=== PATIENT | male | born 1980 | race Two or more races ===

== ENCOUNTER 2024-03-20 08:13 | Emergency (ER) | payer MEDICAID, OTHER ==
[~2024-03-20] VITALS: Ht 180.3 cm; Wt 144.7 kg
--- NOTE | 2024-03-20 08:46 | DVH ---
CHEST RADIOGRAPH Indication: cough Technique: Single frontal view of the chest was obtained Comparison: None FINDINGS: Lines and Tubes: None Lungs: No focal consolidation. Pleura: No effusion. No pneumothorax. Cardiomediastinal contours: Unremarkable Bones: No acute osseous abnormality. IMPRESSION: No acute cardiopulmonary disease.
--- NOTE | 2024-03-20 08:58 | ED.PDOC ---
SOB-HPI HPI Comments 43 year old male presents to the ED with chief complaint of SOB. Patient reports that he has been experiencing SOB with associated wheezing, cough, fever, chills, and sore throat intermittently for the past few weeks. Patient relays that he has needed to wake up multiple times last night gasping for air. Patient states he does not currently have a PCP as he just got insurance. Patient admits to smoking cigarettes. Patient denies any chest pain, dizziness, headache, N/V, or hemoptysis. Chief Complaint: Shortness of Breath Time Seen by MD: 08:54 Reviewed notes: Nurses Notes, Medications, Allergies Information Source: Patient Mode of Arrival: Ambulatory Severity: Moderate Timing: Weeks Duration: Since onset Context: At Rest PE Risk Factors: None History of: None Prehospital treatment: None Modifying Factors: Nothing Associated Signs and Symptoms: Fever, Wheeze, Cough, Sore Throat If cough with SOB: Productive, Yellow Past Medical History PAST MEDICAL HISTORY: Denies Surgical History: Denies all surgeries Family History Family History: Reviewed,noncontributory to illness Social History Smoker: Cigarettes Alcohol: Denies ETOH Use Drugs: Marijuana Lives In: Home Constitutional: reports: chills, fever; denies: diaphoresis, fatigue, malaise, sweats, weakness, others EENTM: reports: throat pain; denies: blurred vision, double vision, ear bleeding, ear discharge, ear drainage, ear pain, ear ringing, eye pain, eye redness, hearing loss, mouth pain, mouth swelling, nasal discharge, nose bleeding, nose congestion, nose pain, photophobia, tearing, throat swelling, voice changes, others Respiratory: reports: cough, shortness of breath, wheezing; denies: hemoptysis, orthopnea, SOB at rest, SOB with excertion, stridor, others Cardiovascular: denies: chest pain, dizzy spells, diaphoresis, Dyspnea on exertion, edema, irregular heart beat, left arm pain, lightheadedness, palpitations, PND, syncope, others Gastrointestinal: denies: abdomen distended, abdominal pain, blood streaked bowels, constipated, diarrhea, dysphagia, difficulty swallowing, hematemesis, melena, nausea, poor appetite, poor fluid intake, rectal bleeding, rectal pain, vomiting, others Genitourinary: denies: burning, dysuria, flank pain, frequency, hematuria, incontinence, penile discharge, penile sore, pain, testicle pain, testicle swelling, urgency, others Neurological: denies: dizziness, fainting, headache, left sided numbness, left sided weakness, numbness, paresthesia, pre-existing deficit, right sided numbness, right sided weakness, seizure, speech problems, tingling, tremors, weakness, others Musculoskeletal: denies: back pain, gout, joint pain, joint swelling, muscle pain, muscle stiffness, neck pain, others Integumetry: denies: bruises, change in color, change in hair/nails, dryness, laceration, lesions, lumps, rash, wounds, others Allergic/Immunocompromised: denies: Difficulty Healing, Frequent Infections, Hives, Itching, others Hematologic/Lymphatic: denies: anemia, blood clots, easy bleeding, easy bruising, swollen glands, others Endocrine: denies: excessive hunger, excessive sweating, excessive thirst, excessive urination, flushing, intolerance to cold, intolerance to heat, unexplained weight gain, unexplained weight loss, others Psychiatric: denies: anxiety, bipolar disorder, depression, hopeless, panic disorder, schizophrenia, sleepless, suicidal, others All Other Systems: Reviewed and Negative Physical Exam General Appearance: No Apparent Distress, Normal HEENT: Normal ENT Inspection, PERRL/EOMI, Pharyngeal Erythema, Other (Bilateral tonsilar edema and pharyngeal erythema, no exudates.) Neck: Full Range of Motion, Non-Tender, Normal, Normal Inspection Respiratory: Chest Non-Tender, Lungs Clear, No Accessory Muscle Use, No Respiratory Distress, Wheezing (Mild expiratory wheezing) Cardiovascular: No Edema, No JVD, No Murmur, No Gallop, Normal Peripheral Pulses, Tachycardia Breast Exam: Deferred Gastrointestinal: No Organomegaly, Non Tender, No Pulsatile Mass, Normal Bowel Sounds, Soft Genitalia: Deferred Pelvic: Deferred Rectal: Deferred Extremities: No calf tenderness, Normal capillary refill, Normal inspection, Normal range of motion, Non-tender, No pedal edema Musculoskeletal : Apperance: Normal 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 Was a procedure done?: No Differential Dx Differential Diagnosis: Asthma, Pneumonia, Respiratory Distress, Pharyngitis, URI X-Ray, Labs, Meds, VS Vital Signs Date Time Temp Pulse Resp B/P (MAP) Pulse Ox O2 Delivery O2 Flow Rate FiO2 03/20/24 10:04 Room Air* 0 21 03/20/24 10:03 100 18 100 Room Air* 0 21 03/20/24 10:02 98.0 100 18 186/121 (142) 97 98.0 03/20/24 08:35 98.1 105 20 172/111 (131) 99 Lab Test 03/20/24 08:49 03/20/24 08:32 Range/Units White Blood Count 9.9 4.4-10.8 10^3/uL Red Blood Count 5.33 4.5-5.90 10^6/uL Hemoglobin 14.3 13.5-17.5 g/dL Hematocrit 44.0 41.0-53.0 % Mean Corpuscular Volume 82.6 80.0-100.0 fL Mean Corpuscular Hemoglobin 26.8 L 28.0-32.0 pg Mean Corpuscular Hemoglobin Concent 32.5 32.0-36.0 g/dL Red Cell Distribution Width 17.0 H 11.8-14.3 % Platelet Count 356 140-450 10^3/uL Mean Platelet Volume 7.7 6.9-10.8 fL Neutrophils (%) (Auto) 67.7 37.0-80.0 % Lymphocytes (%) (Auto) 22.0 10.0-50.0 % Monocytes (%) (Auto) 6.5 0.0-12.0 % Eosinophils (%) (Auto) 1.9 0.0-7.0 % Basophils (%) (Auto) 1.9 0.0-2.0 % Neutrophils # (Auto) 6.7 1.6-8.6 10 ^3/uL Lymphocytes # (Auto) 2.2 0.4-5.4 10 ^3/uL Monocytes # (Auto) 0.6 0-1.3 10 ^3/uL Eosinophils # (Auto) 0.2 0-0.8 10 ^3/uL Basophils # (Auto) 0.2 0-0.2 10 ^3/uL Nucleated Red Blood Cells 0.1 % D-Dimer, Quantitative 1.45 H 0.0-0.49 mg/L FEU Sodium Level 136 136-145 mmol/L Potassium Level 3.9 3.5-5.1 mmol/L Chloride Level 105 98-107 mmol/L Carbon Dioxide Level 27 20-31 mmol/L Anion Gap 4 L 5-15 Blood Urea Nitrogen 16 9-23 mg/dL Creatinine 1.13 0.700-1.30 mg/dL Glomerular Filtration Rate Calc 82 >90 mL/min BUN/Creatinine Ratio 14.2 10.0-20.0 Serum Glucose 151 H 74-106 mg/dL Calcium Level 9.6 8.7-10.4 mg/dL Magnesium Level 2.2 1.6-2.6 mg/dL Total Bilirubin 0.7 0.2-1.0 mg/dL Aspartate Amino Transferase (AST) 36 13-40 U/L Alanine Aminotransferase (ALT) 27 7-40 U/L Alkaline Phosphatase 171 H 46-116 U/L Total Protein 8.1 5.7-8.2 g/dL Albumin 4.3 3.2-4.8 g/dL Influenza Type A Antigen Negative Negative Influenza Type B Antigen Negative Negative SARS-CoV-2 Antigen (Rapid) Negative NEGATIVE Group A Streptococcus Rapid Positive Current Medications Medications (Trade) Dose Ordered Sig/Ahsan Route Start Time Stop Time Status Last Admin Albuterol (Ventolin Medneb) 2.5 mg ONCE ONCE NEB 03/20/24 09:45 03/20/24 09:48 DC 03/20/24 10:04 Methylprednisolone Sodium Succinate (Solu Medrol) 40 mg ONCE ONCE IM 03/20/24 09:45 03/20/24 09:48 DC 03/20/24 10:01 Chest XR: FINDINGS: Lines and Tubes: None Lungs: No focal consolidation. Pleura: No effusion. No pneumothorax. Cardiomediastinal contours: Unremarkable Bones: No acute osseous abnormality. IMPRESSION: No acute cardiopulmonary disease. Time of 1ST Reevaluation: 09:54 Reevaluation 1ST: Improved Patient Education/Counseling: Diagnosis, Treatment Family Education/Counseling: No Family Present Additional Information I reviewed the following notes from patient's past medical encounters: None The following tests were ordered, and results were reviewed by me: Chest XR, COVID swab, Magnesium, Strep swab, Influenza swab, CBC, CMP, D-Dimer, UA Additional Information was gathered from interviewing the following independent historians: None I reviewed and agreed with the following test results read by other providers: Chest XR I discussed treatment and results with medical personnel. Departure 1 Departure Time of Disposition: 11:02 Impression: Primary Impression: COPD exacerbation Additional Impressions: Strep throat Viral URI with cough Disposition: HOME / SELF CARE / HOMELESS Condition: Stable Additional Instructions: Thank you for visiting our Emergency Room. I wish you full and complete recovery. Please follow the following instructions: 1. Take your medication bottles with you to EVERY DOCTOR'S VISIT (including your primary doctor). 2. Please follow up with your primary doctor in 2-3 days or sooner if symptoms do not improve. 3. Please read all the papers given to you at the time of the discharge so that you understand your condition better. 4. Please note that the emergency room visits are focused and not necessarily comprehensive. Therefore, it is possible that some occult medical conditions may go undiagnosed in the ER. 5. The emergency room visits are not and should not be thought of as replacement for regular visits with your primary doctor. 6. Therefore, it is absolutely critical that you follows up with your primary doctor on regular basis to make sure you receives a complete and comprehensive care. 7. I recommended the you take the hospital discharge papers to your primary care physician and other doctors' offices with you. 8. Go to your nearest emergency room if you think your condition gets worse or you think your condition is an emergency. e-Prescriptions Dextromethorphan Polistirex (Robitussin 12 Hour Cough) 30 Mg/5 Ml Kristal 30 MG PO Q6HPRN PRN for 7 Days, #100 ML Prov: JOHN HORNE MD 03/20/24 Penicillin V Potassium (Veetids) 500 Mg Tab 1 TAB PO BID, #20 TAB Prov: JOHN HORNE MD 03/20/24 Prednisone (Prednisone) 10 Mg Mtat 20 MG PO DAILY for 5 Days, #10 PACK Prov: JOHN HORNE MD 03/20/24 Albuterol Sulfate (VENTOLIN MDI) 90 Mcg Ih 90 MCG IN Q4HPRN PRN for 10 Days, #1 INH Prov: JOHN HORNE MD 03/20/24 Discharged With: Self Critical Care Note Critical Care Time?: No Stability Stability form required: No Heart Score Heart Score: Heart Score Response (Comments) Value History N/A 0 EKG N/A 0 Age N/A 0 Risk Factors N/A 0 Troponin N/A 0 Total 0 I personally scribed for JOHN HORNE MD ([email or web address]) on 03/20/24 at 08:58. Electronically submitted by Alcon Pantoja ([email or web address]). I personally scribed for JOHN HORNE MD ([email or web address]) on 03/20/24 at 09:29. Electronically submitted by Alcon Pantoja ([email or web address]). JOHN HORNE MD Mar 20, 2024 08:58
[2024-03-20 09:09] LABS: Basophils # (auto) 0.2 10 ^3/uL (0-0.2); Basophils % (auto) 1.9 % (0.0-2.0); Eosinophils # (auto) 0.2 10 ^3/uL (0-0.8); Eosinophils % (auto) 1.9 % (0.0-7.0); Hemoglobin 14.3 g/dL (13.5-17.5); Lymphocytes # (auto) 2.2 10 ^3/uL (0.4-5.4); Mean Corpuscular Hemoglobin 26.8 pg (28.0-32.0); Mean Corpuscular Hgb Conc. 32.5 g/dL (32.0-36.0); Mean Corpuscular Volume 82.6 fL (80.0-100.0); Monocytes # (auto) 0.6 10 ^3/uL (0-1.3); Monocytes % (auto) 6.5 % (0.0-12.0); Neutrophils # (auto) 6.7 10 ^3/uL (1.6-8.6); Neutrophils % (auto) 67.7 % (37.0-80.0); Nucleated Red Blood Cells % 0.1 %; Platelet Count (auto) 356 10^3/uL (140-450); Red Blood Cells 5.33 10^6/uL (4.5-5.90); White Blood Cell 9.9 10^3/uL (4.4-10.8)
[2024-03-20 09:17] LABS: Alanine Aminotransferase 27 U/L (7-40); Albumin 4.3 g/dL (3.2-4.8); Anion Gap 4 (5-15); Aspartate Aminotransferase 36 U/L (13-40); BUN/Creatinine Ratio 14.2 (10.0-20.0); Blood Urea Nitrogen 16 mg/dL (9-23); Calcium 9.6 mg/dL (8.7-10.4); Carbon Dioxide 27 mmol/L (20-31); Chloride 105 mmol/L (98-107); Magnesium 2.2 mg/dL (1.6-2.6); Potassium 3.9 mmol/L (3.5-5.1); Sodium 136 mmol/L (136-145)
[2024-03-20 09:18] LABS: Bilirubin, Total 0.7 mg/dL (0.2-1.0); Total Protein 8.1 g/dL (5.7-8.2)
[2024-03-20 09:19] LABS: Alkaline Phosphatase 171 U/L (46-116); Glucose 151 mg/dL (74-106)
[2024-03-20 09:26] LABS: COVID19 ANTIGEN SOFIA FIA NEGATIVE (NEGATIVE); Rapid Influenza A Negative (Negative); Rapid Influenza B Negative (Negative); Rapid Strep A Screen-Throat Positive
[2024-03-20] MEDS: methylPREDNISolone SOD SUCC 40 MG/ML VL IM ONE (10:01)
[2024-03-20 10:02] VITALS: BP 186/121; TEMP 98
[2024-03-20 10:03] VITALS: PULSE 100; RESP 18; O2SAT 100
[2024-03-20] MEDS: ALBUTEROL SULF 2.5 MG/0.5ML(0.5%) NEB SOLN NEB ONE (10:04)
[2024-03-20] MEDS: IOHEXOL 350 MG/ML 100ML IJ ONE (10:30)
--- NOTE | 2024-03-20 11:06 | DVH ---
CTA Chest with intravenous contrast INDICATION: SOB, elevated ddimer COMPARISON: None TECHNIQUE: Multidetector spiral CTA of the chest was performed of the chest with intravenous contrast . PULMONARY ANGIOGRAPHY PROTOCOL was utilized using a bolus-tracking technique centered on the main p ulmonary artery. Axial, coronal and sagittal multiplanar and MIP reformats were performed. CONTRAST: Type of contrast: Omni 350 Contrast injected: 100 ml Radiation dose : Chest: CTDI volume is 55 mGy. Dose-length product is 1003.74 mGy*cm The dose indicators for CT are the volume computed Tomography (CT) dose Index (CTDIvol) and the dose Length product (DLP), and are measured in units of mGy and mGy-cm, respectively. These indicators are not patient dose, but values generated from the CT scanner acquisition factors. The report includes radiation exposure data for exposures received during this examination. Findings: Pulmonary artery: No pulmonary embolism Lower neck: Normal thyroid. Lungs: Mild patchy ground-glass opacities in both lungs. Heart/Vascular Structures: [id number] cardiomegaly. Small pericardial effusion. Lymph Nodes: Prominent mediastinal lymph nodes measuring up to 12 mm in short axis. Pleura: No pleural effusion or significant pneumothorax. Musculoskeletal: No acute osseous abnormality. Soft tissues: Normal. Upper abdomen: Limited portions of the upper abdomen are unremarkable. IMPRESSION: 1. No pulmonary embolism. 2. Kumz-ta-[id number] cardiomegaly. Small pericardial effusion. Mediastinal lymphadenopathy. Patchy g round-glass opacities in both lungs are nonspecific. Consider congestive failure. Consider infectiou s/ inflammatory process. Clinical correlation and continued follow-up is recommended. HS:Y
[2024-03-20 11:08] LABS: Urine Bacteria None Seen /hpf (None Seen)
[2024-03-20] MEDS ORDERED: DEXT1SUS PO (11:09)
[2024-03-20] MEDS ORDERED: PRED1PAK9 PO (11:09)
[2024-03-20] MEDS ORDERED: ALBUAER3 IN (11:09)
[2024-03-20] MEDS ORDERED: PENI500T2 PO (11:09)
[2024-03-20 11:27] LABS: Urine Blood Negative /uL (Negative); Urine Clarity Clear (Clear); Urine Color Yellow (Yellow); Urine Protein, UAD Negative (Negative); Urine Squamous Epithelial Cell FEW /hpf (<5); Urine Urobilinogen 2 mg/dL (Negative); Urine WBC 1 /hpf (0 - 3); Urine pH 6.5 (5.0-9.0)
== END 2024-03-20 11:20 | disposition home or self-care (01) ==
LOC: ER 08:13
DX: J44.1 Chronic obstructive pulmonary disease with (acute) exacerbation (principal); J02.0 Streptococcal pharyngitis; F17.210 Nicotine dependence, cigarettes, uncomplicated; Z20.822 Contact with and (suspected) exposure to COVID-19
CPT/HCPCS: 36415; 71045; 71275; 80053; 81001; 83735; 85025; 85379; 87426; 87804; 87880; 94640; 96372; 99285; J2919; Q9967

== ENCOUNTER 2024-03-31 19:10 | Emergency (ER) | payer MEDICAID ==
[~2024-03-31] VITALS: Ht 180.3 cm; Wt 140.9 kg
[~2024-03-31 19:10] MED LIST: ALBUAER3 IN; DEXT1SUS PO; PENI500T2 PO; PRED1PAK9 PO
[2024-03-31 19:13] VITALS: BP 182/119; RESP 20; O2SAT 95
[2024-03-31 19:19] VITALS: PULSE 88
[2024-03-31] MEDS ORDERED: ASPirin 325 MG TAB PO ONE (19:30)
[2024-03-31] MEDS ORDERED: NITROGLYCERIN 0.4 MG SL TAB SL ONE (19:30)
[2024-03-31 19:44] LABS: Basophils # (auto) 0.1 10 ^3/uL (0-0.2); Basophils % (auto) 0.8 % (0.0-2.0); Eosinophils # (auto) 0.2 10 ^3/uL (0-0.8); Eosinophils % (auto) 1.9 % (0.0-7.0); Hemoglobin 13.9 g/dL (13.5-17.5); Lymphocytes # (auto) 1.9 10 ^3/uL (0.4-5.4); Lymphocytes % (auto) 21.2 % (10.0-50.0); Mean Corpuscular Hemoglobin 27.2 pg (28.0-32.0); Mean Corpuscular Hgb Conc. 33.1 g/dL (32.0-36.0); Mean Corpuscular Volume 82.1 fL (80.0-100.0); Monocytes # (auto) 0.9 10 ^3/uL (0-1.3); Monocytes % (auto) 10.3 % (0.0-12.0); Neutrophils % (auto) 65.8 % (37.0-80.0); Nucleated Red Blood Cells % 0.2 %; Platelet Count (auto) 339 10^3/uL (140-450); Red Blood Cells 5.11 10^6/uL (4.5-5.90); Red Cell Distribution Width 17.4 % (11.8-14.3); White Blood Cell 9.1 10^3/uL (4.4-10.8)
--- NOTE | 2024-03-31 19:50 | ED.PDOC ---
HPI Comments HPI: Poor Historian. 43-year-old male presents to emergency department for three day history of midsternal chest pain right-sided 20 minutes prior to arrival. Pain is crushing in nature. Patient has some mild associated nausea and vomiting. Patient states he was admitted in the hospital here a week ago for the same thing. Patient was hypertensive in triage 197/117. The other extremities 182/119. Past Medcial History: COPD, hypertension, obesity Past Surgical History: Denies any Patient denies taking any medications. Has no PCP. REVIEW OF SYSTEMS: CONSTITUTIONAL: Denies acute: fever, diaphoresis, chills, generalized weakness. HEAD: Denies acute: headache, photophobia Eyes: Denies acute: Double vision, vision loss, eye pain, eye discharge. EARS: Denies acute: tinnitus, hearing loss, ear discharge, ear pain, THROAT: Denies acute: sore throat, swelling, difficulty swallowing , pain with swallowing, change in voice. NECK: Denies acute: neck pain, neck swelling, stiff neck. HEART: Denies acute : , palpitations, LUNGS: Denies acute: SOB, wheezing, cough, hemoptysis ABDOMEN: Denies acute: abdominal pain, diarrhea, melena , hematemesis, hematochezia SKIN: Denies acute: rash, redness, lesions, itchiness. EXTREMITIES: Denies acute: calf pain, numbness, tingling, weakness, denies pain in extremity. Denies acute: Low back pain. Neuro: Denies acute: focal neurological deficit, motor or sensory focal neurological deficit, tremors, seizure like activity, confusion, dizziness, change in mental status, loss of bowel or bladder function, cauda equina like symptoms. : Denies acute: dysuria, hematuria, flank pain, increase in urinary frequency. PSYCH: Denies acute: hallucination, suicidal ideation, homicidal ideation. PHYSICAL EXAM: General: mild acute distress, awake and alert. Head: normocephalic, atraumatic. Neck: supple, trachea is midline, no swelling. Throat: Normal phonation. Eyes:, no erythema, no purulent discharge, no proptosis, no icterus. Heart: regular rate, regular rhythm, no significant murmur appreciated. Lungs: no apparent respiratory distress, Able to speak in full sentences. No wheezing, no rhonchi, no crackles. No stridors Clear to auscultation bilaterally. Abdomen: non tender to palpation, non distended, soft, no guarding, no rebound, + bowel sounds. Obese Neuro: Awake, Alert, oriented to name, self, situation, follows commands GCS=15. Speech is normal. Skin: no petechia, no purpura, no cyanosis, non-pale, not jaundice. Lower extremities: --trace bilateral - Pitting edema no deformity, no focal swelling, no calf TTP. Makes eye contact. moves all four extremities. Face: no apparent facial droop. Ambulating in the ED independently. Chief Complaint: Chest Pain Time Seen by MD: 19:11 Reviewed Notes: Nurses Notes, Allergies Allergies: Coded Allergies: Cephalexin (Verified Allergy, Unknown, 03/31/24) Home Meds Active Scripts Dextromethorphan Polistirex (Robitussin 12 Hour Cough) 30 Mg/5 Ml Kristal, 30 MG PO Q6HPRN PRN for 7 Days, #100 ML Prov:JOHN HORNE MD 03/20/24 Penicillin V Potassium (Veetids) 500 Mg Tab, 1 TAB PO BID, #20 TAB Prov:JOHN HORNE MD 03/20/24 Prednisone (Prednisone) 10 Mg Matt, 20 MG PO DAILY for 5 Days, #10 PACK Prov:JOHN HORNE MD 03/20/24 Albuterol Sulfate (VENTOLIN MDI) 90 Mcg Ih, 90 MCG IN Q4HPRN PRN for 10 Days, #1 INH Prov:JOHN HORNE MD 03/20/24 Information Source: Patient Mode of Arrival: Ambulatory Past Medical History PAST MEDICAL HISTORY: Denies Surgical History: Denies all surgeries Family History Family History: Reviewed,noncontributory to illness Social History Smoker: Cigarettes Alcohol: Denies ETOH Use Drugs: Marijuana Lives In: Home X-Ray, Labs, Meds, VS Vital Signs Date Time Temp Pulse Resp B/P (MAP) Pulse Ox O2 Delivery O2 Flow Rate FiO2 03/31/24 19:19 88 03/31/24 19:13 98.7 88 20 182/119 (140) 95 Lab Test 03/31/24 20:03 03/31/24 19:15 Range/Units Troponin I High Sensitivity 41 40 </=54 ng/L White Blood Count 9.1 4.4-10.8 10^3/uL Red Blood Count 5.11 4.5-5.90 10^6/uL Hemoglobin 13.9 13.5-17.5 g/dL Hematocrit 42.0 41.0-53.0 % Mean Corpuscular Volume 82.1 80.0-100.0 fL Mean Corpuscular Hemoglobin 27.2 L 28.0-32.0 pg Mean Corpuscular Hemoglobin Concent 33.1 32.0-36.0 g/dL Red Cell Distribution Width 17.4 H 11.8-14.3 % Platelet Count 339 140-450 10^3/uL Mean Platelet Volume 7.5 6.9-10.8 fL Neutrophils (%) (Auto) 65.8 37.0-80.0 % Lymphocytes (%) (Auto) 21.2 10.0-50.0 % Monocytes (%) (Auto) 10.3 0.0-12.0 % Eosinophils (%) (Auto) 1.9 0.0-7.0 % Basophils (%) (Auto) 0.8 0.0-2.0 % Neutrophils # (Auto) 6.0 1.6-8.6 10 ^3/uL Lymphocytes # (Auto) 1.9 0.4-5.4 10 ^3/uL Monocytes # (Auto) 0.9 0-1.3 10 ^3/uL Eosinophils # (Auto) 0.2 0-0.8 10 ^3/uL Basophils # (Auto) 0.1 0-0.2 10 ^3/uL Nucleated Red Blood Cells 0.2 % D-Dimer, Quantitative 1.22 H 0.0-0.49 mg/L FEU Sodium Level 138 136-145 mmol/L Potassium Level 4.5 3.5-5.1 mmol/L Chloride Level 106 98-107 mmol/L Carbon Dioxide Level 23 20-31 mmol/L Anion Gap 9 5-15 Blood Urea Nitrogen 19 9-23 mg/dL Creatinine 1.07 0.700-1.30 mg/dL Glomerular Filtration Rate Calc 88 >90 mL/min BUN/Creatinine Ratio 17.8 10.0-20.0 Serum Glucose 176 H 74-106 mg/dL Lactic Acid Level 1.8 0.4-2.0 mmol/L Calcium Level 9.7 8.7-10.4 mg/dL Magnesium Level 2.0 1.6-2.6 mg/dL Total Bilirubin 0.6 0.2-1.0 mg/dL Aspartate Amino Transferase (AST) 33 13-40 U/L Alanine Aminotransferase (ALT) 28 7-40 U/L Alkaline Phosphatase 177 H 46-116 U/L B-Type Natriuretic Peptide 422.86 0-100 pg/mL Total Protein 7.0 5.7-8.2 g/dL Albumin 4.2 3.2-4.8 g/dL Departure 1 Departure Time of Disposition: 21:14 Impression: Primary Impression: Chest pain Additional Impressions: Hypertension Eloped from emergency department Disposition: 07 LEFT AWOL/ELOPED Condition: Other JULIANNA DUFF DO Mar 31, 2024 19:50
--- NOTE | 2024-03-31 19:51 | DVH ---
CHEST RADIOGRAPH Indication: cp/sob Technique: Single frontal view of the chest was obtained COMPARISON: XY CHEST PORTABLE on DOS: 03/20/24 FINDINGS: Lines and Tubes: None Lungs: Congestion Pleura: No effusion. No pneumothorax. Cardiomediastinal contours: Cardiomegaly Bones: Unremarkable IMPRESSION: Congestion
[2024-03-31 20:04] LABS: Alanine Aminotransferase 28 U/L (7-40); Albumin 4.2 g/dL (3.2-4.8); Anion Gap 9 (5-15); Aspartate Aminotransferase 33 U/L (13-40); BUN/Creatinine Ratio 17.8 (10.0-20.0); Blood Urea Nitrogen 19 mg/dL (9-23)
[2024-03-31 20:05] LABS: Bilirubin, Total 0.6 mg/dL (0.2-1.0)
[2024-03-31 20:06] LABS: Alkaline Phosphatase 177 U/L (46-116); Calcium 9.7 mg/dL (8.7-10.4); Carbon Dioxide 23 mmol/L (20-31); Chloride 106 mmol/L (98-107); Glucose 176 mg/dL (74-106); Potassium 4.5 mmol/L (3.5-5.1); Sodium 138 mmol/L (136-145)
[2024-03-31] MEDS ORDERED: FUROSEMIDE 20 MG/2 ML VIAL IV ONE (20:45)
--- NOTE | 2024-03-31 20:46 | ECG ---
[facility] Test Date: 2024-03-31 Test Time: 19:19:09 Pat Name: RYAN HERNANDEZ Department: ER Room: Gender: M Safety Tech: DESI : 1980 Requested By: JULIANNA DUFF Order Number: [id number] Reading MD: Christo Moura Measurements Intervals [place] Rate: 88 P: 57 [place]: 190 QRS: 82 QRSD: 119 T: 49 QT: 387 QTc: 469 Interpretive Statements Sinus arrhythmia Probable left atrial enlargement Nonspecific intraventricular conduction delay Electronically Signed On 04-02-2024 16:41:04 PST by Christo Moura Please click the below link to view image of tracing.
== END 2024-03-31 21:07 | disposition left against medical advice (07) ==
LOC: EDBD → ER 19:10
DX: R07.89 Other chest pain (principal); I10 Essential (primary) hypertension; F17.210 Nicotine dependence, cigarettes, uncomplicated; J44.9 Chronic obstructive pulmonary disease, unspecified; E66.9 Obesity, unspecified; Z79.52 Long term (current) use of systemic steroids; Z88.1 Allergy status to other antibiotic agents; Z79.899 Other long term (current) drug therapy
CPT/HCPCS: 36415; 71045; 80053; 80307; 81001; 83605; 83735; 83880; 84484; 85025; 85379; 93005

== ENCOUNTER 2024-04-02 07:06 | Inpatient (IN) | payer MEDICAID ==
[~2024-04-02] VITALS: Ht 177.8 cm; Wt 140.0 kg
--- NOTE | 2024-04-02 07:22 | ED.PDOC ---
SOB-HPI HPI Comments 43 year old male presents to the ED with chief complaint of SOB. Patient reports that he has been experiencing SOB with associated coughing and chest discomfort for the past week, however, he has also had hemoptysis and leg swelling since yesterday. Patient notes he has history of COPD and CHF, however, patient denies taking a water pill. Patient's BP noted to be 182/108 in triage. Patient denies any N/V/D, fever, chills, sore throat, numbness, or weakness. Chief Complaint: Shortness of Breath Time Seen by MD: 07:19 Reviewed notes: Nurses Notes, Medications, Allergies Information Source: Patient Mode of Arrival: Ambulatory Severity: Moderate Timing: Days Duration: Since onset Context: At Rest PE Risk Factors: None History of: COPD, CHF Prehospital treatment: None Modifying Factors: Nothing Associated Signs and Symptoms: Cough, Hemoptysis, Chest Pain, Leg Swelling Quality: Pressure Radiation: No Radiation Location: Substernal If cough with SOB: Productive, Brown, Bloody Past Medical History PAST MEDICAL HISTORY: Denies Surgical History: Denies all surgeries Family History Family History: Reviewed,noncontributory to illness Social History Smoker: Cigarettes Alcohol: Denies ETOH Use Drugs: Marijuana Lives In: Home Constitutional: denies: chills, diaphoresis, fatigue, fever, malaise, sweats, weakness, others EENTM: denies: blurred vision, double vision, ear bleeding, ear discharge, ear drainage, ear pain, ear ringing, eye pain, eye redness, hearing loss, mouth pain, mouth swelling, nasal discharge, nose bleeding, nose congestion, nose pain, photophobia, tearing, throat pain, throat swelling, voice changes, others Respiratory: reports: cough, hemoptysis, shortness of breath; denies: orthopnea, SOB at rest, SOB with excertion, stridor, wheezing, others Cardiovascular: reports: chest pain, edema; denies: dizzy spells, diaphoresis, Dyspnea on exertion, irregular heart beat, left arm pain, lightheadedness, palpitations, PND, syncope, others Gastrointestinal: denies: abdomen distended, abdominal pain, blood streaked bowels, constipated, diarrhea, dysphagia, difficulty swallowing, hematemesis, melena, nausea, poor appetite, poor fluid intake, rectal bleeding, rectal pain, vomiting, others Genitourinary: denies: burning, dysuria, flank pain, frequency, hematuria, incontinence, penile discharge, penile sore, pain, testicle pain, testicle swelling, urgency, others Neurological: denies: dizziness, fainting, headache, left sided numbness, left sided weakness, numbness, paresthesia, pre-existing deficit, right sided numbness, right sided weakness, seizure, speech problems, tingling, tremors, weakness, others Musculoskeletal: denies: back pain, gout, joint pain, joint swelling, muscle pain, muscle stiffness, neck pain, others Integumetry: denies: bruises, change in color, change in hair/nails, dryness, laceration, lesions, lumps, rash, wounds, others Allergic/Immunocompromised: denies: Difficulty Healing, Frequent Infections, Hives, Itching, others Hematologic/Lymphatic: denies: anemia, blood clots, easy bleeding, easy bruising, swollen glands, others Endocrine: denies: excessive hunger, excessive sweating, excessive thirst, excessive urination, flushing, intolerance to cold, intolerance to heat, unexplained weight gain, unexplained weight loss, others Psychiatric: denies: anxiety, bipolar disorder, depression, hopeless, panic disorder, schizophrenia, sleepless, suicidal, others All Other Systems: Reviewed and Negative Physical Exam General Appearance: Moderate Distress, Other (Increased BMI) HEENT: Normal ENT Inspection, PERRL/EOMI Neck: Full Range of Motion, Non-Tender, Normal, Normal Inspection Respiratory: Chest Non-Tender, Lungs Clear, No Accessory Muscle Use, No Respiratory Distress, Normal Breath Sounds Cardiovascular: No Edema, No JVD, No Murmur, No Gallop, Normal Peripheral Pulses, Regular Rate/Rhythm Breast Exam: Deferred Gastrointestinal: No Organomegaly, Non Tender, No Pulsatile Mass, Normal Bowel Sounds, Soft Genitalia: Deferred Pelvic: Deferred Rectal: Deferred Extremities: No calf tenderness, Normal capillary refill, Normal range of motion, Non-tender, Pedal edema Musculoskeletal : Apperance: Normal Neurologic: Alert, business practices supervisor II-XII nml as Tested, No Motor Deficits, Normal Affect, Normal Mood, No Sensory Deficits Cerebellar Function: NOT DONE Reflexes: NOT DONE Skin: Dry, Normal Color, Warm Peripheral Pulses: 3+ Radial (R), 3+ Radial (L) Lymphatic: No Adenopathy Was a procedure done? Was a procedure done?: No Differential Dx Differential Diagnosis: Anxiety, Asthma, Bronchitis, CHF, COPD X-Ray, Labs, Meds, VS Vital Signs Date Time Temp Pulse Resp B/P (MAP) Pulse Ox O2 Delivery O2 Flow Rate FiO2 04/02/24 07:07 98 04/02/24 07:06 98.5 115 24 182/108 (132) 97 Patient alert. Came in because of shortness a breath. Vitals stable Answering questions Placed on oxygen. Blood pressure elevated. Bilateral lower extremity swelling pain Tachycardia. Rule out PE. Rule out CHF. Possibly uses drugs. Counseled patient on effects of smoking cigarettes for 15 minutes. Explained to the patient. EKG reviewed does show chronic changes. Continue cardiac monitoring. Time of 1ST Reevaluation: 08:19 Reevaluation 1ST: Unchanged Patient Education/Counseling: Diagnosis, Treatment Family Education/Counseling: No Family Present Departure 1 Departure Time of Disposition: 07:27 Impression: Primary Impression: Acute respiratory failure Qualified Codes: J96.01 - Acute respiratory failure with hypoxia Additional Impressions: COPD exacerbation CHF (congestive heart failure) Qualified Codes: I50.43 - Acute on chronic combined systolic (congestive) and diastolic (congestive) heart failure Disposition: ADMITTED INPATIENT Admit to: Med Surg Condition: Guarded Critical Care Note Critical Care Time?: Yes (90 min-critical care time only) Critical care comment: Placed on oxygen Stability Stability form required: No Heart Score Heart Score: Heart Score Response (Comments) Value History Highly Suspicious 2 EKG Normal 0 Age <45 0 Risk Factors 1 or 2 risk factors 1 Troponin Normal limit 0 Total 3 I personally scribed for HERRERA SANTOS MD ([email or web address]) on 04/02/24 at 07:22. Electronically submitted by Alcon Pantoja ([email or web address]). HERRERA SANTOS MD Apr 02, 2024 07:22
[2024-04-02 07:47] LABS: Basophils # (auto) 0.1 10 ^3/uL (0-0.2); Eosinophils # (auto) 0.2 10 ^3/uL (0-0.8); Lymphocytes # (auto) 1.8 10 ^3/uL (0.4-5.4)
--- NOTE | 2024-04-02 07:47 | DVH ---
Procedure: XY CHEST PORTABLE 04/02/2024 07:28 AM Indication: SOB Comparison: XY CHEST PORTABLE on DOS: 03/31/24, XY CHEST PORTABLE on DOS: 03/20/24 TECHNIQUE: XY CHEST PORTABLE FINDINGS: Medical devices: None. Cardiomediastinal: The heart is moderately enlarged. Pulmonary vasculature is prominent. Lungs: Reticular opacities noted bilaterally. No lobar pulmonary opacity is seen. The costophrenic a ngles are clear. No pneumothorax. Bones/soft tissues: No acute abnormality is noted. IMPRESSION: 1. Moderate cardiomegaly and pulmonary venous congestion with suggestion of interstitial edema.
[2024-04-02 07:49] LABS: Basophils % (auto) 0.6 % (0.0-2.0); Eosinophils % (auto) 1.5 % (0.0-7.0); Hematocrit 39.9 % (41.0-53.0); Hemoglobin 13.3 g/dL (13.5-17.5); Lymphocytes % (auto) 16.8 % (10.0-50.0); Mean Corpuscular Hemoglobin 27.4 pg (28.0-32.0); Mean Corpuscular Hgb Conc. 33.3 g/dL (32.0-36.0); Mean Corpuscular Volume 82.2 fL (80.0-100.0); Monocytes % (auto) 9.2 % (0.0-12.0); Neutrophils # (auto) 7.8 10 ^3/uL (1.6-8.6); Neutrophils % (auto) 71.9 % (37.0-80.0); Platelet Count (auto) 314 10^3/uL (140-450); Red Blood Cells 4.85 10^6/uL (4.5-5.90); Red Cell Distribution Width 17.6 % (11.8-14.3); White Blood Cell 10.8 10^3/uL (4.4-10.8)
[2024-04-02 07:54] LABS: Chloride 107 mmol/L (98-107); Sodium 138 mmol/L (136-145)
[2024-04-02 07:55] LABS: Anion Gap 8 (5-15); Calcium 8.9 mg/dL (8.7-10.4); Carbon Dioxide 23 mmol/L (20-31)
[2024-04-02 08:00] LABS: BUN/Creatinine Ratio 18.1 (10.0-20.0); Blood Urea Nitrogen 17 mg/dL (9-23)
[2024-04-02 08:04] LABS: Glucose 132 mg/dL (74-106)
[2024-04-02] MEDS ORDERED: NITROGLYCERIN 0.4 MG SL TAB SL PRN (09:15)
--- NOTE | 2024-04-02 09:24 | DVHHP2 ---
History of Present Illness Reason for Visit: Shortness of the breath and cough History of Present Illness 43-year-old male past medical history COPD CHF PE hypertension MRSA cellulitis surgical history right foot surgery chief complaint patient states he is currently living in his car and he states that he has been having some shortness of the breath and leg swelling has been going on for one week. Patient states he has not been able to get around due to limited in the car. He states he was taking his meds prescribed he saw his primary medical doctor last March 20, 2024. He did state he was just finished his medications yesterday. He has some steroids and inhalers. Patient does state he has a more swelling to his lower extremities. He does state he had COPD and CHF. When evaluating patient's labs and imaging CBC was unremarkable troponin was positive x3 BNP was elevated greater than 300 glucose was 132 chest x-ray shows cardiomegaly and pulmonary vascular congestion was consistent with CHF. With these findings we will admit and ask for Cardiology evaluation also we will consult social and political studies professor for discharge planning since patient is in his car living Past Medical History See HPI above Past Surgical History Right foot surgery Family History Reviewed, non-contributory to the management of this case. Past Social History Patient does smoke by history denies drug or alcohol use Review of Systems Constitutional: No: Fever, Chills, Sweats, Weakness, Malaise, Other Eyes: No: Pain, Vision change, Conjunctivae inflammation, Eyelid inflammation, Other, Redness ENT: No: Ear pain, Ear discharge, Nose pain, Nose discharge, Nose congestion, Mouth pain, Mouth swelling, Throat pain, Throat swelling, Other Respiratory: Shortness of breath, SOB with excertion; No: Cough, Dry, Wheezing, Hemoptysis, Pleuritic Pain, Sputum, Wheezing, Other Cardiovascular: No: Chest Pain, Palpitations, Orthopnea, Paroxysmal Noc. Dyspnea, Edema, Lt Headedness, Other Gastrointestinal: No: Nausea, Vomiting, Abdominal Pain, Diarrhea, Constipation, Melena, Hematochezia, Other Genitourinary: No Dysuria, No Frequency, No Incontinence, No Hematuria, No Retention, No Other Musculoskeletal: No: other, neck pain, shoulder pain, arm pain, back pain, hand pain, leg pain, foot pain Skin: No: Rash, Lesions, Jaundice, Bruising, Other Neurological: No: Weakness, Numbness, Incoordination, Change in speech, Confusion, Seizures, Other Allergies: Coded Allergies: Cephalexin (Verified Allergy, Unknown, 03/31/24) Exam Vital Signs Vital Signs Date Time Temp Pulse Resp B/P (MAP) Pulse Ox O2 Delivery O2 Flow Rate FiO2 04/02/24 07:07 98 04/02/24 07:06 98.5 24 182/108 (132) 97 General Appearance: Alert, Oriented X3, Cooperative, mild distress HEENT: Atraumatic, PERRLA, EOMI, Mucous membr. moist/pink Respiratory: Other (Diminished lung sounds throughout) Cardiovascular: Regular rate, Normal S1, Normal S2, No murmurs Abdominal: Normal bowel sounds, Soft, No tenderness, No hepatospenomegaly, No masses Extremities: No clubbing, No cyanosis, Normal pulses, No tenderness/swelling, Other (Bilateral lower extremity edema) Skin: No rashes, No breakdown, No significant lesion Neuro: Normal gait, Normal speech, Strength at 5/5 X4 ext, Normal tone, Sensation intact, Cranial nerves 3-12 NL Psych/Mental Status: Mental status NL, Mood NL Labs/Xrays Chest x-ray shows cardiomegaly pulmonary vascular congestion I reviewed labs, imaging CT scan abdomen pelvis, EKG and all diagnostic studies on this patient from ED records and the medical chart Labs Test 04/02/24 08:34 04/02/24 07:26 Range/Units Troponin I High Sensitivity 85 *H </=54 ng/L White Blood Count 10.8 4.4-10.8 10^3/uL Red Blood Count 4.85 4.5-5.90 10^6/uL Hemoglobin 13.3 L 13.5-17.5 g/dL Hematocrit 39.9 L 41.0-53.0 % Mean Corpuscular Volume 82.2 80.0-100.0 fL Mean Corpuscular Hemoglobin 27.4 L 28.0-32.0 pg Mean Corpuscular Hemoglobin Concent 33.3 32.0-36.0 g/dL Red Cell Distribution Width 17.6 H 11.8-14.3 % Platelet Count 314 140-450 10^3/uL Mean Platelet Volume 7.5 6.9-10.8 fL Neutrophils (%) (Auto) 71.9 37.0-80.0 % Lymphocytes (%) (Auto) 16.8 10.0-50.0 % Monocytes (%) (Auto) 9.2 0.0-12.0 % Eosinophils (%) (Auto) 1.5 0.0-7.0 % Basophils (%) (Auto) 0.6 0.0-2.0 % Neutrophils # (Auto) 7.8 1.6-8.6 10 ^3/uL Lymphocytes # (Auto) 1.8 0.4-5.4 10 ^3/uL Monocytes # (Auto) 1.0 0-1.3 10 ^3/uL Eosinophils # (Auto) 0.2 0-0.8 10 ^3/uL Basophils # (Auto) 0.1 0-0.2 10 ^3/uL Nucleated Red Blood Cells 0.0 % Sodium Level 138 136-145 mmol/L Potassium Level 4.0 3.5-5.1 mmol/L Chloride Level 107 98-107 mmol/L Carbon Dioxide Level 23 20-31 mmol/L Anion Gap 8 5-15 Blood Urea Nitrogen 17 9-23 mg/dL Creatinine 0.94 0.700-1.30 mg/dL Glomerular Filtration Rate Calc 103 >90 mL/min BUN/Creatinine Ratio 18.1 10.0-20.0 Serum Glucose 132 H 74-106 mg/dL Calcium Level 8.9 8.7-10.4 mg/dL B-Type Natriuretic Peptide 330.10 0-100 pg/mL Assessment/Plan Assessment/Plan Acute on chronic diastolic systolic heart failure NYHA class III cxr shows pulmonary edema bnp elevated ordered echo fu results ordered Lasix, metoprolol, asa. atorvastatin Plavix Jardiance Entresto strict i/o's bnp >300 consider bipap if worsening resp distress ordered cards consult fu recs restrict sodium daily wt Acute elevation in troponin likely NSTEMI type 2 due to heart failure ekg no stemi, trop x3 ordered Cards consult pending eval and recs ordered asa atorvastatin ordered echo fu results ordered morphine as needed for pain, ordered nitro prn Acute Hypertension emergency ordered labetolol x1 Order Entresto metoprolol Chronic problems COPD ordered albuterol and atrovent prn sob Hypertension cont home medication chf PE mrsa cellulitis Tobacco dependence I counseled the patient for 6 min about smoking suggestions did offer nicotine patch but patient declined patch and tobacco education smoking code [id number] Homelessness sleeping in car Can consult social and political studies professor for resources fen/ppx diet hl no gi ppx since no hx of gerds or gi bleed lovenox no scd until dvt ruled out plan admit to tele for diuresis Acute congestive systolic or diastolic heart failure/Acute on chronic hfpef or hfref Patient had echo performed January 30, 2022 EF 25 to 30% Lasix, Coreg, asa. atorvastatin enalapril strict i/o's bnp 1200 consider bipap if worsening resp distress consider card request restrict sodium daily wt acute copd Plan discussed with: Patient My Orders Orders - SAMMY DAVIS DNP Procedure Category Date Status Time Admit ADMIT 04/02/24 Verified 09:15 Advance Directive HERBERTH 04/02/24 Verified 09:15 Vital Signs HERBERTH 04/02/24 Verified 09:15 Maintain Fluid HERBERTH 04/02/24 Verified Restrictions 09:15 Obtain Daily Weight HERBERTH 04/02/24 Verified 09:15 Atorvastatin (Lipitor) PHA 04/02/24 Verified 22:00 Metoprolol Tartrate PHA 04/02/24 Verified Tablet (Lopressor Ta 10:00 Date of Service: Apr 02, 2024 Billing Provider: SAMMY DAVIS DNP Common Visit Codes: [id number] INP/OBS CARE (HIGH) SAMMY DAVIS DNP Apr 02, 2024 09:24
--- NOTE | 2024-04-02 10:00 | DVH ---
BILATERAL LOWER EXTREMITY VENOUS DOPPLER CLINICAL HISTORY: EVAL FOR DVT Technique: Duplex Doppler evaluation of the deep venous systems of both lower extremities from the co mmon femoral veins to the popliteal veins including color Doppler and spectral/pulsed waveform analys is was performed. COMPARISON: None FINDINGS: The right and left common femoral, superficial femoral, popliteal, posterior tibial and peroneal vei ns appear patent with normal augmentation, phasicity, compressibility and color-flow. IMPRESSION: 1. There is no sonographic evidence for DVT in the lower extremities. HS:Y
[2024-04-02] MEDS: SACUBITRIL-VALSARTAN 24mg/26mg TAB PO SCH (10:19)
[2024-04-02] MEDS: SPIRONOLACTONE 25 MG TAB PO SCH (10:19)
[2024-04-02] MEDS: METOPROLOL TARTRATE 25 MG TAB PO SCH (10:27)
[2024-04-02] MEDS: EMPAGLIFLOZIN 10 MG TAB PO SCH (10:27)
[2024-04-02] MEDS: ENOXAPARIN SOD 100 MG/1 ML SYRINGE SC SCH (10:29)
[2024-04-02 10:54] LABS: INR 1.06 (0.9-1.15); Prothrombin Time 11.2 sec (9.3-11.8)
--- NOTE | 2024-04-02 11:00 | DVHINCON2 ---
Date Seen: Apr 02, 2024 Referring Physician ELMER Garcia Reason for Consultation Evaluation for acute CHF History of Present Illness This is a 43-year-old male patient who presents to the emergency room for chief complaint of shortness of breath for one week. Patient reports dyspnea on exer tion as well as orthopnea. He comes to the emergency room for further evaluation. Upon emergency room arrival, the patient's blood pressure was noted to reach as high as 182/108. Cardiology has now been consulted for acute CHF exacerbation. Initial twelve lead electrocardiogram reveals normal sinus rhythm and prolonged QTc interval. Initial troponin level of 85ng/L with flat trend thereafter. Initial BNP level of 330.10pg/mL. Significant past medical history includes congestive heart failure, hypertension, previous DVT to lower extremity (patient unsure which leg), COPD, Conway's palsy, methamphetamine abuse, tobacco use, and morbid obesity. 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 He also denies taking any prescription medications. He admits to recent methamphetamine use within the last few days. Past Medical History Past medical history reviewed. No other significant than mentioned above. Past Surgical History Denies Family History Family history reviewed. Social History Patient has a 13 pack-year history, quit smoking approximately one week ago Patient reports recent methamphetamine use within the last few days Patient denies any alcohol use Allergies: Coded Allergies: Cephalexin (Verified Allergy, Unknown, 03/31/24) Home Meds Active Scripts Dextromethorphan Polistirex (Robitussin 12 Hour Cough) 30 Mg/5 Ml Kristal, 30 MG PO Q6HPRN PRN for 7 Days, #100 ML Prov:JOHN HORNE MD 03/20/24 Penicillin V Potassium (Veetids) 500 Mg Tab, 1 TAB PO BID, #20 TAB Prov:OJHN HORNE MD 03/20/24 Prednisone (Prednisone) 10 Mg Matt, 20 MG PO DAILY for 5 Days, #10 PACK Prov:JOHN HORNE MD 03/20/24 Albuterol Sulfate (VENTOLIN MDI) 90 Mcg Ih, 90 MCG IN Q4HPRN PRN for 10 Days, #1 INH Prov:JOHN HORNE MD 03/20/24 Home Meds Patient denies taking any prescribed medications Current Medications Current Medications Medications (Trade) Dose Ordered Sig/Ahsan Route PRN Reason Start Time Stop Time Status Last Admin Atorvastatin Calcium (Lipitor) 40 mg HS PO 04/02/24 22:00 Metoprolol Tartrate (Lopressor Tablet) 25 mg BID PO 04/02/24 10:00 04/02/24 10:27 Sacubitril/ Valsartan (Entresto 24-26 Mg tab) 1 tab BID PO 04/02/24 10:00 04/02/24 10:19 Empaglifozin (Jardiance) 10 mg DAILY PO 04/02/24 10:00 04/02/24 10:27 Furosemide (Lasix Injection) 60 mg BID IV 04/02/24 10:00 Spironolactone (Aldactone) 25 mg DAILY PO 04/02/24 10:00 04/02/24 10:19 Nitroglycerin (Ntrostat Sublingual) 0.4 mg Q5MINP PRN SL FOR CHEST PAIN 04/02/24 09:15 Enoxaparin Sodium (Lovenox) 140 mg Q12HR SC 04/02/24 10:00 04/02/24 10:29 Review of Systems Constitutional: No symptom reported Ears, Nose, & Throat: No symptom reported Eyes: No symptom reported Neurological: No symptoms reported Pulmonary/Respiratory: Shortness of breath Cardiovascular: No symptom reported Gastrointestinal: No symptom reported Genitourinary: No symptom reported Musculoskeletal: No symptom reported Skin: No symptom reported Psychiatric: No symptom reported Endocrine: No symptom reported Hematologic/Lymphatic: No symptom reported Vital Signs Vital Signs Date Time Temp Pulse Resp B/P (MAP) Pulse Ox O2 Delivery O2 Flow Rate FiO2 04/02/24 10:27 96 176/126 04/02/24 07:06 98.5 24 97 Physical Exam General Appearance: Cooperative. Morbidly obese Pulmonary/Respiratory: Coarse bilateral upper lobes. Diminished bilateral lower lobes Cardiovascular/Chest: Regular rate and rhythm. Peripheral Pulses: 2+ Radial (R). 2+ Radial (L). Abdominal Exam: Normal bowel sounds. Ankle Exam: 3+ pitting edema Lower extremities: 3+ pitting edema Neuro/Mental Status: A/OX4, coherent. Thoughts/Psych: Normal thought pattern. Appropriate mood and affect. Good judgment and insight. Appearance: No acute distress. Skin Exam: Left lower extremity blisters. Skin warm and dry Labs/Diagnostic Data Labs Test 04/02/24 10:24 04/02/24 09:57 04/02/24 07:26 Range/Units White Blood Count 10.8 4.4-10.8 10^3/uL Red Blood Count 4.85 4.5-5.90 10^6/uL Hemoglobin 13.3 L 13.5-17.5 g/dL Hematocrit 39.9 L 41.0-53.0 % Mean Corpuscular Volume 82.2 80.0-100.0 fL Mean Corpuscular Hemoglobin 27.4 L 28.0-32.0 pg Mean Corpuscular Hemoglobin Concent 33.3 32.0-36.0 g/dL Red Cell Distribution Width 17.6 H 11.8-14.3 % Platelet Count 314 140-450 10^3/uL Mean Platelet Volume 7.5 6.9-10.8 fL Neutrophils (%) (Auto) 71.9 37.0-80.0 % Lymphocytes (%) (Auto) 16.8 10.0-50.0 % Monocytes (%) (Auto) 9.2 0.0-12.0 % Eosinophils (%) (Auto) 1.5 0.0-7.0 % Basophils (%) (Auto) 0.6 0.0-2.0 % Neutrophils # (Auto) 7.8 1.6-8.6 10 ^3/uL Lymphocytes # (Auto) 1.8 0.4-5.4 10 ^3/uL Monocytes # (Auto) 1.0 0-1.3 10 ^3/uL Eosinophils # (Auto) 0.2 0-0.8 10 ^3/uL Basophils # (Auto) 0.1 0-0.2 10 ^3/uL Nucleated Red Blood Cells 0.0 % Prothrombin Time 11.2 9.3-11.8 sec Prothrombin Time INR 1.06 0.9-1.15 D-Dimer, Quantitative 0.88 H 0.0-0.49 mg/L FEU Sodium Level 138 136-145 mmol/L Potassium Level 4.0 3.5-5.1 mmol/L Chloride Level 107 98-107 mmol/L Carbon Dioxide Level 23 20-31 mmol/L Anion Gap 8 5-15 Blood Urea Nitrogen 17 9-23 mg/dL Creatinine 0.94 0.700-1.30 mg/dL Glomerular Filtration Rate Calc 103 >90 mL/min BUN/Creatinine Ratio 18.1 10.0-20.0 Serum Glucose 132 H 74-106 mg/dL Calcium Level 8.9 8.7-10.4 mg/dL Magnesium Level 2.0 1.6-2.6 mg/dL B-Type Natriuretic Peptide 330.10 0-100 pg/mL Thyroid Stimulating Hormone (TSH) 3.46 0.55-4.78 uIU/mL Assessment Acute on chronic decompensated HFrEF, NYHA class IV Hypertensive urgency NSTEMI, likely type II secondary to above COPD History of DVT Amphetamine abuse Tobacco use Medical noncompliance Morbid obesity Plan/Recommendation We will continue with the following plan/recommendations (Dr. 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 We will continue with conservative medical management. We will initiate the patient on guideline directed medical therapy for CHF and initiate aggressive diuresis as tolerated. The patient may qualify for future ICD placement if no improvement in EF within 3-6 months on GDMT. Patient was also counseled on importance of medication adherence and cessation of substance abuse. Thank you for allowing us to care for this patient. Please call with any questions or concerns. Critical care time spent: 42 minutes This medical document was created using an electronic medical record system with voice recognition software and computerized dictation system. Although this document has been carefully reviewed, there might still be some phonetic and typographical errors. Occasional wrong-word or ``sound-alike substitutions may have occurred due to the inherent limitations of voice recognition software. These areas are purely typographical due to imperfections of the software programs and do not reflect any compromise in the patient's medical care. Please read the chart carefully and recognize, using context, where these substitutions have occurred. Plan discussed with: Patient NYHA Physical activity limitations: Class4(Severe)discomfort (w any activit,symptoms at rest) Date of Service: Apr 02, 2024 Billing Provider: LEON NELSON MD Cardiology Common Codes: 12236-LWUBZCD INP/OBS CARE (High) Cardiology Consultation Codes: [id number] CONSULT <45MIN VIOLETTA DAVILA Apr 02, 2024 11:00
[2024-04-02 11:02] LABS: Rapid Influenza A Negative (Negative); Rapid Influenza B Negative (Negative)
[2024-04-02 11:03] LABS: COVID19 ANTIGEN SOFIA FIA NEGATIVE (NEGATIVE)
[2024-04-02] MEDS: FUROSEMIDE 100 MG/10ML VIAL IV SCH (11:08)
[2024-04-02 12:16] LABS: Urine Bacteria None Seen /hpf (None Seen)
[2024-04-02] MEDS: LABETALOL HCL 20 MG/4 ML VL IV ONE (12:21)
[2024-04-02 12:22] LABS: Urine Blood Negative /uL (Negative); Urine Clarity Clear (Clear); Urine Protein, UAD Negative (Negative); Urine Specific Gravity 1.005 (1.001-1.035); Urine Squamous Epithelial Cell FEW /hpf (<5); Urine Urobilinogen Normal (Negative); Urine WBC < 1 /HPF (0-3)
[2024-04-02 12:26] LABS: Urine Color Light-Yellow (Yellow)
[2024-04-02] MEDS ORDERED: ONDANSETRON HCL 4 MG/2 ML VIAL IV PRN (12:30)
[2024-04-02] MEDS ORDERED: HYDROcodone-ACET 5/325MG TAB PO PRN (12:30)
[2024-04-02] MEDS ORDERED: MORPHINE SULFATE INJ 2 MG/ml SYRG IV PRN (12:30)
[2024-04-02 12:49] LABS: Amphetamine Screen, Urine Pos (NEGATIVE); Barbiturate Scree,Urine Neg (NEGATIVE); Benzodiazephine Screen, Urine Neg (NEGATIVE); Cannabinoid Screen, Urine Neg (NEGATIVE); Cocaine Screen, Urine Neg (NEGATIVE); Opiate Scree,Urine Neg (NEGATIVE); Phencyclidine Screen, Urine Neg (NEGATIVE)
[2024-04-02 13:00] VITALS: PULSE 85; RESP 95; O2SAT 95
--- NOTE | 2024-04-02 15:17 | DVHSR ---
APPROVED REPORT EXAM: Two-dimensional and M-mode echocardiogram with Doppler, color Doppler and Bubble Study. Blood Pressure: 180/108 mmHg INDICATION Eval for Cardiac Function and EF RISK FACTORS Obesity: Height: 5' 10", Weight: 308 DIMENSIONS LVDd6.7 (3.8-5.7cm)LA (2D)5.7 (1.9-4.0cm)Aortic Root3.9 (2.0-3.7cm) LVDs5.9 (2.5-4.0cm)LA (MM) (1.9-4.0cm)Aortic Cusp Exc2.2 (1.5-2.0cm) EF (%) 25.0 (55-70%)Rt. Atrium6.3 (1.9-4.0cm)Asc. Aorta cm IVSd1.6 (0.7-1.1cm)RV (D) (1.8-2.4cm) PWd1.6 (0.7-1.1cm) Mitral Valve MitralMitral Stenosis E wave1.00m/sMV Mean GR.mmHg A wave0.50m/sMV Peak GR.mmHg E/A ratio2.02D MVAcm2 Aortic Valve Aortic ValveAortic Stenosis V10.50m/Peggy Mean GR.2mmHg V21.00m/Peggy Peak GR.4mmHg LVOT Diameter2.6 (1.8-2.4cm)Doppler AVA2.65cm2 Pulmonic Valve V20.70m/s Tricuspid Valve TR Velocity2.00m/s LEFT VENTRICLE The left ventricle is severely dilated in size. Left ventricular wall thickness is moderately to sev erely increased. Ejection fraction is severely decreased and is estimated at 20%. There is severe g lobal hypokinesis. There is restrictive filling pattern of the left ventricle. E to E prime ratio i s elevated suggestive of high left-sided filling pressure. RIGHT VENTRICLE The right ventricle is severely dilated in size. Right ventricular systolic function is severely dec reased. ATRIA The left atrium is moderately dilated in size. Right atrium is mildly dilated in size. There is no evidence of intra-atrial shunting as confirmed with bubble study. MITRAL VALVE Normal structure and function. There is mild mitral regurgitation. PULMONIC VALVE Likely normal. TRICUSPID VALVE Normal structure and function. There is mild tricuspid regurgitation. PA systolic pressure is not a dequately estimated. AORTIC VALVE Normal structure and function. GREAT VESSELS Aortic root measures 3.9 cm at the sinuses of Valsalva. Proximal ascending aorta isn't visualized. PERICARDIAL EFFUSION There is small circumferential pericardial effusion. IVC is dilated in size and does not collapse no rmally with inspiration. Conclusion Severely dilated left ventricle with severely decreased systolic function. Ejection fraction is estimated at 20% with severe global hypokinesis. Restrictive filling pattern of the left ventricle with evidence of elevated left-sided filling pressu re. Severely dilated right ventricle with severely decreased systolic function. No hemodynamically significant valvular disease. PA systolic pressure is not adequately estimated. Small circumferential pericardial effusion.
--- NOTE | 2024-04-02 17:53 | DVH ---
CTA CHEST INDICATION: eval for pe elevated ddimer TECHNIQUE: Multidetector CTA of the chest was performed of the chest with 100 cc of intravenous contr ast. PULMONARY ANGIOGRAPHY PROTOCOL was utilized using a bolus-tracking technique centered on the darcy n pulmonary artery. Axial, coronal and sagittal multiplanar and MIP reformats were performed. Radiation Dose Information: CT Dose: CTDI volume is 28 mGy. Dose-length product is 10 50 mGy*cm The dose indicators for CT are the volume Computed Tomography (CT) Dose Index (CTDIvol) and the Dose Length Product (DLP), and are measured in units of mGy and mGy-cm, respectively. These indicators are not patient dose, but values generated from the CT scanner acquisition factors. The report includes radiation exposure data for exposures received during this examination. Comparison: CT CT ANGIO CHEST CONTRAST on DOS: 03/20/24 Findings: Pulmonary artery: There is no evidence of a pulmonary arterial filling defect to suggest pulmonary e mbolism. The main pulmonary artery demonstrates normal caliber. Lungs/Pleura: Evaluation of the lungs is limited secondary to respiratory motion. There is small rig ht sided pleural effusion with likely fluid tracking into the right major fissure. There is mild atel ectasis in the posterior right lower lobe. There are again patchy ground-glass opacities in the lungs bilaterally. Heart/Vascular Structures: There is stable moderate cardiomegaly and small pericardial effusion. The thoracic aorta demonstrates normal caliber. Lymph Nodes: There are stable prominent mediastinal lymph nodes, the largest in the AP window measur ing 12 mm in short axis. Musculoskeletal: No acute osseous abnormality. Upper abdomen: Visualized upper abdominal structures appear within normal limits. IMPRESSION: 1. There is no evidence of a pulmonary arterial filling defect to suggest pulmonary embolism. 2. There is small right pleural effusion which likely tracks into the right major fissure. This is n ew from the prior study. There is mild atelectasis in the posterior right lower lobe. Again seen are bilateral patchy ground-glass opacities. 3. Stable moderate cardiomegaly and small pericardial effusion. 4. Stable prominent mediastinal lymph nodes. HS:Y
[2024-04-02 21:34] VITALS: BP 155/97; PULSE 91; RESP 16; TEMP 97.8; O2SAT 98
[2024-04-02] MEDS ORDERED: ATORVASTATIN 20 MG TAB PO SCH (22:00)
--- NOTE | 2024-04-03 12:47 | ECG ---
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
== END 2024-04-02 22:05 | disposition left against medical advice (07) | DRG 133 ==
LOC: ER 07:06 → EDBD 07:06 → TELE 09:15
PROVIDERS: ADMIT Nurse Practitioner Family; ATTEND Nurse Practitioner Family
DX: J96.01 Acute respiratory failure with hypoxia (principal); I50.43 Acute on chronic combined systolic (congestive) and diastolic (congestive) heart failure; I21.A1 Myocardial infarction type 2; J44.1 Chronic obstructive pulmonary disease with (acute) exacerbation; F17.210 Nicotine dependence, cigarettes, uncomplicated; I11.0 Hypertensive heart disease with heart failure; I16.1 Hypertensive emergency; Z20.822 Contact with and (suspected) exposure to COVID-19; F15.10 Other stimulant abuse, uncomplicated; E66.01 Morbid (severe) obesity due to excess calories; Z68.41 Body mass index [BMI] 40.0-44.9, adult; Z86.718 Personal history of other venous thrombosis and embolism; Z88.1 Allergy status to other antibiotic agents; Z91.199 Patient's noncompliance with other medical treatment and regimen due to unspecified reason; Z59.00 Homelessness unspecified
CPT/HCPCS: 36415; 71045; 71275; 80048; 80307; 81001; 83735; 83880; 84443; 84484; 85025; 85379; 85610; 87426; 87804; 93005; 93306; 93970; 99291; 99292; G0378

== ENCOUNTER 2024-04-16 22:32 | Emergency (ER) | payer MEDICAID ==
[~2024-04-16] VITALS: Ht 177.8 cm; Wt 153.3 kg
--- NOTE | 2024-04-16 22:50 | ED.PDOC ---
History of Present Illness HPI Comments 43 year old male presents with chest pain and shortness of breath ongoing intermittently for the past 2 weeks. Patient was seen here April 02 and was supposed to be admitted for 1. Acute on chronic decompensated HFrEF, NYHA class IV, 2. Hypertensive urgency, 3. NSTEMI, likely type II secondary to above, 4. COPD, 5. History of DVT, 6. Amphetamine abuse, 7. Tobacco use, 8. Medical noncompliance, 9. Morbid obesity, however he left against medical advice. He is not taking any medications at home at this time. He has a history of pulmonary embolism. Chief Complaint: Chest Pain Time Seen by MD: 22:42 Allergies: Coded Allergies: Cephalexin (Verified Allergy, Unknown, 03/31/24) Home Meds Active Scripts Dextromethorphan Polistirex (Robitussin 12 Hour Cough) 30 Mg/5 Ml Kristal, 30 MG PO Q6HPRN PRN for 7 Days, #100 ML Prov:JOHN HORNE MD 03/20/24 Penicillin V Potassium (Veetids) 500 Mg Tab, 1 TAB PO BID, #20 TAB Prov:JOHN HORNE MD 03/20/24 Prednisone (Prednisone) 10 Mg Matt, 20 MG PO DAILY for 5 Days, #10 PACK Prov:JOHN HORNE MD 03/20/24 Albuterol Sulfate (VENTOLIN MDI) 90 Mcg Ih, 90 MCG IN Q4HPRN PRN for 10 Days, #1 INH Prov:JOHN HORNE MD 03/20/24 Vital Signs Vital Signs Date Time Temp Pulse Resp B/P (MAP) Pulse Ox O2 Delivery O2 Flow Rate FiO2 04/16/24 23:50 114 04/16/24 23:20 98.4 26 160/113 (129) 93 Physical Exam General: Awake, alert , appears anxious with rapid breathing Skin: Skin in warm, dry and intact. Appropriate color for ethnicity. HEENT: The head is normocephalic and atraumatic. Conjunctivae are clear without exudates or hemorrhage. Sclera is non-icteric. EOM are intact. No signs of nystagmus. Eyelids are normal in appearance without swelling or lesions. Oral mucosa is pink and moist Neck: The neck is supple with normal range of motion. No JVD. Cardiac: Heart rate and rhythm are normal. No murmurs, gallops, or rubs are auscultated. Radial pulses equal Respiratory: Patient is breathing rapidly, Lung sounds are clear in all lobes bilaterally without rales, ronchi, or wheezes. Abdominal: Abdomen is soft, non-tender without distention. Bowel sounds are present and normoactive in all four quadrants. Extremities: Upper and lower extremities are atraumatic in appearance without deformity, bilateral lower extremity edema Neurological: The patient is awake, alert and oriented to person, place, and time with normal speech. Speech is clear. There is no facial asymmetry. Psychiatric: Appears anxious Review of Systems: As stated in HPI Past Medical History PAST MEDICAL HISTORY: CHF, COPD, HTN, IA, PE Past Medical History (Other): DVT, Surgical History: Denies all surgeries Family History Family History: Reviewed,noncontributory to illness Social History Smoker: Cigarettes Alcohol: Denies ETOH Use Drugs: Marijuana, Methamphetamine Lives In: Home Was a procedure done? Was a procedure done?: No EKG EKG : Pulse Rate (adult): 114 Cardiac Rhythm: ST Hypertrophy: LAE Differential Dx Considerations may include: Anemia, electrolyte imbalance, IA, CHF, COPD, amphetamine abuse X-Ray, Labs, Meds, VS Vital Signs Date Time Temp Pulse Resp B/P (MAP) Pulse Ox O2 Delivery O2 Flow Rate FiO2 04/16/24 23:50 114 04/16/24 23:20 98.4 121 26 160/113 (129) 93 04/16/24 23:06 114 04/16/24 22:41 114 Lab Test 04/17/24 00:20 04/16/24 23:05 Range/Units Troponin I High Sensitivity 34 37 </=54 ng/L White Blood Count 10.0 4.4-10.8 10^3/uL Red Blood Count 5.06 4.5-5.90 10^6/uL Hemoglobin 13.5 13.5-17.5 g/dL Hematocrit 41.4 41.0-53.0 % Mean Corpuscular Volume 81.7 80.0-100.0 fL Mean Corpuscular Hemoglobin 26.6 L 28.0-32.0 pg Mean Corpuscular Hemoglobin Concent 32.6 32.0-36.0 g/dL Red Cell Distribution Width 17.5 H 11.8-14.3 % Platelet Count 430 140-450 10^3/uL Mean Platelet Volume 7.3 6.9-10.8 fL Neutrophils (%) (Auto) 66.0 37.0-80.0 % Lymphocytes (%) (Auto) 21.3 10.0-50.0 % Monocytes (%) (Auto) 8.9 0.0-12.0 % Eosinophils (%) (Auto) 3.1 0.0-7.0 % Basophils (%) (Auto) 0.7 0.0-2.0 % Neutrophils # (Auto) 6.6 1.6-8.6 10 ^3/uL Lymphocytes # (Auto) 2.1 0.4-5.4 10 ^3/uL Monocytes # (Auto) 0.9 0-1.3 10 ^3/uL Eosinophils # (Auto) 0.3 0-0.8 10 ^3/uL Basophils # (Auto) 0.1 0-0.2 10 ^3/uL Nucleated Red Blood Cells 0.1 % Sodium Level 139 136-145 mmol/L Potassium Level 4.0 3.5-5.1 mmol/L Chloride Level 107 98-107 mmol/L Carbon Dioxide Level 24 20-31 mmol/L Anion Gap 8 5-15 Blood Urea Nitrogen 20 9-23 mg/dL Creatinine 1.38 H 0.700-1.30 mg/dL Glomerular Filtration Rate Calc 65 >90 mL/min BUN/Creatinine Ratio 14.5 10.0-20.0 Serum Glucose 145 H 74-106 mg/dL Calcium Level 9.6 8.7-10.4 mg/dL Total Bilirubin 0.6 0.2-1.0 mg/dL Aspartate Amino Transferase (AST) 28 13-40 U/L Alanine Aminotransferase (ALT) 22 7-40 U/L Alkaline Phosphatase 196 H 46-116 U/L B-Type Natriuretic Peptide 421.39 0-100 pg/mL Total Protein 7.6 5.7-8.2 g/dL Albumin 4.2 3.2-4.8 g/dL CHEST RADIOGRAPH Indication: cp Technique: Single frontal view of the chest was obtained Comparison: XY CHEST PORTABLE on DOS: 04/02/24, XY CHEST PORTABLE on DOS: 03/31/24, XY CHEST PORTABLE on DOS: 03/20/24. CT of the chest of March 2024 FINDINGS: Patient has cardiomegaly but also apparently has a pericardial effusion according to the CT examination of April 02, 2024 there is mild interstitial p rominence in the study I do not see definite effusions but I suspect is an effusion in the right lung base the right costophrenic angle is blunted. IMPRESSION: 1. Cardiomegaly according to prior CT examination there was a pericardial effusion the patient May benefit from a cardiac echo. 2. There is probable right pleural effusion this study Time of 1ST Reevaluation: 23:04 Reevaluation 1ST: Unchanged Patient Education/Counseling: Diagnosis, Treatment Family Education/Counseling: No Family Present Departure 1 Departure Time of Disposition: 01:13 Impression: Primary Impression: Chest pain Additional Impression: Shortness of breath Disposition: ADMITTED INPATIENT Condition: Stable Comments Patient admitted for further treatment, evaluation and monitoring. Critical Care Note Critical Care Time?: Yes (35 min-critical care time only) Critical care comment: Acute chest pains Stability Stability form required: No Heart Score Heart Score: Heart Score Response (Comments) Value History Moderate Suspicious 1 EKG Repolarization Disturb 1 Age <45 0 Risk Factors >3 or Hx ASHD 2 Troponin Normal limit 0 Total 4 I personally scribed for DEBRA BRICENO MD ([email or web address]) on 04/16/24 at 23:06. Electronically submitted by Kael Carrion ([place]). I personally scribed for DEBRA BRICENO MD ([email or web address]) on 04/16/24 at 23:06. Electronically submitted by Kael Carrion ([place]). I personally scribed for DEBRA BRICENO MD ([email or web address]) on 04/16/24 at 23:43. Electronically submitted by Kael Carrion ([place]). DEBRA BRICENO MD Apr 16, 2024 22:50
[2024-04-16] MEDS: LABETALOL HCL 20 MG/4 ML VL IV ONE (23:00)
--- NOTE | 2024-04-16 23:21 | DVH ---
CHEST RADIOGRAPH Indication: cp Technique: Single frontal view of the chest was obtained Comparison: XY CHEST PORTABLE on DOS: 04/02/24, XY CHEST PORTABLE on DOS: 03/31/24, XY CHEST PORTABLE o n DOS: 03/20/24. CT of the chest of March 2024 FINDINGS: Patient has cardiomegaly but also apparently has a pericardial effusion according to the CT examinati on of April 02, 2024 there is mild interstitial prominence in the study I do not see definite effus ions but I suspect is an effusion in the right lung base the right costophrenic angle is blunted. IMPRESSION: 1. Cardiomegaly according to prior CT examination there was a pericardial effusion the patient May be nefit from a cardiac echo. 2. There is probable right pleural effusion this study
[2024-04-16 23:30] LABS: Basophils # (auto) 0.1 10 ^3/uL (0-0.2); Eosinophils # (auto) 0.3 10 ^3/uL (0-0.8); Monocytes # (auto) 0.9 10 ^3/uL (0-1.3); Nucleated Red Blood Cells % 0.1 %
[2024-04-16 23:32] LABS: Basophils % (auto) 0.7 % (0.0-2.0); Eosinophils % (auto) 3.1 % (0.0-7.0); Hematocrit 41.4 % (41.0-53.0); Hemoglobin 13.5 g/dL (13.5-17.5); Lymphocytes # (auto) 2.1 10 ^3/uL (0.4-5.4); Lymphocytes % (auto) 21.3 % (10.0-50.0); Mean Corpuscular Hemoglobin 26.6 pg (28.0-32.0); Mean Corpuscular Hgb Conc. 32.6 g/dL (32.0-36.0); Mean Corpuscular Volume 81.7 fL (80.0-100.0); Monocytes % (auto) 8.9 % (0.0-12.0); Neutrophils # (auto) 6.6 10 ^3/uL (1.6-8.6); Platelet Count (auto) 430 10^3/uL (140-450); Red Blood Cells 5.06 10^6/uL (4.5-5.90); Red Cell Distribution Width 17.5 % (11.8-14.3)
[2024-04-16 23:45] LABS: Alanine Aminotransferase 22 U/L (7-40); Albumin 4.2 g/dL (3.2-4.8); Anion Gap 8 (5-15); Aspartate Aminotransferase 28 U/L (13-40); BUN/Creatinine Ratio 14.5 (10.0-20.0); Bilirubin, Total 0.6 mg/dL (0.2-1.0); Blood Urea Nitrogen 20 mg/dL (9-23); Calcium 9.6 mg/dL (8.7-10.4); Carbon Dioxide 24 mmol/L (20-31); Chloride 107 mmol/L (98-107); Sodium 139 mmol/L (136-145); Total Protein 7.6 g/dL (5.7-8.2)
[2024-04-16 23:47] LABS: Alkaline Phosphatase 196 U/L (46-116); Glucose 145 mg/dL (74-106)
[2024-04-17] MEDS: NITROGLYCERIN 2% OINT 1GM PKG TD ONE (01:55)
[2024-04-17] MEDS: ALBUTEROL SULF 2.5 MG/0.5ML(0.5%) NEB SOLN NEB ONE (02:09)
[2024-04-17] MEDS: ASPirin 81 mg TAB PO ONE (03:09)
[2024-04-17] MEDS: FUROSEMIDE 40 MG/4 ML VIAL IV ONE (03:14)
[2024-04-17] MEDS: MORPHINE SULFATE INJ 2 MG/ml SYRG IV ONE (03:14)
--- NOTE | 2024-04-17 06:08 | ECG ---
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
[2024-04-17 07:30] VITALS: BP 168/106; PULSE 102; RESP 24; TEMP 98.1; O2SAT 98
--- NOTE | 2024-04-17 08:24 | ECG ---
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
== END 2024-04-17 09:46 | disposition left against medical advice (07) ==
LOC: ER 22:32
DX: R07.89 Other chest pain (principal); R06.02 Shortness of breath; I11.0 Hypertensive heart disease with heart failure; I50.9 Heart failure, unspecified; J44.9 Chronic obstructive pulmonary disease, unspecified; I25.2 Old myocardial infarction; F17.210 Nicotine dependence, cigarettes, uncomplicated; Z86.718 Personal history of other venous thrombosis and embolism; Z86.711 Personal history of pulmonary embolism; Z88.1 Allergy status to other antibiotic agents
CPT/HCPCS: 36415; 71045; 80053; 83880; 84484; 85025; 93005; 94640; 96374; 96375; 99285; J1940; J2270; 99291

== ENCOUNTER 2024-05-14 23:40 | Inpatient (IN) | payer MEDICAID ==
[~2024-05-14] VITALS: Ht 177.8 cm; Wt 137.3 kg
[~2024-05-14 23:40] MED LIST changes: +ALBU108A5 IN; +APIX5TAB4 PO
[2024-05-15] VITALS (10 sets, daily range): BP systolic 131–174; BP diastolic 78–120; PULSE 92–117; RESP 19–32; TEMP 97.7–98.3; O2SAT 91–100
[2024-05-15 00:10] LABS: Base Excess -0.5 mmol/L (-2.0-3.0)
[2024-05-15 00:17] LABS: Basophils # (auto) 0.1 10 ^3/uL (0-0.2); Eosinophils # (auto) 0.1 10 ^3/uL (0-0.8); Monocytes # (auto) 1.8 10 ^3/uL (0-1.3); Nucleated Red Blood Cells % 0.1 %; Platelet Count (auto) 434 10^3/uL (140-450)
[2024-05-15 00:19] LABS: Basophils % (auto) 0.3 % (0.0-2.0); Eosinophils % (auto) 0.7 % (0.0-7.0); Hemoglobin 13.2 g/dL (13.5-17.5); Lymphocytes # (auto) 1.8 10 ^3/uL (0.4-5.4); Lymphocytes % (auto) 11.7 % (10.0-50.0); Mean Corpuscular Hemoglobin 26.2 pg (28.0-32.0); Mean Corpuscular Hgb Conc. 33.1 g/dL (32.0-36.0); Mean Corpuscular Volume 79.3 fL (80.0-100.0); Monocytes % (auto) 11.5 % (0.0-12.0); Neutrophils # (auto) 11.9 10 ^3/uL (1.6-8.6); Neutrophils % (auto) 75.8 % (37.0-80.0); Red Blood Cells 5.05 10^6/uL (4.5-5.90); Red Cell Distribution Width 16.9 % (11.8-14.3); White Blood Cell 15.7 10^3/uL (4.4-10.8)
[2024-05-15 00:21] LABS: INR 1.06 (0.9-1.15); Prothrombin Time 11.2 sec (9.3-11.8)
[2024-05-15 00:22] LABS: Albumin 3.8 g/dL (3.2-4.8); Anion Gap 4 (5-15); BUN/Creatinine Ratio 15.1 (10.0-20.0); Blood Alcohol 3.9 mg/dL (<10); Blood Urea Nitrogen 14 mg/dL (9-23); Calcium 9.1 mg/dL (8.7-10.4); Carbon Dioxide 25 mmol/L (20-31); Chloride 107 mmol/L (98-107); Potassium 4.6 mmol/L (3.5-5.1); Total Protein 7.6 g/dL (5.7-8.2)
[2024-05-15 00:23] LABS: Bilirubin, Total 0.8 mg/dL (0.2-1.0)
[2024-05-15 00:27] LABS: Alanine Aminotransferase 48 U/L (7-40); Alkaline Phosphatase 216 U/L (46-116); Aspartate Aminotransferase 42 U/L (13-40); Glucose 152 mg/dL (74-106); Sodium 136 mmol/L (136-145)
--- NOTE | 2024-05-15 00:30 | ED.PDOC ---
History of Present Illness HPI Comments 43-year-old male came to emergency room by EMS for chest pains. Patient has history of hypertension, CHF, COPD, anxiety, and methamphetamine abuse. Was just discharged with [facility] 2 days go and was diagnosed with pulmonary emboli. Per EMS, patient was found inside his car by [facility] counselor office, initially altered and confused, then stating he has chest pains. Patient has no recollection of how he got inside his car. He claims he could not remember recent events. Denies any recent drug use. Patient also states that he has been coughing up blood recently, dark brown, red that started around noon. Patient is a very poor informant. Blood pressure on scene was 171/101 mmHg with a blood sugar of 156. 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 Allergies: Coded Allergies: Cephalexin (Verified Allergy, Unknown, 03/31/24) Home Meds Active Scripts Dextromethorphan Polistirex (Robitussin 12 Hour Cough) 30 Mg/5 Ml Kristal, 30 MG PO Q6HPRN PRN for 7 Days, #100 ML Prov:JOHN HORNE MD 03/20/24 Penicillin V Potassium (Veetids) 500 Mg Tab, 1 TAB PO BID, #20 TAB Prov:JOHN HORNE MD 03/20/24 Prednisone (Prednisone) 10 Mg Matt, 20 MG PO DAILY for 5 Days, #10 PACK Prov:JOHN HORNE MD 03/20/24 Albuterol Sulfate (VENTOLIN MDI) 90 Mcg Ih, 90 MCG IN Q4HPRN PRN for 10 Days, #1 INH Prov:JOHN HORNE MD 03/20/24 Information Source: Patient, Emergency Med Personnel Mode of Arrival: EMS Severity: Moderate Timing: Hours Review of Systems REVIEW OF SYSTEMS: No fever, no chills, or fatigue HEENT: No sore throat, no earache, no congestion, no neck pain. Cardiac: (+) chest pain. No palpitations. Lungs: No shortness of breath, no cough (+) hemoptysis GI: No nausea, no vomiting, no diarrhea, no constipation, no abdominal pain : No dysuria, frequency, or urgency. No hematuria. Musculoskeletal: No joint pain , no joint swelling, no extremity edema. Skin: No rash, no itching. Neuro: No headache, no dizziness, no weakness Vital Signs Vital Signs Date Time Temp Pulse Resp B/P (MAP) Pulse Ox O2 Delivery O2 Flow Rate FiO2 05/15/24 01:00 97.7 110 22 147/87 (107) 92 97.7 05/15/24 00:15 Room Air* 0 21 Physical Exam General: Awake, alert and oriented. No acute distress. Skin: Skin in warm, dry and intact. Appropriate color for ethnicity. Nailbeds pink with no cyanosis. HEENT: The head is normocephalic and atraumatic. Conjunctivae are clear without exudates or hemorrhage. Sclera is non-icteric. EOM are intact. No signs of nystagmus. Eyelids are normal in appearance without swelling or lesions. Oral mucosa is pink and moist Neck: The neck is supple with normal range of motion. No JVD. Cardiac: Heart rate and rhythm are normal. No murmurs, gallops, or rubs are auscultated. Respiratory: No signs of respiratory distress. Lung sounds are clear in all lobes bilaterally without rales, ronchi, or wheezes. Abdominal: Abdomen is soft, non-tender without distention. Bowel sounds are present and normoactive in all four quadrants. Extremities: Upper and lower extremities are atraumatic in appearance without deformity or edema. Neurological: The patient is awake, alert and oriented to person, place, and time with normal speech. Speech is clear. There is no facial asymmetry. Psychiatric: Appropriate mood and affect. Good judgement and insight. No visual or auditory hallucinations. Past Medical History PAST MEDICAL HISTORY: AFIB, CHF, COPD, HTN, CT, PE Surgical History: Denies all surgeries Family History Family History: Reviewed,noncontributory to illness Social History Smoker: Cigarettes Alcohol: Denies ETOH Use Drugs: Marijuana, Methamphetamine Lives In: Home Was a procedure done? Was a procedure done?: No Differential Dx Considerations may include: Anemia, electrolyte imbalance, CHF, COPD, pneumonia, sepsis, substance abuse X-Ray, Labs, Meds, VS Vital Signs Date Time Temp Pulse Resp B/P (MAP) Pulse Ox O2 Delivery O2 Flow Rate FiO2 05/15/24 01:00 97.7 110 22 147/87 (107) 92 97.7 05/15/24 00:43 113 05/15/24 00:15 Room Air* 0 21 05/14/24 23:49 97.8 120 20 171/101 (124) 96 05/14/24 23:42 116 Lab Test 05/15/24 00:56 05/15/24 00:04 05/14/24 23:55 05/14/24 23:51 Range/Units Troponin I High Sensitivity 27 26 </=54 ng/L Blood Gas Specimen Type Arterial Blood Gas Sample Site Right radial Blood Gas Patient Temperature 37.0 Arterial Blood Date Drawn [id number] Arterial Blood pH 7.495 H 7.350-7.450 Arterial Blood Partial Pressure CO2 28.7 L 35.0-48.0 mmHg Arterial Blood Partial Pressure O2 64.4 L 83.0-108.0 mmHg Arterial Blood HCO3 21.6 21.0-28.0 mmol/L Arterial Blood Oxygen Saturation 94.1 94.0-98.0 % Arterial Blood Base Excess -0.5 -2.0-3.0 mmol/L Arterial Blood Oxyhemoglobin 91.8 L 94.0-98.0 % Arterial Blood Carboxyhemoglobin 1.9 H 0.5-1.5 % Arterial Blood Methemoglobin 0.5 0.0-1.5 % Aurelio Test Modified Blood Gas Total Hemoglobin 13.80 13.5-17.5 g/dL Blood Gas Modality Room air FiO2 % 21.0 Lactic Acid Level 0.9 0.4-2.0 mmol/L White Blood Count 15.7 H 4.4-10.8 10^3/uL Red Blood Count 5.05 4.5-5.90 10^6/uL Hemoglobin 13.2 L 13.5-17.5 g/dL Hematocrit 40.0 L 41.0-53.0 % Mean Corpuscular Volume 79.3 L 80.0-100.0 fL Mean Corpuscular Hemoglobin 26.2 L 28.0-32.0 pg Mean Corpuscular Hemoglobin Concent 33.1 32.0-36.0 g/dL Red Cell Distribution Width 16.9 H 11.8-14.3 % Platelet Count 434 140-450 10^3/uL Mean Platelet Volume 7.1 6.9-10.8 fL Neutrophils (%) (Auto) 75.8 37.0-80.0 % Lymphocytes (%) (Auto) 11.7 10.0-50.0 % Monocytes (%) (Auto) 11.5 0.0-12.0 % Eosinophils (%) (Auto) 0.7 0.0-7.0 % Basophils (%) (Auto) 0.3 0.0-2.0 % Neutrophils # (Auto) 11.9 H 1.6-8.6 10 ^3/uL Lymphocytes # (Auto) 1.8 0.4-5.4 10 ^3/uL Monocytes # (Auto) 1.8 H 0-1.3 10 ^3/uL Eosinophils # (Auto) 0.1 0-0.8 10 ^3/uL Basophils # (Auto) 0.1 0-0.2 10 ^3/uL Nucleated Red Blood Cells 0.1 % Prothrombin Time 11.2 9.3-11.8 sec Prothrombin Time INR 1.06 0.9-1.15 Sodium Level 136 136-145 mmol/L Potassium Level 4.6 3.5-5.1 mmol/L Chloride Level 107 98-107 mmol/L Carbon Dioxide Level 25 20-31 mmol/L Anion Gap 4 L 5-15 Blood Urea Nitrogen 14 9-23 mg/dL Creatinine 0.93 0.700-1.30 mg/dL Glomerular Filtration Rate Calc 104 >90 mL/min BUN/Creatinine Ratio 15.1 10.0-20.0 Serum Glucose 152 H 74-106 mg/dL Calcium Level 9.1 8.7-10.4 mg/dL Magnesium Level 2.0 1.6-2.6 mg/dL Total Bilirubin 0.8 0.2-1.0 mg/dL Aspartate Amino Transferase (AST) 42 H 13-40 U/L Alanine Aminotransferase (ALT) 48 H 7-40 U/L Alkaline Phosphatase 216 H 46-116 U/L B-Type Natriuretic Peptide 276.64 0-100 pg/mL Total Protein 7.6 5.7-8.2 g/dL Albumin 3.8 3.2-4.8 g/dL Plasma/Serum Blood Alcohol 3.9 <10 mg/dL Current Medications Medications (Trade) Dose Ordered Sig/Ahsan Route Start Time Stop Time Status Last Admin Sodium Chloride 1,000 ml @ 1,000 mls/hr Q1H ONCE IV 05/15/24 00:45 05/15/24 01:44 DC 05/15/24 00:57 Time of 1ST Reevaluation: 00:18 Reevaluation 1ST: Unchanged Patient Education/Counseling: Diagnosis, Treatment Family Education/Counseling: No Family Present Departure 1 Departure Time of Disposition: 02:06 Impression: Primary Impression: Chest pain Additional Impressions: Hemoptysis Pneumonia involving right lung Loculated pleural effusion Disposition: ADMITTED INPATIENT Condition: Serious Comments 43-year-old male with extensive past medical history presents to the emergency department with confusion and hemoptysis. Found to have right-sided multifocal pneumonia along with a loculated pleural effusion. Patient is stable, saturating well on room air. Antibiotics initiated in the emergency department. Patient admitted for further treatment, evaluation and monitoring. Extensive evaluation was performed in attempt to identify or rule out: (See differential diagnosis section) The following tests were ordered, and results were reviewed by me: (See diagno stic results section) The following test were independently interpreted by me: EKG I reviewed and agreed with the following test results read by other providers: N/A I reviewed the following notes from the pt's past medical encounters: Encounter April 2024 for dyspnea at this facility. At that time patient presented to the emergency department with dyspnea after presentation in the previous month for similar symptoms. Patient left against medical advice in March 2024, patient also eloped in April of 2024. PMH includes 1. Acute on chronic decompensated HFrEF, NYHA class IV, 2. Hypertensive urgency, 3. NSTEMI, likely type II secondary to above, 4. COPD, 5. History of DVT, 6. Amphetamine abuse, 7. Tobacco use, 8. Medical noncompliance, 9. Morbid obesity Additional information was gathered from interviewing the following independent historians: EMS personnel Discussion of management or test interpretation with external physician/other qualified health health and social care teacher: N/A Addressed an acute or chronic illness that poses a threat to life or bodily function: Pneumonia, dyspnea, pleural effusion Decision regarding hospitalization or escalation of hospital level of care: Risk and benefits of admission for further treatment of patient's condition was considered. Due to patient's current clinical condition, high risk of decline and poor outcome if discharged and need for further inpatient management and monitoring, patient will be admitted to the hospital. Discussed this with the patient who agrees. Critical Care Note Critical Care Time?: No Stability Stability form required: No Heart Score Heart Score: Heart Score Response (Comments) Value History Moderate Suspicious 1 EKG Repolarization Disturb 1 Age <45 0 Risk Factors >3 or Hx ASHD 2 Troponin Normal limit 0 Total 4 I personally scribed for DEBRA BRICENO MD ([email or web address]) on 05/15/24 at 00:30. Electronically submitted by Kael Carrion ([employer]). I personally scribed for DEBRA BRICENO MD ([email or web address]) on 05/15/24 at 00:32. Electronically submitted by Kael Carrion ([employer]). DEBRA BRICENO MD May 15, 2024 00:30
[2024-05-15] MEDS: SODIUM CHLORIDE 0.9% 1,000 ML IV ONE ×2 (00:57→02:18)
[2024-05-15] MEDS: IOHEXOL 350 MG/ML 100ML IJ ONE (01:17)
--- NOTE | 2024-05-15 01:32 | DVH ---
CT HEAD WITHOUT CONTRAST INDICATION: Altered mental status, on anticoagulation COMPARISON: None TECHNIQUE: CT of the head without intravenous contrast. RADIATION DOSE: CTDIvol: mGy, DLP: mGy*cm FINDINGS: There is no evidence of intracranial hemorrhage, infarct, extra-axial collection, mass effect, midli ne shift, herniation or hydrocephalus. The ventricles, sulci and cisterns are normal. The lainez-whit e differentiation is normal. Visualized paranasal sinuses and mastoid air cells are clear. Soft tis sues and osseous structures are unremarkable. IMPRESSION: No intracranial abnormality identified.
--- NOTE | 2024-05-15 01:41 | DVH ---
CTA Chest with intravenous contrast INDICATION: Chest pain, cough, hemoptysis, PE COMPARISON: CT CT ANGIO CHEST CONTRAST on DOS: 04/02/24, CT CT ANGIO CHEST CONTRAST on DOS: 03/20/24 TECHNIQUE: Multidetector spiral CTA of the chest was performed of the chest with intravenous contrast . PULMONARY ANGIOGRAPHY PROTOCOL was utilized using a bolus-tracking technique centered on the main p ulmonary artery. Axial, coronal and sagittal multiplanar and MIP reformats were performed. Radiation Dose : 1. Chest: CTDI volume is 26 mGy. Dose-length product is 2240 mGy*cm The dose indicators for CT are the volume Computed Tomography (CT) Dose Index (CTDIvol) and the Dose Length Product (DLP), and are measured in units of mGy and mGy-cm, respectively. These indicators are not patient dose, but values generated from the CT scanner acquisition factors. The report includes radiation exposure data for exposures received during this examination. Findings: Pulmonary artery: No large central or large segmental pulmonary embolism. Lower neck: Normal thyroid. Lungs: Multifocal right-sided consolidations may reflect pneumonia or aspiration Heart/Vascular Structures: Cardiomegaly with trace pericardial fluid Lymph Nodes: Mediastinal lymphadenopathy, likely reactive. Pleura: Large right pleural effusion which is loculated superiorly and laterally Musculoskeletal: No acute osseous abnormality. Soft tissues: Normal. Upper abdomen: Limited portions of the upper abdomen are unremarkable. IMPRESSION: 1. No pulmonary embolism. 2. Multifocal pneumonia throughout the right lung. 3. Large right pleural effusion which is loculated superiorly and laterally 4. Cardiomegaly with trace pericardial fluid
[2024-05-15] MEDS: PIPERACILLIN-TAZOB 3.375GM 100 ML IV ONE (02:18)
[2024-05-15] MEDS ORDERED: VANCOMYCIN PER PHARMACY 0 MG IV SCH (03:00)
[2024-05-15] MEDS ORDERED: DOCUSATE SOD 100 MG CAP PO PRN (03:00)
[2024-05-15] MEDS ORDERED: ACETAMINOPHEN 325 MG TAB PO PRN (03:00)
[2024-05-15] MEDS: VANCOMYCIN 1GM/250ML KIT 250 ML IV ONE (03:23)
[2024-05-15] MEDS: IPRATROPIUM BROM 0.5 MG/2.5ML INH SOL NEB PRN (03:33)
[2024-05-15] MEDS: ALBUTEROL SULF 2.5 MG/0.5ML(0.5%) NEB SOLN NEB PRN (03:33)
[2024-05-15] MEDS: hydrALAZINE HCL 20 MG/ML VL IV PRN (03:39)
[2024-05-15] MEDS: FUROSEMIDE 20 MG/2 ML VIAL IV ONE (03:40)
[2024-05-15] MEDS: ALBUTEROL SULF 2.5 MG/0.5ML(0.5%) NEB SOLN ONE (03:40)
[2024-05-15] MEDS: IPRATROPIUM BROM 0.5 MG/2.5ML INH SOL ONE (03:40)
[2024-05-15 04:00] LABS: Urine Bacteria None Seen /hpf (None Seen)
[2024-05-15 04:08] LABS: Urine Blood Negative /uL (Negative); Urine Clarity Clear (Clear); Urine Color Yellow (Yellow); Urine Protein, UAD TRACE (Negative); Urine Squamous Epithelial Cell None Seen /hpf (<5); Urine Urobilinogen Normal (Negative)
[2024-05-15 04:21] LABS: Cannabinoid Screen, Urine Neg (NEGATIVE)
[2024-05-15 04:57] LABS: Amphetamine Screen, Urine Pos (NEGATIVE); Barbiturate Scree,Urine Neg (NEGATIVE); Benzodiazephine Screen, Urine Neg (NEGATIVE); Cocaine Screen, Urine Neg (NEGATIVE); Opiate Scree,Urine Neg (NEGATIVE); Phencyclidine Screen, Urine Neg (NEGATIVE)
[2024-05-15] MEDS ORDERED: NITROGLYCERIN 0.4 MG SL TAB SL PRN (05:15)
--- NOTE | 2024-05-15 05:31 | DVHHP2 ---
History of Present Illness Reason for Visit: Chest pain History of Present Illness The patient is a 43-year-old male with past medical history of AFib, anxiety, CHF, COPD, hypertension, WI, and PE who presented to [facility] ED with complaint of chest pain. Patient reports symptoms progressively get worse with shortness of breaths, altered, confusion state, getting worse that prompted this visit. Patient was seen and evaluated in the ED, laboratory data shows WBC 15.7, platelets 434, sodium 136, potassium 4.6, BUN 14, creatinine 0.93, glucose 152, AST 42, ALT 48, troponin 27, BNP 276.64, blood pressure 171/101 trending down to 147/87, heart rate 1 one 0, temperature 97.7 F, O2 saturation 92% on oxygen. CT Angiography revealing multifocal pneumonia throughout the right lung, large right pleural effusion which is loculated superiorly and laterally, cardiomegaly with trace pericardial fluid, no pulmonary embolism. Patient was given breathing treatment, started on IV antibiotic regimen vancomycin, please see medication orders section in the computer. On my assessment, patient denied chest pain, no headache, no dizziness, no diaphoresis, currently on oxygen, no nausea, no vomiting, no fever, no chills. Patient was admitted for further evaluation and medical management. Past Medical History Anxiety, AFIB, CHF, COPD, HTN, WI, PE Past Surgical History Denies all surgeries Family History Reviewed, noncontributory to the management of this case. Past Social History Patient lives at home, smokes cigarettes, denies alcohol use, uses marijuana and methamphetamine. Review of Systems Constitutional: Yes: Weakness; No: Fever, Chills, Sweats, Malaise, Other Eyes: No: Pain, Vision change, Conjunctivae inflammation, Eyelid inflammation, Other, Redness ENT: No: Ear pain, Ear discharge, Nose pain, Nose discharge, Nose congestion, Mouth pain, Mouth swelling, Throat pain, Throat swelling, Other Respiratory: Shortness of breath, SOB with excertion, Other (SOB at rest); No: Cough, Dry, Wheezing, Hemoptysis, Pleuritic Pain, Sputum, Wheezing Cardiovascular: Chest Pain; No: Palpitations, Orthopnea, Paroxysmal Noc. Dyspnea, Edema, Lt Headedness, Other Gastrointestinal: No: Nausea, Vomiting, Abdominal Pain, Diarrhea, Constipation, Melena, Hematochezia, Other Genitourinary: No Dysuria, No Frequency, No Incontinence, No Hematuria, No Retention, No Other Musculoskeletal: No: other, neck pain, shoulder pain, arm pain, back pain, hand pain, leg pain, foot pain Skin: No: Rash, Lesions, Jaundice, Bruising, Other Neurological: No: Weakness, Numbness, Incoordination, Change in speech, Confusion, Seizures, Other Allergies: Coded Allergies: Cephalexin (Verified Allergy, Unknown, 03/31/24) Medications Current Medications Medications Dose Ordered Sig/Ahsan Route Start Time Stop Time Status Last Admin Dose Admin Vancomycin HCl 0 ml @ 0 mls/hr UD IV 05/15/24 03:00 UNV Azithromycin 250 ml @ 125 mls/hr DAILY IV 05/15/24 10:00 Aspirin 81 mg DAILY PO 05/15/24 10:00 Albuterol 2.5 mg Q4HPRN PRN NEB 05/15/24 03:00 05/15/24 03:33 2.5 MG Ipratropium [place] 0.5 mg Q4HPRN PRN NEB 05/15/24 03:00 05/15/24 03:33 0.5 MG Furosemide 20 mg DAILY IV 05/15/24 10:00 Sodium Chloride 10 ml Q8HR IV 05/15/24 06:00 Acetaminophen/ Hydrocodone Bitart 1 tab Q4HP PRN PO 05/15/24 03:00 Ondansetron HCl 4 mg Q4HP PRN IV 05/15/24 03:00 Docusate Sodium 100 mg BIDPRN PRN PO 05/15/24 03:00 Acetaminophen 650 mg Q6HP PRN PO 05/15/24 03:00 Morphine Sulfate 2 mg Q4HPRN PRN IV 05/15/24 03:00 Hydralazine HCl 10 mg Q6HP PRN IV 05/15/24 03:30 05/15/24 03:39 10 MG Carvedilol 3.125 mg Q12HR PO 05/15/24 10:00 Exam Vital Signs Vital Signs Date Time Temp Pulse Resp B/P (MAP) Pulse Ox O2 Delivery O2 Flow Rate FiO2 05/15/24 03:45 97.7 117 22 174/120 91 21 97.7 05/15/24 03:33 Room Air* 0 General Appearance: Alert, Oriented X3, Cooperative, No acute distress HEENT: Atraumatic, PERRLA, EOMI, Mucous membr. moist/pink Respiratory: Normal air movement, Other (Diminished breath sounds) Cardiovascular: Regular rate, Normal S1, Normal S2, No murmurs Abdominal: Normal bowel sounds, Soft, No tenderness, No hepatospenomegaly, No masses Extremities: No clubbing, No cyanosis, No edema, Normal pulses, No tenderness/swelling Skin: No rashes, No breakdown, No significant lesion Neuro: Normal speech, Normal tone, Sensation intact, Cranial nerves 3-12 NL, Reflexes 2+, Other (Generalized weakness) Psych/Mental Status: Mental status NL, Mood NL Labs/Xrays Labs Test 05/15/24 03:30 05/15/24 02:47 05/15/24 00:04 05/14/24 23:55 Range/Units Urine Color Yellow Yellow Urine Clarity Clear Clear Urine pH 6.0 5.0-9.0 Urine Specific [place] 1.030 1.001-1.035 Urine Protein Trace H Negative Urine Ketones Negative Negative Urine Blood Negative Negative /uL Urine Nitrite Negative Negative Urine Bilirubin Negative Negative Urine Urobilinogen Normal Negative mg/dL Urine Leukocyte Esterase Negative Negative /uL Urine RBC 1 0 - 3 /hpf Urine Microscopic WBC 0-3 /HPF Urine Squamous Epithelial Cells None seen <5 /hpf Urine Bacteria None seen None Seen /hpf Urine Glucose Normal Normal mg/dL Urine Opiates Screen Neg NEGATIVE Urine Fentanyl Screen Neg NEGATIVE Urine Barbiturates Screen Neg NEGATIVE Urine Phencyclidine Screen Neg NEGATIVE Urine Amphetamines Screen Pos NEGATIVE Urine Benzodiazepines Screen Neg NEGATIVE Urine Cocaine Screen Neg NEGATIVE Urine Cannabinoids Screen Neg NEGATIVE Troponin I High Sensitivity 24 </=54 ng/L Blood Gas Specimen Type Arterial Blood Gas Sample Site Right radial Blood Gas Patient Temperature 37.0 Arterial Blood Date Drawn [id number] Arterial Blood pH 7.495 H 7.350-7.450 Arterial Blood Partial Pressure CO2 28.7 L 35.0-48.0 mmHg Arterial Blood Partial Pressure O2 64.4 L 83.0-108.0 mmHg Arterial Blood HCO3 21.6 21.0-28.0 mmol/L Arterial Blood Oxygen Saturation 94.1 94.0-98.0 % Arterial Blood Base Excess -0.5 -2.0-3.0 mmol/L Arterial Blood Oxyhemoglobin 91.8 L 94.0-98.0 % Arterial Blood Carboxyhemoglobin 1.9 H 0.5-1.5 % Arterial Blood Methemoglobin 0.5 0.0-1.5 % Aurelio Test Modified Blood Gas Total Hemoglobin 13.80 13.5-17.5 g/dL Blood Gas Modality Room air FiO2 % 21.0 Lactic Acid Level 0.9 0.4-2.0 mmol/L Test 05/14/24 23:51 Range/Units White Blood Count 15.7 H 4.4-10.8 10^3/uL Red Blood Count 5.05 4.5-5.90 10^6/uL Hemoglobin 13.2 L 13.5-17.5 g/dL Hematocrit 40.0 L 41.0-53.0 % Mean Corpuscular Volume 79.3 L 80.0-100.0 fL Mean Corpuscular Hemoglobin 26.2 L 28.0-32.0 pg Mean Corpuscular Hemoglobin Concent 33.1 32.0-36.0 g/dL Red Cell Distribution Width 16.9 H 11.8-14.3 % Platelet Count 434 140-450 10^3/uL Mean Platelet Volume 7.1 6.9-10.8 fL Neutrophils (%) (Auto) 75.8 37.0-80.0 % Lymphocytes (%) (Auto) 11.7 10.0-50.0 % Monocytes (%) (Auto) 11.5 0.0-12.0 % Eosinophils (%) (Auto) 0.7 0.0-7.0 % Basophils (%) (Auto) 0.3 0.0-2.0 % Neutrophils # (Auto) 11.9 H 1.6-8.6 10 ^3/uL Lymphocytes # (Auto) 1.8 0.4-5.4 10 ^3/uL Monocytes # (Auto) 1.8 H 0-1.3 10 ^3/uL Eosinophils # (Auto) 0.1 0-0.8 10 ^3/uL Basophils # (Auto) 0.1 0-0.2 10 ^3/uL Nucleated Red Blood Cells 0.1 % Prothrombin Time 11.2 9.3-11.8 sec Prothrombin Time INR 1.06 0.9-1.15 Sodium Level 136 136-145 mmol/L Potassium Level 4.6 3.5-5.1 mmol/L Chloride Level 107 98-107 mmol/L Carbon Dioxide Level 25 20-31 mmol/L Anion Gap 4 L 5-15 Blood Urea Nitrogen 14 9-23 mg/dL Creatinine 0.93 0.700-1.30 mg/dL Glomerular Filtration Rate Calc 104 >90 mL/min BUN/Creatinine Ratio 15.1 10.0-20.0 Serum Glucose 152 H 74-106 mg/dL Calcium Level 9.1 8.7-10.4 mg/dL Magnesium Level 2.0 1.6-2.6 mg/dL Total Bilirubin 0.8 0.2-1.0 mg/dL Aspartate Amino Transferase (AST) 42 H 13-40 U/L Alanine Aminotransferase (ALT) 48 H 7-40 U/L Alkaline Phosphatase 216 H 46-116 U/L B-Type Natriuretic Peptide 276.64 0-100 pg/mL Total Protein 7.6 5.7-8.2 g/dL Albumin 3.8 3.2-4.8 g/dL Plasma/Serum Blood Alcohol 3.9 <10 mg/dL PATIENT: ANA HERNANDEZT: [id number] UNIT: [id number] : 1980 LOC: ER ROOM / BED: / AGE / SEX: 43 / M ADM STATUS: REG ER SERVICE 1840 ORDERING PHYSICIAN: DEBRA BRICENO MD PROCEDURE(s): CTACH - CT ANGIO CHEST CONTRAST REASON: Chest pain, cough, hemoptysis, PE ORDER NUMBER(s): [id number], ACCESSION NUMBER(s): [id number] CTA Chest with intravenous contrast INDICATION: Chest pain, cough, hemoptysis, PE COMPARISON: CT CT ANGIO CHEST CONTRAST on DOS: 04/02/24, CT CT ANGIO CHEST CONTRAST on DOS: 03/20/24 TECHNIQUE: Multidetector spiral CTA of the chest was performed of the chest with intravenous contrast. PULMONARY ANGIOGRAPHY PROTOCOL was utilized using a bolus- tracking technique centered on the main pulmonary artery. Axial, coronal and sagittal multiplanar and MIP reformats were performed. Radiation Dose: 1. Chest: CTDI volume is 26 mGy. Dose-length product is 2240 mGy*cm The dose indicators for CT are the volume Computed Tomography (CT) Dose Index (CTDIvol) and the Dose Length Product (DLP), and are measured in units of mGy and mGy-cm, respectively. These indicators are not patient dose, but values generated from the CT scanner acquisition factors. The report includes radiation exposure data for exposures received during this examination. Findings: Pulmonary artery: No large central or large segmental pulmonary embolism. Lower neck: Normal thyroid. Lungs: Multifocal right-sided consolidations may reflect pneumonia or aspiration Heart/Vascular Structures: Cardiomegaly with trace pericardial fluid Lymph Nodes: Mediastinal lymphadenopathy, likely reactive. Pleura: Large right pleural effusion which is loculated superiorly and laterally Musculoskeletal: No acute osseous abnormality. Soft tissues: Normal. Upper abdomen: Limited portions of the upper abdomen are unremarkable. IMPRESSION: 1. No pulmonary embolism. 2. Multifocal pneumonia throughout the right lung. 3. Large right pleural effusion which is loculated superiorly and laterally 4. Cardiomegaly with trace pericardial fluid ORDERING PHYSICIAN: DEBRA BRICENO MD PROCEDURE(s): HWOCT - HEAD WITHOUT CONTRAST REASON: Altered mental status, on anticoagulation ORDER NUMBER(s): [id number], ACCESSION NUMBER(s): [id number] CT HEAD WITHOUT CONTRAST INDICATION: Altered mental status, on anticoagulation COMPARISON: None TECHNIQUE: CT of the head without intravenous contrast. RADIATION DOSE: CTDIvol: mGy, DLP: mGy*cm FINDINGS: There is no evidence of intracranial hemorrhage, infarct, extra-axial collection, mass effect, midline shift, herniation or hydrocephalus. The ventricles, sulci and cisterns are normal. The lainez-white differentiation is normal. Visualized paranasal sinuses and mastoid air cells are clear. Soft tissues and osseous structures are unremarkable. IMPRESSION: No intracranial abnormality identified. Assessment/Plan Assessment/Plan Chest pain Hemoptysis Generalized weakness Pneumonia involving right lung Loculated pleural effusion Acute on chronic CHF exacerbation Plan 1. Admit to telemetry unit 2. Breathing treatment 3. Pain control management 4. IV antibiotic management 5. Management of fluids and electrolytes 6. Consultation for cardiology/pulmonology 7. Diagnostic test CT Angiography 8. DVT prophylaxis-on aspirin 9. Repeat labs CBC, CMP in a.m. 10. Home medication reviewed and reconciled 11. Continue with current medical management 12. Treatment plan discussed with patient and RN. Patient verbalized understanding. Plan discussed with: Patient, Other (RN) My Orders Orders - KORY VARGHESE DNP Procedure Category Date Status Time Blood Culture GARRETT 05/15/24 Logged 02:57 Complete Blood Count LAB 05/15/24 Logged 04:00 Comprehensive LAB 05/15/24 Logged Metabolic Panel 04:00 Vancomycin Per PHA 05/15/24 Pending Pharmacy 03:00 Azithromycin 500mg/ PHA 05/15/24 In Process 250ml (Zithromax 50 10:00 Aspirin Tablet PHA 05/15/24 In Process 10:00 Albuterol Medneb PHA 05/15/24 In Process (Ventolin Medneb) 03:00 Ipratropium Medneb PHA 05/15/24 In Process (Atrovent Medneb) 03:00 Furosemide Injection PHA 05/15/24 In Process (Lasix Injection) 10:00 Hemoglobin A1c LAB 05/15/24 Logged 02:57 Allergies HERBERTH 05/15/24 In Process 02:57 Code Status CODE 05/15/24 Transmitted 02:57 Sodium Chloride Lock PHA 05/15/24 In Process (Saline Lock Ns) 06:00 Oxygen Per Hour RT 05/15/24 Transmitted 02:57 Hydrocodone-Acet PHA 05/15/24 In Process 5/325mg Tab ([place] 03:00 Ondansetron Hcl PHA 05/15/24 In Process (Zofran) 03:00 Docusate Sodium PHA 05/15/24 In Process Capsule (Colace 03:00 Complete Blood Count LAB 05/16/24 Verified 04:00 Comprehensive LAB 05/16/24 Verified Metabolic Panel 04:00 Cardiac DIET 05/15/24 Transmitted Diet-2gna,Lofat,Lochol Breakfast Echo 2d Mode Cardiac US 05/15/24 Logged DOP 02:57 Condition: Serious HERBERTH 05/15/24 In Process 02:57 Acetaminophen Tablet PHA 05/15/24 In Process (Tylenol Tablet) 03:00 Bedrest With Bathroom HERBERTH 05/15/24 In Process Privileg 02:57 Morphine Sulfate PHA 05/15/24 In Process Injection 03:00 Sequential HERBERTH 05/15/24 In Process Compression Device Hydralazine Injection PHA 05/15/24 In Process (Apresoline Inject 03:30 Carvedilol Tablet PHA 05/15/24 In Process (Coreg Tablet) 10:00 Admit ADMIT 05/15/24 Verified 05:05 Nitroglycerin PHA 05/15/24 Verified Sublingual (Ntrostat 05:15 Morphine Sulfate PHA 05/15/24 Verified Injection 05:15 Notify Of Changes BANNER 05/15/24 Verified From Base 05:05 Security Systems Installer For BANNER 05/15/24 Verified 24 Hours 05:05 Emergency Dysrhythmia BANNER 05/15/24 Verified Protocol 05:05 Rhythm Strips Once BANNER 05/15/24 Verified Every Shift 05:05 Oxygen By Nasal RT 05/15/24 Verified Cannula 05:05 Problem List: (1) Chest pain (2) Pneumonia involving right lung (3) Loculated pleural effusion (4) COPD with acute exacerbation (5) Hemoptysis (6) Acute exacerbation of chronic heart failure Date of Service: May 15, 2024 Billing Provider: KORY VARGHESE DNP Common Visit Codes: 74242-APPLZER INP/OBS CARE (HIGH) KORY VARGHESE DNP May 15, 2024 05:31
[2024-05-15] MEDS: methylPREDNISolone SOD SUCC 125 MG/2 ML VL IV ONE (05:37)
[2024-05-15] MEDS: SODIUM CHLOR 0.9% PF (SALINE LOCK) 10ML VIAL/SYR IV SCH (05:38)
[2024-05-15 05:40] LABS: Basophils # (auto) 0.1 10 ^3/uL (0-0.2); Eosinophils # (auto) 0.1 10 ^3/uL (0-0.8); Eosinophils % (auto) 0.9 % (0.0-7.0); Hemoglobin 13.3 g/dL (13.5-17.5); Monocytes # (auto) 1.8 10 ^3/uL (0-1.3)
[2024-05-15 05:42] LABS: Basophils % (auto) 0.9 % (0.0-2.0); Hematocrit 39.7 % (41.0-53.0); Lymphocytes # (auto) 1.8 10 ^3/uL (0.4-5.4); Lymphocytes % (auto) 12.8 % (10.0-50.0); Mean Corpuscular Hemoglobin 26.5 pg (28.0-32.0); Mean Corpuscular Hgb Conc. 33.7 g/dL (32.0-36.0); Mean Corpuscular Volume 78.9 fL (80.0-100.0); Monocytes % (auto) 12.5 % (0.0-12.0); Neutrophils # (auto) 10.4 10 ^3/uL (1.6-8.6); Neutrophils % (auto) 72.9 % (37.0-80.0); Platelet Count (auto) 416 10^3/uL (140-450); Red Blood Cells 5.03 10^6/uL (4.5-5.90); Red Cell Distribution Width 17.4 % (11.8-14.3); White Blood Cell 14.3 10^3/uL (4.4-10.8)
[2024-05-15 05:56] LABS: Albumin 3.8 g/dL (3.2-4.8); Anion Gap 7 (5-15); Aspartate Aminotransferase 37 U/L (13-40); Blood Urea Nitrogen 12 mg/dL (9-23); Carbon Dioxide 22 mmol/L (20-31); Chloride 105 mmol/L (98-107); Potassium 3.8 mmol/L (3.5-5.1); Total Protein 7.6 g/dL (5.7-8.2)
[2024-05-15 05:57] LABS: Bilirubin, Total 1.2 mg/dL (0.2-1.0)
[2024-05-15 06:20] LABS: Alanine Aminotransferase 46 U/L (7-40); Alkaline Phosphatase 206 U/L (46-116); Glucose 158 mg/dL (74-106); Sodium 134 mmol/L (136-145)
[2024-05-15] MEDS: HYDROcodone-ACET 5/325MG TAB PO PRN (06:29)
--- NOTE | 2024-05-15 07:03 | ECG ---
[facility] Test Date: 2024-05-15 Test Time: 00:43:13 Pat Name: RYAN HERNANDEZ Department: er Room: 0222T Gender: M Chha: : 1980 Requested By: DEBRA BRICENO Order Number: [id number] Reading MD: Christo Moura Measurements Intervals [place] Rate: 113 P: 54 CA: 162 QRS: 123 QRSD: 120 T: 18 QT: 346 QTc: 475 Interpretive Statements Sinus tachycardia IVCD, consider atypical RBBB ST elev, probable normal early repol pattern Electronically Signed On 05-16-2024 18:03:33 PST by Christo Moura Please click the below link to view image of tracing.
--- NOTE | 2024-05-15 07:11 | ECG ---
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
[2024-05-15] MEDS: VANCOMYCIN 1.25GM/250ML 250 ML IV ONE (11:16)
[2024-05-15] MEDS: AZITHROMYCIN 500MG/ 250ML 250 ML IV SCH (11:18)
[2024-05-15] MEDS: ASPirin 81 mg TAB PO SCH (11:19)
[2024-05-15] MEDS: FUROSEMIDE 20 MG/2 ML VIAL IV SCH ×2 (11:25→18:52)
[2024-05-15] MEDS: FAMOTIDINE (10MG/ML) 2ML VL IV SCH (11:25)
[2024-05-15] MEDS: CARVEDILOL 3.125 MG TAB PO SCH (11:26)
--- NOTE | 2024-05-15 14:20 | DVHINCON2 ---
Date Seen: May 15, 2024 Referring Physician MICHELLE Spence Reason for Consultation Chest pain History of Present Illness This is a 43-year-old male patient who presents to the emergency room with chief complaint of chest pain, cough, and hemoptysis. The patient reports the chest pain began three days ago. He describes the pain as provoked by coughing, intermittent, sharp in nature, right-sided and nonradiating. Patient denies any associated symptoms. Pain is reproducible upon palpation. Initial twelve lead electrocardiogram reveals sinus tachycardia without any significant ST segment changes. Initial troponin level of 26ng/L with flat trend thereafter. Initial BNP level of 276.64pg/mL. Significant past medical history includes congestive heart failure, hypertension, previous DVT to lower extremity (patient unsure which leg), COPD, Conway's palsy, methamphetamine abuse, tobacco use, and morbid obesity. The patient reports he was recently discharged from [facility] and diagnosed with a pulmonary embolism for which he is on Eliquis now. He does not follow up with a social work program coordinator in the outpatient setting. Past Medical History Past medical history reviewed. No other significant than mentioned above. Past Surgical History Denies all previous surgeries Family History Family history reviewed. Social History Patient has a 13 pack-year history, reports recently quitting tobacco approximately week ago Patient denies any drug use, toxicology report positive for amphetamines Denies any alcohol use Allergies: Coded Allergies: Cephalexin (Verified Allergy, Unknown, 03/31/24) Home Meds Active Scripts Dextromethorphan Polistirex (Robitussin 12 Hour Cough) 30 Mg/5 Ml Kristal, 30 MG PO Q6HPRN PRN for 7 Days, #100 ML Prov:JOHN HORNE MD 03/20/24 Penicillin V Potassium (Veetids) 500 Mg Tab, 1 TAB PO BID, #20 TAB Prov:JOHN HORNE MD 03/20/24 Prednisone (Prednisone) 10 Mg Matt, 20 MG PO DAILY for 5 Days, #10 PACK Prov:JOHN HORNE MD 03/20/24 Albuterol Sulfate (VENTOLIN MDI) 90 Mcg Ih, 90 MCG IN Q4HPRN PRN for 10 Days, #1 INH Prov:JOHN HORNE MD 03/20/24 Reported Medications Metoprolol Succinate (Metoprolol Succinate Er) 25 Mg Tab, 1 TAB PO DAILY, #30 TAB 5 Refills 05/15/24 Furosemide (Furosemide) 40 Mg Tab, 40 MG PO DAILY for 30 Days 05/15/24 Losartan Potassium (Losartan Potassium) 100 Mg Tab, 100 MG PO DAILY for 30 Days, MG 05/15/24 Pantoprazole Sodium (PANTOPRAZOLE SODIUM) 40 Mg Inj, 40 MG PO DAILY, INJ 05/15/24 Apixaban Base (ELIQUIS) 5 Mg Tab, 5 MG PO BID, TAB 05/15/24 Home Meds Home medications reviewed. Current Medications Current Medications Medications (Trade) Dose Ordered Sig/Ahsan Route PRN Reason Start Time Stop Time Status Last Admin Vancomycin HCl 0 ml @ 0 mls/hr UD IV 05/15/24 03:00 Azithromycin 250 ml @ 125 mls/hr DAILY IV 05/15/24 10:00 05/15/24 11:18 Aspirin 81 mg DAILY PO 05/15/24 10:00 05/15/24 11:19 Albuterol (Ventolin Medneb) 2.5 mg Q4HPRN PRN NEB SHORTNESS OF BREATH 05/15/24 03:00 05/15/24 03:33 Ipratropium [place] (Atrovent Medneb) 0.5 mg Q4HPRN PRN NEB SHORTNESS OF BREATH 05/15/24 03:00 05/15/24 03:33 Furosemide (Lasix Injection) 20 mg DAILY IV 05/15/24 10:00 05/15/24 11:25 Sodium Chloride (Saline Lock Ns) 10 ml Q8HR IV 05/15/24 06:00 05/15/24 05:38 Acetaminophen/ Hydrocodone Bitart ([place] 5/325MG Tab) 1 tab Q4HP PRN PO MODERATE PAIN (4-6 PAIN SCALE) 05/15/24 03:00 05/15/24 06:29 Ondansetron HCl (Zofran) 4 mg Q4HP PRN IV NAUSEA / VOMITING 05/15/24 03:00 Docusate Sodium (Colace Capsule) 100 mg BIDPRN PRN PO FOR CONSTIPATION 05/15/24 03:00 Acetaminophen (Tylenol Tablet) 650 mg Q6HP PRN PO PAIN SCALE 1-3 OR TEMP>100.4 05/15/24 03:00 Morphine Sulfate 2 mg Q4HPRN PRN IV SEVERE PAIN (7-10 PAIN SCALE) 05/15/24 03:00 Hydralazine HCl (Apresoline Injection) 10 mg Q6HP PRN IV SBP>150 05/15/24 03:30 05/15/24 03:39 Carvedilol (Coreg Tablet) 3.125 mg Q12HR PO 05/15/24 10:00 05/15/24 11:26 Nitroglycerin (Ntrostat Sublingual) 0.4 mg Q5MINP PRN SL FOR CHEST PAIN 05/15/24 05:15 Morphine Sulfate 2 mg Q30M PRN IV FOR CHEST PAIN 05/15/24 05:15 Methylprednisolone Sodium Succinate (Solu Medrol) 40 mg Q8HR IV 05/15/24 14:00 Famotidine (Pepcid Injection) 20 mg Q12HR IV 05/15/24 10:00 05/15/24 11:25 Vancomycin HCl 250 ml @ 200 mls/hr Q8H IV 05/15/24 18:00 Review of Systems Constitutional: No symptom reported Ears, Nose, & Throat: No symptom reported Eyes: No symptom reported Neurological: No symptoms reported Pulmonary/Respiratory: No symptoms reported Cardiovascular: Chest pain Gastrointestinal: No symptom reported Genitourinary: No symptom reported Musculoskeletal: No symptom reported Skin: No symptom reported Psychiatric: No symptom reported Endocrine: No symptom reported Hematologic/Lymphatic: No symptom reported Vital Signs Vital Signs Date Time Temp Pulse Resp B/P (MAP) Pulse Ox O2 Delivery O2 Flow Rate FiO2 05/15/24 11:26 102 131/80 05/15/24 08:15 99.1 20 95 99.1 05/15/24 03:45 21 05/15/24 03:33 Room Air* 0 Physical Exam General Appearance: Cooperative. Obese Pulmonary/Respiratory: Diminished bilateral lower lobes Cardiovascular/Chest: Regular rate and rhythm. Peripheral Pulses: 2+ Radial (R). 2+ Radial (L). 2+ Pedal (R). 2+ Pedal (L) Abdominal Exam: Normal bowel sounds. Ankle Exam: Negative ankle edema Lower extremities: Negative lower extremity edema Neuro/Mental Status: A/OX4, coherent. Thoughts/Psych: Normal thought pattern. Appropriate mood and affect. Good judgment and insight. Appearance: No acute distress. Skin Exam: Normal inspection. Normal color. Warm and dry. Labs/Diagnostic Data Labs Test 05/15/24 05:20 05/15/24 03:30 05/15/24 02:47 05/15/24 00:04 Range/Units White Blood Count 14.3 H 4.4-10.8 10^3/uL Red Blood Count 5.03 4.5-5.90 10^6/uL Hemoglobin 13.3 L 13.5-17.5 g/dL Hematocrit 39.7 L 41.0-53.0 % Mean Corpuscular Volume 78.9 L 80.0-100.0 fL Mean Corpuscular Hemoglobin 26.5 L 28.0-32.0 pg Mean Corpuscular Hemoglobin Concent 33.7 32.0-36.0 g/dL Red Cell Distribution Width 17.4 H 11.8-14.3 % Platelet Count 416 140-450 10^3/uL Mean Platelet Volume 7.1 6.9-10.8 fL Neutrophils (%) (Auto) 72.9 37.0-80.0 % Lymphocytes (%) (Auto) 12.8 10.0-50.0 % Monocytes (%) (Auto) 12.5 H 0.0-12.0 % Eosinophils (%) (Auto) 0.9 0.0-7.0 % Basophils (%) (Auto) 0.9 0.0-2.0 % Neutrophils # (Auto) 10.4 H 1.6-8.6 10 ^3/uL Lymphocytes # (Auto) 1.8 0.4-5.4 10 ^3/uL Monocytes # (Auto) 1.8 H 0-1.3 10 ^3/uL Eosinophils # (Auto) 0.1 0-0.8 10 ^3/uL Basophils # (Auto) 0.1 0-0.2 10 ^3/uL Nucleated Red Blood Cells 0.0 % Sodium Level 134 L 136-145 mmol/L Potassium Level 3.8 3.5-5.1 mmol/L Chloride Level 105 98-107 mmol/L Carbon Dioxide Level 22 20-31 mmol/L Anion Gap 7 5-15 Blood Urea Nitrogen 12 9-23 mg/dL Creatinine 0.86 0.700-1.30 mg/dL Glomerular Filtration Rate Calc 110 >90 mL/min BUN/Creatinine Ratio 14.0 10.0-20.0 Serum Glucose 158 H 74-106 mg/dL Hemoglobin A1c 6.4 H <5.7 % A1C Calcium Level 9.0 8.7-10.4 mg/dL Total Bilirubin 1.2 H 0.2-1.0 mg/dL Aspartate Amino Transferase (AST) 37 13-40 U/L Alanine Aminotransferase (ALT) 46 H 7-40 U/L Alkaline Phosphatase 206 H 46-116 U/L Total Protein 7.6 5.7-8.2 g/dL Albumin 3.8 3.2-4.8 g/dL Urine Color Yellow Yellow Urine Clarity Clear Clear Urine pH 6.0 5.0-9.0 Urine Specific [place] 1.030 1.001-1.035 Urine Protein Trace H Negative Urine Ketones Negative Negative Urine Blood Negative Negative /uL Urine Nitrite Negative Negative Urine Bilirubin Negative Negative Urine Urobilinogen Normal Negative mg/dL Urine Leukocyte Esterase Negative Negative /uL Urine RBC 1 0 - 3 /hpf Urine Microscopic WBC 0-3 /HPF Urine Squamous Epithelial Cells None seen <5 /hpf Urine Bacteria None seen None Seen /hpf Urine Glucose Normal Normal mg/dL Urine Opiates Screen Neg NEGATIVE Urine Fentanyl Screen Neg NEGATIVE Urine Barbiturates Screen Neg NEGATIVE Urine Phencyclidine Screen Neg NEGATIVE Urine Amphetamines Screen Pos NEGATIVE Urine Benzodiazepines Screen Neg NEGATIVE Urine Cocaine Screen Neg NEGATIVE Urine Cannabinoids Screen Neg NEGATIVE Troponin I High Sensitivity 24 </=54 ng/L Blood Gas Specimen Type Arterial Blood Gas Sample Site Right radial Blood Gas Patient Temperature 37.0 Arterial Blood Date Drawn [id number] Arterial Blood pH 7.495 H 7.350-7.450 Arterial Blood Partial Pressure CO2 28.7 L 35.0-48.0 mmHg Arterial Blood Partial Pressure O2 64.4 L 83.0-108.0 mmHg Arterial Blood HCO3 21.6 21.0-28.0 mmol/L Arterial Blood Oxygen Saturation 94.1 94.0-98.0 % Arterial Blood Base Excess -0.5 -2.0-3.0 mmol/L Arterial Blood Oxyhemoglobin 91.8 L 94.0-98.0 % Arterial Blood Carboxyhemoglobin 1.9 H 0.5-1.5 % Arterial Blood Methemoglobin 0.5 0.0-1.5 % Aurelio Test Modified Blood Gas Total Hemoglobin 13.80 13.5-17.5 g/dL Blood Gas Modality Room air FiO2 % 21.0 Test 3/6/25 23:55 05/14/24 23:51 Range/Units Lactic Acid Level 0.9 0.4-2.0 mmol/L Prothrombin Time 11.2 9.3-11.8 sec Prothrombin Time INR 1.06 0.9-1.15 Magnesium Level 2.0 1.6-2.6 mg/dL B-Type Natriuretic Peptide 276.64 0-100 pg/mL Plasma/Serum Blood Alcohol 3.9 <10 mg/dL Assessment Noncardiac chest pain Chronic compensated HFrEF, NYHA class III Hypertensive urgency Moderate right pleural effusion status post right thoracentesis (1.5L out) Pneumonia COPD History of PE (on Eliquis) History of DVT Amphetamine abuse Tobacco use Medical noncompliance Morbid obesity Plan/Recommendation We will continue with the following plan/recommendations (Dr. Nuno): * Transthoracic echocardiogram from 04/02/2024 reveals an EF of 20% with severe global hypokinesis * Initiate guideline directed medical therapy for CHF as tolerated * Strict intake and output, daily weights, maintain fluid restriction * BP control * Risk factor modifications, counseled * Adherence to medications * Adherence of substance abuse Patient seen and examined at bedside with . There is no further inpatient cardiac workup indicated at this time. The patient has been educated to follow up with a social work program coordinator in the outpatient setting as he may eventually benefit from ischemic workup. The patient was educated on the importance of c essation from substance abuse. The patient may also eventually qualify for ICD placement if no improvement in EF within 3-6 months on uninterrupted GDMT. Thank you for allowing us to care for this patient. Please call with any questions or concerns. Critical care time spent: 44 minutes This medical document was created using an electronic medical record system with voice recognition software and computerized dictation system. Although this document has been carefully reviewed, there might still be some phonetic and typographical errors. Occasional wrong-word or ``sound-alike substitutions may have occurred due to the inherent limitations of voice recognition software. These areas are purely typographical due to imperfections of the software programs and do not reflect any compromise in the patient's medical care. Please read the chart carefully and recognize, using context, where these substitutions have occurred. Plan discussed with: Patient NYHA Physical activity limitations: Class3(Marked) ordinary (activity causes symtoms) Date of Service: May 15, 2024 Billing Provider: PARISH NUNO MD Cardiology Common Codes: [id number] INP/OBS CARE (High) Cardiology Consultation Codes: [id number] CONSULT <45MIN VIOLETTA DAVILA May 15, 2024 14:20
[2024-05-15 14:55] LABS: Basophils % (manual) 0 (0.0-2.0); Blast Cells 0; Eosinophils % (manual) 0 (0-7); Metamyelocytes % 0; Myelocytes % 0; Promyelocytes % 0; Reactive Lymphocytes 0
--- NOTE | 2024-05-15 15:00 | DVH ---
CHEST RADIOGRAPH Indication: POST THORACENTESIS Technique: Single frontal view of the chest was obtained COMPARISON: XY CHEST XRAY 1 VIEW on DOS: 04/16/24, XY CHEST PORTABLE on DOS: 04/02/24, XY CHEST PORTABLE on DOS: 03/31/24, XY CHEST PORTABLE on DOS: 03/20/24 FINDINGS: Lines and Tubes: None Lungs: Right lower lobe airspace disease. Pleura: Small right pleural effusion. No pneumothorax. Cardiomediastinal contours: Unremarkable Bones: Unremarkable IMPRESSION: Right lower lobe airspace disease and small right pleural effusion.
--- NOTE | 2024-05-15 15:04 | DVH ---
US THORACENTESIS, HISTORY: PLEURAL EFFUSION PROCEDURE: Informed consent was obtained. The patient was seated on the bed. A limited localization u ltrasound of the right thorax was obtained, and the optimal approach was marked on the skin. The area was prepped with chlorhexidine which was allowed to dry and draped in the usual sterile fashion. El e out was performed. The skin and the soft tissues were infiltrated with 1% lidocaine. A 5.5 [place] c entesis needle catheter was advanced into right pleural space. Following aspiration of fluid, the cat heter was advanced and the needle removed. About 1500 cc of fluid was drained. Specimen/s was/were se nt for appropriate cultures/cytology/cultures and cytology. No immediate complication was identified. FINDINGS: Moderate right pleural effusion. Aspirated fluid is clear and serous. IMPRESSION: Successful right thoracentesis with 1.5L removed.
--- NOTE | 2024-05-15 15:20 | DVHPN2 ---
Subjective Some shortness of breath but somewhat better Reviewed: Care Plan, H&P, Labs, Medications, Previous Orders, Radiology, Other (Beveler) Changes from previous H/P or p: No Changes Respiratory: Shortness of breath Objective Vitals Vital Signs Date Time Temp Pulse Resp B/P (MAP) Pulse Ox O2 Delivery O2 Flow Rate FiO2 05/15/24 11:26 102 131/80 05/15/24 08:15 99.1 20 95 99.1 05/15/24 03:45 21 05/15/24 03:33 Room Air* 0 Intake/Output Intake and Output 05/15/24 07:00 Intake Total 1610 ml Output Total 1400 ml Balance 210 ml Intake IV Total 1610 ml Output Urine Total 1400 ml General Appearance: Alert, Oriented X3, Cooperative, mild distress HEENT: Atraumatic Lungs: Other (Decreased breath sound in the right lung) Cardiovascular: Regular rate (Borderline tachycardia) Abdomen: Normal bowel sounds, Soft, No tenderness Extremities: Other (2+ edema bilateral lower extremities) Medications Current Medications Medications Dose Ordered Sig/Ahsan Route Start Time Stop Time Status Last Admin Dose Admin Vancomycin HCl 0 ml @ 0 mls/hr UD IV 05/15/24 03:00 Azithromycin 250 ml @ 125 mls/hr DAILY IV 05/15/24 10:00 05/15/24 11:18 125 MLS/HR Aspirin 81 mg DAILY PO 05/15/24 10:00 05/15/24 11:19 81 MG Albuterol 2.5 mg Q4HPRN PRN NEB 05/15/24 03:00 05/15/24 03:33 2.5 MG Ipratropium [place] 0.5 mg Q4HPRN PRN NEB 05/15/24 03:00 05/15/24 03:33 0.5 MG Furosemide 20 mg DAILY IV 05/15/24 10:00 05/15/24 11:25 20 MG Sodium Chloride 10 ml Q8HR IV 05/15/24 06:00 05/15/24 05:38 10 ML Acetaminophen/ Hydrocodone Bitart 1 tab Q4HP PRN PO 05/15/24 03:00 05/15/24 06:29 1 TAB Ondansetron HCl 4 mg Q4HP PRN IV 05/15/24 03:00 Docusate Sodium 100 mg BIDPRN PRN PO 05/15/24 03:00 Acetaminophen 650 mg Q6HP PRN PO 05/15/24 03:00 Morphine Sulfate 2 mg Q4HPRN PRN IV 05/15/24 03:00 Hydralazine HCl 10 mg Q6HP PRN IV 05/15/24 03:30 05/15/24 03:39 10 MG Carvedilol 3.125 mg Q12HR PO 05/15/24 10:00 05/15/24 11:26 3.125 MG Nitroglycerin 0.4 mg Q5MINP PRN SL 05/15/24 05:15 Morphine Sulfate 2 mg Q30M PRN IV 05/15/24 05:15 Methylprednisolone Sodium Succinate 40 mg Q8HR IV 05/15/24 14:00 Famotidine 20 mg Q12HR IV 05/15/24 10:00 05/15/24 11:25 20 MG Vancomycin HCl 250 ml @ 200 mls/hr Q8H IV 05/15/24 18:00 Laboratory Results Laboratory Tests 05/15/24 05:20 Chemistry Test 05/14/24 23:51 05/15/24 05:20 Albumin 3.8 g/dL (3.2-4.8) 3.8 g/dL (3.2-4.8) Calcium Level 9.1 mg/dL (8.7-10.4) 9.0 mg/dL (8.7-10.4) Magnesium Level 2.0 mg/dL (1.6-2.6) Total Protein 7.6 g/dL (5.7-8.2) 7.6 g/dL (5.7-8.2) Coagulation Test 05/14/24 23:51 Prothrombin Time 11.2 sec (9.3-11.8) Prothrombin Time INR 1.06 (0.9-1.15) Cardiac Markers Test 05/14/24 23:51 B-Type Natriuretic Peptide 276.64 pg/mL (0-100) LFT Test 05/14/24 23:51 05/15/24 05:20 Alanine Aminotransferase (ALT) 48 U/L (7-40) H 46 U/L (7-40) H Alkaline Phosphatase 216 U/L (46-116) H 206 U/L (46-116) H Aspartate Amino Transferase (AST) 42 U/L (13-40) H 37 U/L (13-40) Total Bilirubin 0.8 mg/dL (0.2-1.0) 1.2 mg/dL (0.2-1.0) H HgA1c, TSH Test 05/15/24 05:20 Hemoglobin A1c 6.4 % A1C (<5.7) H Urinalysis Test 05/15/24 03:30 Urine Color Yellow (Yellow) Urine Clarity Clear (Clear) Urine pH 6.0 (5.0-9.0) Urine Specific [place] 1.030 (1.001-1.035) Urine Protein Trace (Negative) H Urine Ketones Negative (Negative) Urine Blood Negative /uL (Negative) Urine Nitrite Negative (Negative) Urine Bilirubin Negative (Negative) Urine Urobilinogen Normal mg/dL (Negative) Urine Leukocyte Esterase Negative /uL (Negative) Urine RBC 1 /hpf (0 - 3) Urine Microscopic WBC /HPF (0-3) Urine Squamous Epithelial Cells None seen /hpf (<5) Urine Bacteria None seen /hpf (None Seen) Urine Glucose Normal mg/dL (Normal) Blood Gas Results Test 05/15/24 00:04 Arterial Blood pH 7.495 (7.350-7.450) FiO2 % 21.0 Assessment/Plan Assessment/Plan Acute on chronic systolic heart failure Pneumonia/right lung Right lower effusion/status post thoracentesis today with 1.5 L taken out/mostly serous and serosanguineous. No empyema COPD exacerbation AFib with RVR Hypertension History of PA History of PE Hyperglycemia/diabetes Morbid obesity with BMI 41.4 Methamphetamine use Elevated liver function tests Plan: IV antibiotics. IV Lasix. Status post thoracentesis with 1.5 L taken out We will change vancomycin to less nephrotoxic antibiotics Liver ultrasound and hepatitis panel Further plan per orders. Plan discussed with: Patient, Other (Radiology) My Orders Orders - YARED SEGAL MD Procedure Category Date Status Time Thoracentesis US 05/15/24 Resulted 13:52 Date of Service: May 15, 2024 Billing Provider: YARED SEGAL MD Common Visit Codes: [id number] INP/OBS CARE(HIGH) YARED SEGAL MD May 15, 2024 15:19
[2024-05-15] MEDS: methylPREDNISolone SOD SUCC 40 MG/ML VL IV SCH ×2 (15:23→21:33)
[2024-05-15] MEDS: levoFLOXacin 500MG 100 ML IV ONE (15:30)
[2024-05-15 16:05] LABS: Band Neutrophils % (manual) 4; Lymphocytes % (manual) 7 (10.0-50.0); Monocytes % (manual) 10 (0-12); Platelet Estimate Adequate
[2024-05-15 16:07] LABS: Platelet Count (auto) 420 10^3/uL (140-450)
--- NOTE | 2024-05-15 16:29 | DVH ---
ULTRASOUND ABDOMEN LIMITED INDICATION: hi LFTs TECHNIQUE: Multiple real-time sonographic images of the abdomen were obtained. COMPARISON: CTA chest 05/15/2024 FINDINGS: The liver is prominent in size measuring 21.8 cm in length. The visualized liver parenchyma appears homogenous . No discrete hepatic lesion or intrahepatic biliary ductal dilatation is identifi ed. There is some right-sided pleural effusion seen. There is no evidence of gallstones, gallbladder wall thickening or pericholecystic fluid. The common biliary duct is not dilated. The right kidney measures 11.2 cm length. No sonographic evidence of nephrolithiasis or hydronephro sis. Pancreas is obscured by bowel gas. IMPRESSION: 1. Prominent size liver. There is no sonographic evidence of a hepatic lesion or intrahepatic biliary ductal dilatation. HS:Y
--- NOTE | 2024-05-15 17:23 | DVHINCON2 ---
Date of service: May 15, 2024 Referring Physician MICHELLE Spence History of Present Illness 43-year-old man history of atrial fibrillation, anxiety, CHF, COPD, hypertension, pulmonary embolism who presented with chest pain. He was had a chest x-ray performed that demonstrated [id number] right pleural effusion. It was loculated. In the ED he was having worsened shortness of breath and confusion. He had a CT of the chest revealing multifocal pneumonia throughout the right lung. Large right pleural effusion that has loculated superiorly and laterally. Trace pericardial effusion. No pulmonary embolism. Pulmonary consultation is called due to acute hypoxic respiratory failure, hemoptysis and loculated right pleural effusion. Review of systems: Unable to obtain due to patient's critical condition. Past medical history: Anxiety, atrial fibrillation, CHF, COPD, hypertension, pulmonary embolism Past surgical history: None mentioned in prior surgeries. Medications: Reviewed Allergies: Cephalexin Family history: No family history of premature CAD. No family history of lung disease Social history: Smokes cigarettes. No alcohol use. Marijuana and methamphetamine abuse. Lives at home. Family History: Patient reports no known family medical history. Allergies: Coded Allergies: Cephalexin (Verified Allergy, Unknown, 03/31/24) Home Meds Active Scripts Dextromethorphan Polistirex (Robitussin 12 Hour Cough) 30 Mg/5 Ml Kristal, 30 MG PO Q6HPRN PRN for 7 Days, #100 ML Prov:JOHN HORNE MD 03/20/24 Penicillin V Potassium (Veetids) 500 Mg Tab, 1 TAB PO BID, #20 TAB Prov:JOHN HORNE MD 03/20/24 Prednisone (Prednisone) 10 Mg Matt, 20 MG PO DAILY for 5 Days, #10 PACK Prov:JOHN HORNE MD 03/20/24 Albuterol Sulfate (VENTOLIN MDI) 90 Mcg Ih, 90 MCG IN Q4HPRN PRN for 10 Days, #1 INH Prov:JOHN HORNE MD 03/20/24 Current Medications Current Medications Medications (Trade) Dose Ordered Sig/Ahsan Route PRN Reason Start Time Stop Time Status Last Admin Vancomycin HCl 0 ml @ 0 mls/hr UD IV 05/15/24 03:00 05/15/24 15:24 DC Azithromycin 250 ml @ 125 mls/hr DAILY IV 05/15/24 10:00 05/15/24 15:27 DC 05/15/24 11:18 Aspirin 81 mg DAILY PO 05/15/24 10:00 05/15/24 11:19 Albuterol (Ventolin Medneb) 2.5 mg Q4HPRN PRN NEB SHORTNESS OF BREATH 05/15/24 03:00 05/15/24 03:33 Ipratropium Bastian (Atrovent Medneb) 0.5 mg Q4HPRN PRN NEB SHORTNESS OF BREATH 05/15/24 03:00 05/15/24 03:33 Furosemide (Lasix Injection) 20 mg DAILY IV 05/15/24 10:00 05/15/24 15:24 DC 05/15/24 11:25 Sodium Chloride (Saline Lock Ns) 10 ml Q8HR IV 05/15/24 06:00 05/15/24 15:20 Acetaminophen/ Hydrocodone Bitart (Cohoes 5/325MG Tab) 1 tab Q4HP PRN PO MODERATE PAIN (4-6 PAIN SCALE) 05/15/24 03:00 05/15/24 06:29 Ondansetron HCl (Zofran) 4 mg Q4HP PRN IV NAUSEA / VOMITING 05/15/24 03:00 Docusate Sodium (Colace Capsule) 100 mg BIDPRN PRN PO FOR CONSTIPATION 05/15/24 03:00 Acetaminophen (Tylenol Tablet) 650 mg Q6HP PRN PO PAIN SCALE 1-3 OR TEMP>100.4 05/15/24 03:00 05/15/24 15:24 DC Morphine Sulfate 2 mg Q4HPRN PRN IV SEVERE PAIN (7-10 PAIN SCALE) 05/15/24 03:00 Hydralazine HCl (Apresoline Injection) 10 mg Q6HP PRN IV SBP>150 05/15/24 03:30 05/15/24 03:39 Carvedilol (Coreg Tablet) 3.125 mg Q12HR PO 05/15/24 10:00 05/15/24 11:26 Nitroglycerin (Ntrostat Sublingual) 0.4 mg Q5MINP PRN SL FOR CHEST PAIN 05/15/24 05:15 Morphine Sulfate 2 mg Q30M PRN IV FOR CHEST PAIN 05/15/24 05:15 Methylprednisolone Sodium Succinate (Solu Medrol) 40 mg Q8HR IV 05/15/24 14:00 05/15/24 15:25 DC 05/15/24 15:23 Famotidine (Pepcid Injection) 20 mg Q12HR IV 05/15/24 10:00 05/15/24 11:25 Vancomycin HCl 250 ml @ 200 mls/hr Q8H IV 05/15/24 18:00 05/15/24 15:24 DC Furosemide (Lasix Injection) 40 mg BIDD IV 05/15/24 18:00 Potassium Bicarbonate (Klor-Con/Ef) 25 meq BID PO 05/15/24 22:00 Methylprednisolone Sodium Succinate (Solu Medrol) 40 mg BID IV 05/15/24 22:00 Levofloxacin/ Dextrose 100 ml @ 100 mls/hr DAILY IV 05/16/24 10:00 Vital Signs Vital Signs Date Time Temp Pulse Resp B/P (MAP) Pulse Ox O2 Delivery O2 Flow Rate FiO2 05/15/24 15:12 92 148/81 05/15/24 10:26 97.8 20 93 97.8 05/15/24 10:26 Nasal Cannula 3.0 05/15/24 10:26 32 Physical Exam Gen.: Patient lying in bed in no apparent distress. On supplemental oxygen. Head: Normocephalic, atraumatic Eyes: EOMI/PERRLA. Ears: Normal hearing. Normal anatomy. Neck/trachea: Trachea midline, supple. Nose: Normal external anatomy. Mouth: Moist mucous membranes. Chest: Fair air entry bilaterally. No wheezing or rhonchi. Cardio vascular: Positive S1, positive S2. Regular rate and rhythm. Abdomen: Positive bowel sounds in all 4 quadrants. Soft, non-tender, non- distended. : Deferred. Rectal: Deferred Skin: Warm, dry. Extremities: 2+ radial pulses bilaterally. No lower extremity edema. Neuro: Awake, alert, oriented x3. No gross motor or sensory deficits. Cranial nerves II through XII intact. Gait not assessed. Labs/Diagnostic Data Labs Test 05/15/24 15:10 05/15/24 05:20 05/15/24 03:30 05/15/24 02:47 Range/Units White Blood Count 14.3 H 4.4-10.8 10^3/uL Red Blood Count 5.03 4.5-5.90 10^6/uL Hemoglobin 13.3 L 13.5-17.5 g/dL Hematocrit 39.7 L 41.0-53.0 % Mean Corpuscular Volume 78.9 L 80.0-100.0 fL Mean Corpuscular Hemoglobin 26.5 L 28.0-32.0 pg Mean Corpuscular Hemoglobin Concent 33.7 32.0-36.0 g/dL Red Cell Distribution Width 17.4 H 11.8-14.3 % Platelet Count 420 140-450 10^3/uL Mean Platelet Volume 7.1 6.9-10.8 fL Neutrophils (%) (Auto) 72.9 37.0-80.0 % Lymphocytes (%) (Auto) 12.8 10.0-50.0 % Monocytes (%) (Auto) 12.5 H 0.0-12.0 % Eosinophils (%) (Auto) 0.9 0.0-7.0 % Basophils (%) (Auto) 0.9 0.0-2.0 % Neutrophils # (Auto) 10.4 H 1.6-8.6 10 ^3/uL Lymphocytes # (Auto) 1.8 0.4-5.4 10 ^3/uL Monocytes # (Auto) 1.8 H 0-1.3 10 ^3/uL Eosinophils # (Auto) 0.1 0-0.8 10 ^3/uL Basophils # (Auto) 0.1 0-0.2 10 ^3/uL Differential Total Cells Counted 100.0 100 Neutrophils % (Manual) 79 37.0-80.0 Band Neutrophils % (Manual) 4 Lymphocytes % (Manual) 7 L 10.0-50.0 Monocytes % (Manual) 10 0-12 Eosinophils % (Manual) 0 0-7 Basophils % (Manual) 0 0.0-2.0 Metamyelocytes % (manual) 0 Myelocytes % (Manual) 0 Promyelocytes % (Manual) 0 Blast Cells % (Manual) 0 Nucleated Red Blood Cells 0.0 % Reactive Lymphocytes 0 Platelet Estimate Adequate Sodium Level 134 L 136-145 mmol/L Potassium Level 3.8 3.5-5.1 mmol/L Chloride Level 105 98-107 mmol/L Carbon Dioxide Level 22 20-31 mmol/L Anion Gap 7 5-15 Blood Urea Nitrogen 12 9-23 mg/dL Creatinine 0.86 0.700-1.30 mg/dL Glomerular Filtration Rate Calc 110 >90 mL/min BUN/Creatinine Ratio 14.0 10.0-20.0 Serum Glucose 158 H 74-106 mg/dL Hemoglobin A1c 6.4 H <5.7 % A1C Calcium Level 9.0 8.7-10.4 mg/dL Total Bilirubin 1.2 H 0.2-1.0 mg/dL Aspartate Amino Transferase (AST) 37 13-40 U/L Alanine Aminotransferase (ALT) 46 H 7-40 U/L Alkaline Phosphatase 206 H 46-116 U/L Lactate Dehydrogenase 238 120-246 U/L Total Protein 7.6 5.7-8.2 g/dL Albumin 3.8 3.2-4.8 g/dL Urine Color Yellow Yellow Urine Clarity Clear Clear Urine pH 6.0 5.0-9.0 Urine Specific [place] 1.030 1.001-1.035 Urine Protein Trace H Negative Urine Ketones Negative Negative Urine Blood Negative Negative /uL Urine Nitrite Negative Negative Urine Bilirubin Negative Negative Urine Urobilinogen Normal Negative mg/dL Urine Leukocyte Esterase Negative Negative /uL Urine RBC 1 0 - 3 /hpf Urine Microscopic WBC 0-3 /HPF Urine Squamous Epithelial Cells None seen <5 /hpf Urine Bacteria None seen None Seen /hpf Urine Glucose Normal Normal mg/dL Urine Opiates Screen Neg NEGATIVE Urine Fentanyl Screen Neg NEGATIVE Urine Barbiturates Screen Neg NEGATIVE Urine Phencyclidine Screen Neg NEGATIVE Urine Amphetamines Screen Pos NEGATIVE Urine Benzodiazepines Screen Neg NEGATIVE Urine Cocaine Screen Neg NEGATIVE Urine Cannabinoids Screen Neg NEGATIVE Troponin I High Sensitivity 24 </=54 ng/L Test 05/15/24 00:04 05/14/24 23:55 05/14/24 23:51 Range/Units Blood Gas Specimen Type Arterial Blood Gas Sample Site Right radial Blood Gas Patient Temperature 37.0 Arterial Blood Date Drawn [id number] Arterial Blood pH 7.495 H 7.350-7.450 Arterial Blood Partial Pressure CO2 28.7 L 35.0-48.0 mmHg Arterial Blood Partial Pressure O2 64.4 L 83.0-108.0 mmHg Arterial Blood HCO3 21.6 21.0-28.0 mmol/L Arterial Blood Oxygen Saturation 94.1 94.0-98.0 % Arterial Blood Base Excess -0.5 -2.0-3.0 mmol/L Arterial Blood Oxyhemoglobin 91.8 L 94.0-98.0 % Arterial Blood Carboxyhemoglobin 1.9 H 0.5-1.5 % Arterial Blood Methemoglobin 0.5 0.0-1.5 % Aurelio Test Modified Blood Gas Total Hemoglobin 13.80 13.5-17.5 g/dL Blood Gas Modality Room air FiO2 % 21.0 Lactic Acid Level 0.9 0.4-2.0 mmol/L Prothrombin Time 11.2 9.3-11.8 sec Prothrombin Time INR 1.06 0.9-1.15 Magnesium Level 2.0 1.6-2.6 mg/dL B-Type Natriuretic Peptide 276.64 0-100 pg/mL Plasma/Serum Blood Alcohol 3.9 <10 mg/dL Assessment Impression: Acute hypoxic respiratory failure Hemoptysis Pneumonia likely gram negative, right lung Morbid obesity BMI 41.4 Loculated left pleural effusion Atelectasis Acute on chronic CHF exacerbation Acute exacerbation COPD Mediastinal lymphadenopathy Plan: CT of the chest report and images reviewed. No acute pulmonary embolism. Multifocal pneumonia. Large right pleural effusion, loculated superiorly and laterally. Supplemental oxygen On 3 lpm via NC Titrate to keep o2 sat above 92% Continue Antibiotics s/p right thoracentesis 1.5 Liters removed by IR F/u cultures Post-procedure CXR demonstrates interval reduction in right pleural effusion; now small and no pneumothorax. Bronchodilators IV steroids Diuresis euvolemia. On Lasix twice daily. Monitor ins and outs. Monitor electrolytes. Supplement as necessary. Fluid restriction Salt restriction. Supplement potassium. Monitor closely. Consider Surgery consultation for decortication. If not a candidate, can consider chest tube placement with TPase course. GI Prophylaxis- Pepcid Prognosis: Poor given multiple comorbidities. Rest of plan per hospitalist and other consultants. Thank you MICHELLE Spence for allowing me to participate in this patient's care. Further recommendations will depend on patient's clinical course. Please do not hesitate to contact me if you have any questions or concerns. This medical document was created using an electronic medical record system with [employer] system. Although this document has been carefully reviewed, there may still be some phonetic and typographical errors. These areas are purely typographical due to imperfections of the software programs, and do not reflect any compromise in the patient's medical care. Plan discussed with: Patient, Other (RN Yesica, [employer]) SHERI KAUFMAN MD May 15, 2024 17:23
[2024-05-15] MEDS ORDERED: VANCOMYCIN 1.25GM/250ML 250 ML IV SCH (18:00)
[2024-05-15] MEDS ORDERED: METO25TA93 PO (19:03)
[2024-05-15] MEDS ORDERED: PANT1INJ3 PO (19:03)
[2024-05-15] MEDS ORDERED: APIX5TAB PO (19:03)
[2024-05-15] MEDS ORDERED: FURO40TA4 PO (19:03)
[2024-05-15] MEDS ORDERED: LOSA-535 PO (19:03)
[2024-05-15 19:35] LABS: Body Fluid Red Blood Cells 8691 CUMM (0-2000); Body Fluid White Blood Cells 7274 CUMM (0-200)
[2024-05-15] MEDS: SACUBITRIL-VALSARTAN 24mg/26mg TAB PO SCH (21:34)
[2024-05-15] MEDS: POTASSIUM EFFERVESENT TAB 25 MEQ PO SCH (21:35)
[2024-05-16] VITALS (9 sets, daily range): BP systolic 135–154; BP diastolic 78–85; PULSE 97–107; RESP 18–19; TEMP 97.5–98.8; O2SAT 93–97
--- NOTE | 2024-05-16 05:39 | DVH ---
CHEST RADIOGRAPH Indication: fu Technique: Single frontal view of the chest was obtained Comparison: XY CHEST PORTABLE on DOS: 05/15/24, XY CHEST XRAY 1 VIEW on DOS: 04/16/24, XY CHEST PORTABLE on DOS: 04/02/24 IMPRESSION: The heart is prominent size. The left lung appears clear. Stable appearance of probable small to mod erate right pleural effusion with atelectasis or consolidation at the lung base as seen on prior CT.
[2024-05-16 06:17] LABS: Eosinophils # (auto) 0 10 ^3/uL (0-0.8); Hemoglobin 12.9 g/dL (13.5-17.5); Mean Corpuscular Hemoglobin 25.7 pg (28.0-32.0)
[2024-05-16 06:19] LABS: Basophils # (auto) 0.1 10 ^3/uL (0-0.2); Basophils % (auto) 0.3 % (0.0-2.0); Mean Corpuscular Hgb Conc. 32.3 g/dL (32.0-36.0); Mean Corpuscular Volume 79.6 fL (80.0-100.0); Monocytes # (auto) 1.6 10 ^3/uL (0-1.3); Monocytes % (auto) 6.6 % (0.0-12.0); Neutrophils # (auto) 21.5 10 ^3/uL (1.6-8.6); Neutrophils % (auto) 89.1 % (37.0-80.0); Platelet Count (auto) 423 10^3/uL (140-450); Red Blood Cells 5.03 10^6/uL (4.5-5.90); Red Cell Distribution Width 17.4 % (11.8-14.3); White Blood Cell 24.2 10^3/uL (4.4-10.8)
[2024-05-16 06:29] LABS: Alanine Aminotransferase 35 U/L (7-40); Albumin 3.8 g/dL (3.2-4.8); Anion Gap 7 (5-15); Aspartate Aminotransferase 16 U/L (13-40); BUN/Creatinine Ratio 19.5 (10.0-20.0); Bilirubin, Total 0.5 mg/dL (0.2-1.0); Blood Urea Nitrogen 16 mg/dL (9-23); Calcium 9.5 mg/dL (8.7-10.4); Carbon Dioxide 23 mmol/L (20-31); Chloride 105 mmol/L (98-107); Potassium 4.1 mmol/L (3.5-5.1); Total Protein 7.8 g/dL (5.7-8.2)
[2024-05-16 06:34] LABS: Alkaline Phosphatase 172 U/L (46-116); Glucose 223 mg/dL (74-106); Sodium 135 mmol/L (136-145)
[2024-05-16] MEDS ORDERED: VANCOMYCIN PER PHARMACY 0 MG IV SCH (09:15)
[2024-05-16] MEDS: levoFLOXacin 500MG 100 ML IV SCH (10:07)
[2024-05-16] MEDS: SPIRONOLACTONE 25 MG TAB PO SCH (10:08)
[2024-05-16] MEDS: EMPAGLIFLOZIN 10 MG TAB PO SCH (10:08)
[2024-05-16] MEDS: VANCOMYCIN 1.75GM/350ML 350 ML IV SCH (14:31)
--- NOTE | 2024-05-16 16:59 | DVHPN2 ---
Subjective Feels better today Reviewed: Care Plan, H&P, Labs, Medications, Previous Orders, Radiology, Other Changes from previous H/P or p: No Changes Respiratory: Shortness of breath Objective Vitals Vital Signs Date Time Temp Pulse Resp B/P (MAP) Pulse Ox O2 Delivery O2 Flow Rate FiO2 05/16/24 13:00 98.0 104 18 144/80 (101) 96 98.0 05/16/24 10:08 Room Air* 0 21 Intake/Output Intake and Output 05/16/24 07:00 Intake Total 1180 ml Output Total 800 ml Balance 380 ml Intake Oral 1180 ml Output Urine Total 800 ml # Voids 4 General Appearance: Alert, Oriented X3, Cooperative, mild distress HEENT: Atraumatic Lungs: Other Cardiovascular: Regular rate Abdomen: Normal bowel sounds, Soft, No tenderness Extremities: Other Medications Current Medications Medications Dose Ordered Sig/Ahsan Route Start Time Stop Time Status Last Admin Dose Admin Aspirin 81 mg DAILY PO 05/15/24 10:00 05/16/24 10:07 81 MG Sodium Chloride 10 ml Q8HR IV 05/15/24 06:00 05/16/24 14:31 10 ML Acetaminophen/ Hydrocodone Bitart 1 tab Q4HP PRN PO 05/15/24 03:00 05/16/24 06:06 1 TAB Ondansetron HCl 4 mg Q4HP PRN IV 05/15/24 03:00 Docusate Sodium 100 mg BIDPRN PRN PO 05/15/24 03:00 Morphine Sulfate 2 mg Q4HPRN PRN IV 05/15/24 03:00 Hydralazine HCl 10 mg Q6HP PRN IV 05/15/24 03:30 05/15/24 03:39 10 MG Carvedilol 3.125 mg Q12HR PO 05/15/24 10:00 05/16/24 10:40 3.125 MG Nitroglycerin 0.4 mg Q5MINP PRN SL 05/15/24 05:15 Morphine Sulfate 2 mg Q30M PRN IV 05/15/24 05:15 Famotidine 20 mg Q12HR IV 05/15/24 10:00 05/16/24 10:07 20 MG Furosemide 40 mg BIDD IV 05/15/24 18:00 05/16/24 05:42 40 MG Potassium Bicarbonate 25 meq BID PO 05/15/24 22:00 05/16/24 10:07 25 MEQ Methylprednisolone Sodium Succinate 40 mg BID IV 05/15/24 22:00 05/16/24 10:07 40 MG Levofloxacin/ Dextrose 100 ml @ 100 mls/hr DAILY IV 05/16/24 10:00 05/16/24 10:07 100 MLS/HR Sacubitril/ Valsartan 1 tab BID PO 05/15/24 22:00 05/16/24 10:08 1 TAB Empaglifozin 10 mg DAILY PO 05/16/24 10:00 05/16/24 10:08 10 MG Spironolactone 25 mg DAILY PO 05/16/24 10:00 05/16/24 10:08 25 MG Vancomycin HCl 0 ml @ 0 mls/hr UD IV 05/16/24 09:15 Vancomycin HCl 350 ml @ 200 mls/hr Q12H IV 05/16/24 11:00 05/16/24 14:31 200 MLS/HR Laboratory Results Laboratory Tests 05/16/24 05:44 Chemistry Test 05/16/24 05:44 Albumin 3.8 g/dL (3.2-4.8) Calcium Level 9.5 mg/dL (8.7-10.4) Total Protein 7.8 g/dL (5.7-8.2) Cardiac Markers Test 05/16/24 05:44 B-Type Natriuretic Peptide 253.17 pg/mL (0-100) LFT Test 05/16/24 05:44 Alanine Aminotransferase (ALT) 35 U/L (7-40) Alkaline Phosphatase 172 U/L (46-116) H Aspartate Amino Transferase (AST) 16 U/L (13-40) Total Bilirubin 0.5 mg/dL (0.2-1.0) Urinalysis Test 05/15/24 03:30 Urine Color Yellow (Yellow) Urine Clarity Clear (Clear) Urine pH 6.0 (5.0-9.0) Urine Specific [place] 1.030 (1.001-1.035) Urine Protein Trace (Negative) H Urine Ketones Negative (Negative) Urine Blood Negative /uL (Negative) Urine Nitrite Negative (Negative) Urine Bilirubin Negative (Negative) Urine Urobilinogen Normal mg/dL (Negative) Urine Leukocyte Esterase Negative /uL (Negative) Urine RBC 1 /hpf (0 - 3) Urine Microscopic WBC /HPF (0-3) Urine Squamous Epithelial Cells None seen /hpf (<5) Urine Bacteria None seen /hpf (None Seen) Urine Glucose Normal mg/dL (Normal) Microbiology Microbiology Date/Time Source Procedure Growth Status 05/15/24 22:41 Nose MRSA Screen - Final Complete 05/15/24 14:45 Pleural Fluid Gram Stain Pending Resulted 05/15/24 14:45 Pleural Fluid Body Fluid Culture - Preliminary Resulted 05/15/24 05:20 Blood Blood Culture - Preliminary NO GROWTH AFTER 24 HOURS OF INCUBATION. Resulted Assessment/Plan Assessment/Plan Acute on chronic systolic heart failure Pneumonia/right lung Right lower effusion/status post thoracentesis today with 1.5 L taken out/mostly serous and serosanguineous. No empyema COPD exacerbation AFib with RVR Hypertension History of PA History of PE Hyperglycemia/diabetes Morbid obesity with BMI 41.4 Methamphetamine use Elevated liver function tests Plan: Status post right thoracentesis done yesterday. Patient feels better. Leukocytosis could be secondary to the steroids. We will put back on vancomycin for now until cultures are finalized. Repeat CBC CMP and chest x-ray. Further plan per orders. Plan discussed with: Patient My Orders Orders - YARED SEGAL MD Procedure Category Date Status Time Vancomycin Per PHA 05/16/24 In Process Pharmacy 09:15 Complete Blood Count LAB 05/17/24 Verified 06:00 Comprehensive LAB 05/17/24 Verified Metabolic Panel 06:00 B-Type Natriuretic LAB 05/17/24 Verified Peptide 06:00 Chest Portable XY 05/17/24 Logged 06:00 Vancomycin PHA 05/16/24 In Process 1.75gm/350ml 11:00 Vancomycin,Trough LAB 05/17/24 Verified 22:00 Vancomycin Per [facility]BER[facility] 05/16/24 In Process Pharmacy Protoc 09:46 Date of Service: May 16, 2024 Billing Provider: YARED SEGAL MD Common Visit Codes: [id number] INP/OBS CARE(HIGH) YARED SEGAL MD May 16, 2024 16:59
[2024-05-16] MEDS: ONDANSETRON HCL 4 MG/2 ML VIAL IV PRN (18:32)
[2024-05-16] MEDS: MORPHINE SULFATE INJ 2 MG/ml SYRG IV PRN (18:36)
--- NOTE | 2024-05-16 23:04 | DVHPN2 ---
Progress Note - Dictate Date Seen: May 16, 2024 Medical Necessity Reason Pt with a Central, PICC or Fol: No Subjective Patient seen and examined at bedside. Breathing comfortably on room air. Overnight events reviewed. vital signs Vital Sign Date Time Temp Pulse Resp B/P (MAP) Pulse Ox O2 Delivery O2 Flow Rate FiO2 05/16/24 21:37 101 143/85 05/16/24 21:00 98.2 18 94 98.2 05/16/24 20:00 Room Air* 0 21 Total Intake and Output 05/15/24 05/15/24 05/16/24 15:00 23:00 07:00 Intake Total 380 ml 800 ml Output Total 800 ml Balance 380 ml 0 ml medications Current Medications Medications Dose Ordered Sig/Ahsan Route Start Time Stop Time Status Last Admin Dose Admin Aspirin 81 mg DAILY PO 05/15/24 10:00 05/16/24 10:07 81 MG Sodium Chloride 10 ml Q8HR IV 05/15/24 06:00 05/16/24 21:43 10 ML Acetaminophen/ Hydrocodone Bitart 1 tab Q4HP PRN PO 05/15/24 03:00 05/16/24 06:06 1 TAB Ondansetron HCl 4 mg Q4HP PRN IV 05/15/24 03:00 05/16/24 18:32 4 MG Docusate Sodium 100 mg BIDPRN PRN PO 05/15/24 03:00 Morphine Sulfate 2 mg Q4HPRN PRN IV 05/15/24 03:00 05/16/24 18:36 2 MG Hydralazine HCl 10 mg Q6HP PRN IV 05/15/24 03:30 05/15/24 03:39 10 MG Carvedilol 3.125 mg Q12HR PO 05/15/24 10:00 05/16/24 21:37 3.125 MG Nitroglycerin 0.4 mg Q5MINP PRN SL 05/15/24 05:15 Morphine Sulfate 2 mg Q30M PRN IV 05/15/24 05:15 Famotidine 20 mg Q12HR IV 05/15/24 10:00 05/16/24 21:38 20 MG Furosemide 40 mg BIDD IV 05/15/24 18:00 05/16/24 18:22 40 MG Potassium Bicarbonate 25 meq BID PO 05/15/24 22:00 05/16/24 21:38 25 MEQ Methylprednisolone Sodium Succinate 40 mg BID IV 05/15/24 22:00 05/16/24 21:38 40 MG Levofloxacin/ Dextrose 100 ml @ 100 mls/hr DAILY IV 05/16/24 10:00 05/16/24 10:07 100 MLS/HR Sacubitril/ Valsartan 1 tab BID PO 05/15/24 22:00 05/16/24 21:38 1 TAB Empaglifozin 10 mg DAILY PO 05/16/24 10:00 05/16/24 10:08 10 MG Spironolactone 25 mg DAILY PO 05/16/24 10:00 05/16/24 10:08 25 MG Vancomycin HCl 0 ml @ 0 mls/hr UD IV 05/16/24 09:15 Vancomycin HCl 350 ml @ 200 mls/hr Q12H IV 05/16/24 11:00 05/16/24 14:31 200 MLS/HR objective Gen.: Patient lying in bed in no apparent distress. Breathing on room air. Head: Normocephalic, atraumatic. Eyes: EOMI/PERRLA. Ears: Normal hearing. Normal anatomy. Neck/trachea: Trachea midline, supple. Nose: Normal external anatomy. Mouth: Moist mucous membranes. Chest: Decreased air entry bilaterally. No wheezing or rhonchi. Cardiovascular: Positive S1, positive S2. Regular rate and rhythm. Abdomen: Positive bowel sounds in all 4 quadrants. Soft, non-tender, non- distended. : Deferred. Rectal: Deferred. Skin: Warm, dry. Intact. Extremities: 2+ radial pulses bilaterally. No lower extremity edema. Neuro: Awake, alert, oriented x3. No gross motor or sensory deficits. Cranial nerves II through XII intact. Gait not assessed. laboratory and microbiology Laboratory Tests 05/16/24 05:44 Test 05/16/24 05:44 Range/Units Serum Glucose 223 H 74-106 mg/dL Assessment/Plan Impression: Acute hypoxic respiratory failure Hemoptysis Pneumonia likely gram negative, right lung Morbid obesity BMI 41.4 Loculated left pleural effusion Atelectasis Acute on chronic CHF exacerbation Acute exacerbation of COPD Mediastinal lymphadenopathy Events: Currently on room air Supplemental oxygen PRN CXR reviewed, demonstrates stable appearance of probable small to moderate right pleural effusion with atelectasis or consolidation at the lung base as seen on prior CT. Continue antibiotics Incentive spirometry Follow up pleural fluid cultures Pain control Avoid oversedation Monitor for withdrawal. Labs and imaging reviewed. Rest of plan as noted below. Plan: CT of the chest report and images reviewed. No acute pulmonary embolism. Multifocal pneumonia. Large right pleural effusion, loculated superiorly and laterally. Supplemental oxygen PRN Titrate to keep o2 sat above 92% Continue Antibiotics S/p right thoracentesis on 05/15/24 - 1.5 Liters removed by IR F/u cultures Post-procedure CXR demonstrated interval reduction in right pleural effusion; now small and no pneumothorax. Bronchodilators PRN IV steroids Diuresis to euvolemia. On Lasix twice daily. Monitor ins and outs. Monitor electrolytes. Supplement as necessary. Fluid restriction Salt restriction. Supplement potassium. Monitor closely. Consider Surgery consultation for decortication. If not a candidate, can consider chest tube placement with TPase course. GI Prophylaxis- Pepcid Prognosis: Poor given multiple comorbidities. Rest of plan per hospitalist and other consultants. Thank you MICHELLE Spence for allowing me to participate in this patient's care. Further recommendations will depend on patient's clinical course. Please do not hesitate to contact me if you have any questions or concerns. This medical document was created using an electronic medical record system with [employer] dictation system. Although this document has been carefully reviewed, there may still be some phonetic and typographical errors. These areas are purely typographical due to imperfections of the software programs, and do not reflect any compromise in the patient's medical care. Plan discussed with: Patient, Other (TRINO Moody) SHERI KAUFMAN MD May 16, 2024 23:04
[2024-05-17] VITALS (9 sets, daily range): BP systolic 141–151; BP diastolic 76–97; PULSE 83–104; RESP 18; TEMP 97.3–97.9; O2SAT 94–97
--- NOTE | 2024-05-17 05:41 | DVH ---
CHEST RADIOGRAPH Indication: fu Technique: Single frontal view of the chest was obtained Comparison: XY CHEST PORTABLE on DOS: 05/16/24, XY CHEST PORTABLE on DOS: 05/15/24, XY CHEST XRAY 1 VIEW on DOS: 04/16/24 IMPRESSION: There is cardiomegaly. Left lung appears clear. Patchy airspace opacity and small right pleural effu leann redemonstrated. Mild pulmonary vascular congestion. No pneumothorax.
[2024-05-17 06:04] LABS: Basophils # (auto) 0 10 ^3/uL (0-0.2); Eosinophils # (auto) 0 10 ^3/uL (0-0.8); Hematocrit 41.5 % (41.0-53.0); Hemoglobin 13.8 g/dL (13.5-17.5); Monocytes # (auto) 1.5 10 ^3/uL (0-1.3); Monocytes % (auto) 6.4 % (0.0-12.0)
[2024-05-17 06:07] LABS: Basophils % (auto) 0.1 % (0.0-2.0); Lymphocytes % (auto) 4.3 % (10.0-50.0); Mean Corpuscular Hemoglobin 26.4 pg (28.0-32.0); Mean Corpuscular Hgb Conc. 33.3 g/dL (32.0-36.0); Mean Corpuscular Volume 79.2 fL (80.0-100.0); Neutrophils # (auto) 20.8 10 ^3/uL (1.6-8.6); Neutrophils % (auto) 89.2 % (37.0-80.0); Platelet Count (auto) 514 10^3/uL (140-450); Red Blood Cells 5.23 10^6/uL (4.5-5.90); Red Cell Distribution Width 17.8 % (11.8-14.3); White Blood Cell 23.4 10^3/uL (4.4-10.8)
[2024-05-17 06:28] LABS: Albumin 3.8 g/dL (3.2-4.8); Anion Gap 10 (5-15); BUN/Creatinine Ratio 22.4 (10.0-20.0); Blood Urea Nitrogen 22 mg/dL (9-23); Calcium 9.5 mg/dL (8.7-10.4); Carbon Dioxide 23 mmol/L (20-31); Chloride 102 mmol/L (98-107); Potassium 4.5 mmol/L (3.5-5.1)
[2024-05-17 06:29] LABS: Bilirubin, Total 0.3 mg/dL (0.2-1.0)
[2024-05-17 06:42] LABS: Alanine Aminotransferase 112 U/L (7-40); Alkaline Phosphatase 178 U/L (46-116); Aspartate Aminotransferase 101 U/L (13-40); Glucose 230 mg/dL (74-106); Sodium 135 mmol/L (136-145)
--- NOTE | 2024-05-17 16:42 | DVHNC2 ---
Procedure - Ultrasound-guided RIGHT thoracentesis procedure note: Physician: Dr Rola Frausto Manager Diesel: Romy JAMESON Time out time: 1620 pm Patient medications and allergies reviewed. The risks and benefits of the procedure and the sedation options and risk were discussed with the patient's healthcare proxy. All questions were answered and informed consent was obtained. Patient identification and proposed procedure were verified prior to the procedure by the physician, and a nurse in the patient's room. The heart rate, respiratory rate, oxygen saturations, blood pressure, adequacy of pulmonary ventilation, and response to care were monitored throughout the procedure. The physical status of the patient was reassessed after the procedure. Date: 05/17/2024 Consent: Consent was obtained from patient prior to procedure. Indication, risks, and benefits were explained at length. Procedure summary: A time-out was performed and a chest x-ray was reviewed prior to procedure. The appropriate site was confirmed and marked. My hands were washed immediately prior to the procedure, I wore a surgical cap, mask with protective eyewear, sterile gown and sterile gloves throughout the procedure. The patient was prepped and draped in a sterile manner using chlorhexidine scrub after the appropriate level was percussed and confirmed by ultrasound. 1% lidocaine was used to anesthetize the skin, subcutaneous tissue, superior aspect of the rib periosteum and parietal pleura. A finder needle was then introduced over the superior aspect of the rib to locate the pleural fluid; sero-sanguinous fluid was aspirated. Thoracentesis needle was then introduced through the skin incision into the pleural space using negative aspiration pressure. The thoracentesis catheter was then threaded without difficulty. 1125 mL's of sero- sanguinous colored fluid were removed without difficulty. The catheter was then removed. No immediate complications were noted during the procedure. A postprocedure chest x-ray is pending at the time of this note. The pleural fluid will be sent for cultures and cytology. Estimated blood loss is less than 5 mL's. CPT: 84096 SHERI FRAUSTO MD May 17, 2024 16:42
--- NOTE | 2024-05-17 18:15 | DVH ---
CHEST RADIOGRAPH Indication: s/p right thoracentsis, r/o PNEUMOTHORAX Technique: Single frontal view of the chest was obtained Comparison: XY CHEST PORTABLE on DOS: 05/17/24, XY CHEST PORTABLE on DOS: 05/16/24, XY CHEST PORTABLE on DOS: 05/15/24 FINDINGS: Lines and Tubes: None Lungs: Right lower lobe airspace disease pleural effusion slightly improved from 05/16/2024 Pleura: No effusion. No pneumothorax. Cardiomediastinal contours: Unremarkable Bones: No acute osseous abnormality. IMPRESSION: 1. Slightly improved airspace disease and pleural effusion right lower lobe.
[2024-05-17 19:23] LABS: Body Fluid pH 7
--- NOTE | 2024-05-17 20:17 | DVHPN2 ---
Progress Note - Dictate Date Seen: May 17, 2024 Medical Necessity Reason Pt with a Central, PICC or Fol: No Subjective Patient seen and examined at bedside. Breathing comfortably on room air. Overnight events reviewed. vital signs Vital Sign Date Time Temp Pulse Resp B/P (MAP) Pulse Ox O2 Delivery O2 Flow Rate FiO2 05/17/24 17:47 83 18 151/87 05/17/24 17:29 97.3 94 97.3 05/17/24 10:00 Room Air* 0 21 Total Intake and Output 05/16/24 05/16/24 05/17/24 15:00 23:00 07:00 Intake Total 100 ml 1610 ml 2050 ml Output Total 1950 ml 400 ml 2300 ml Balance -1850 ml 1210 ml -250 ml medications Current Medications Medications Dose Ordered Sig/Ahsan Route Start Time Stop Time Status Last Admin Dose Admin Aspirin 81 mg DAILY PO 05/15/24 10:00 05/17/24 11:15 81 MG Sodium Chloride 10 ml Q8HR IV 05/15/24 06:00 05/17/24 14:07 10 ML Acetaminophen/ Hydrocodone Bitart 1 tab Q4HP PRN PO 05/15/24 03:00 05/16/24 06:06 1 TAB Ondansetron HCl 4 mg Q4HP PRN IV 05/15/24 03:00 05/17/24 11:31 4 MG Docusate Sodium 100 mg BIDPRN PRN PO 05/15/24 03:00 Morphine Sulfate 2 mg Q4HPRN PRN IV 05/15/24 03:00 05/17/24 17:17 2 MG Hydralazine HCl 10 mg Q6HP PRN IV 05/15/24 03:30 05/15/24 03:39 10 MG Carvedilol 3.125 mg Q12HR PO 05/15/24 10:00 05/17/24 11:15 3.125 MG Nitroglycerin 0.4 mg Q5MINP PRN SL 05/15/24 05:15 Morphine Sulfate 2 mg Q30M PRN IV 05/15/24 05:15 Famotidine 20 mg Q12HR IV 05/15/24 10:00 05/17/24 11:16 20 MG Furosemide 40 mg BIDD IV 05/15/24 18:00 05/17/24 17:17 40 MG Potassium Bicarbonate 25 meq BID PO 05/15/24 22:00 05/17/24 11:15 25 MEQ Methylprednisolone Sodium Succinate 40 mg BID IV 05/15/24 22:00 05/17/24 11:16 40 MG Levofloxacin/ Dextrose 100 ml @ 100 mls/hr DAILY IV 05/16/24 10:00 05/17/24 11:16 100 MLS/HR Sacubitril/ Valsartan 1 tab BID PO 05/15/24 22:00 05/17/24 11:16 1 TAB Empaglifozin 10 mg DAILY PO 05/16/24 10:00 05/17/24 11:15 10 MG Spironolactone 25 mg DAILY PO 05/16/24 10:00 05/17/24 11:16 25 MG Vancomycin HCl 0 ml @ 0 mls/hr UD IV 05/16/24 09:15 Vancomycin HCl 350 ml @ 200 mls/hr Q12H IV 05/16/24 11:00 05/17/24 12:53 200 MLS/HR objective Gen.: Patient lying in bed in no apparent distress. Breathing on room air. Head: Normocephalic, atraumatic. Eyes: EOMI/PERRLA. Ears: Normal hearing. Normal anatomy. Neck/trachea: Trachea midline, supple. Nose: Normal external anatomy. Mouth: Moist mucous membranes. Chest: Decreased air entry bilaterally. No wheezing or rhonchi. Cardiovascular: Positive S1, positive S2. Regular rate and rhythm. Abdomen: Positive bowel sounds in all 4 quadrants. Soft, non-tender, non- distended. : Deferred. Rectal: Deferred. Skin: Warm, dry. Intact. Extremities: 2+ radial pulses bilaterally. No lower extremity edema. Neuro: Awake, alert, oriented x3. No gross motor or sensory deficits. Cranial nerves II through XII intact. Gait not assessed. laboratory and microbiology Laboratory Tests 05/17/24 05:19 Test 05/17/24 05:19 Range/Units Serum Glucose 230 H 74-106 mg/dL Assessment/Plan Impression: Acute hypoxic respiratory failure Hemoptysis Pneumonia likely gram negative, right lung Morbid obesity BMI 41.4 Loculated left pleural effusion Atelectasis Acute on chronic CHF exacerbation Acute exacerbation of COPD Mediastinal lymphadenopathy Events: Remains on room air Supplemental oxygen PRN CXR reviewed, demonstrates small right pleural effusion. Limited chest ultrasound reveals loculated right pleural effusion Continue antibiotics Incentive spirometry Follow up pleural fluid cultures Pain control Avoid oversedation S/p right thoracentesis today - drained 1125 mL serosanguineous fluid from right pleural space. See separate procedure note for details. S/p right thoracentesis on 05/15/24 - 1.5 Liters removed by IR Labs and imaging reviewed. Rest of plan as noted below. Plan: CT of the chest report and images reviewed. No acute pulmonary embolism. Multifocal pneumonia. Large right pleural effusion, loculated superiorly and laterally. Supplemental oxygen PRN Titrate to keep o2 sat above 92% Continue Antibiotics Bronchodilators PRN IV steroids Diuresis to euvolemia. On Lasix twice daily. Monitor ins and outs. Monitor electrolytes. Supplement as necessary. Fluid restriction Salt restriction. Supplement potassium. Monitor closely. Consider Surgery consultation for decortication. If not a candidate, can consider chest tube placement with TPase course. GI Prophylaxis- Pepcid Prognosis: Poor given multiple comorbidities. Rest of plan per hospitalist and other consultants. Thank you MICHELLE Spence for allowing me to participate in this patient's care. Further recommendations will depend on patient's clinical course. Please do not hesitate to contact me if you have any questions or concerns. This medical document was created using an electronic medical record system with [employer] dictation system. Although this document has been carefully reviewed, there may still be some phonetic and typographical errors. These areas are purely typographical due to imperfections of the software programs, and do not reflect any compromise in the patient's medical care. Plan discussed with: Patient, Other (TRINO Carrasco) SHERI KAUFMAN MD May 17, 2024 20:17
[2024-05-17 20:18] LABS: Body Fluid Red Blood Cells 41284 CUMM (0-2000); Body Fluid White Blood Cells 4953 CUMM (0-200)
[2024-05-18] VITALS (9 sets, daily range): BP systolic 125–144; BP diastolic 77–98; PULSE 70–108; RESP 17–19; TEMP 97.4–98.7; O2SAT 92–97
--- NOTE | 2024-05-18 06:44 | DVH ---
EXAM: XR Chest, 1 View CLINICAL INDICATION: fu TECHNIQUE: Frontal view of the chest. COMPARISON: XY CHEST XRAY 1 VIEW on DOS: 05/17/24, XY CHEST PORTABLE on DOS: 05/17/24, XY CHEST PORTABL E on DOS: 05/16/24, XY CHEST PORTABLE on DOS: 05/15/24, XY CHEST XRAY 1 VIEW on DOS: 04/16/24 FINDINGS: LUNGS AND PLEURAL SPACES: Right basilar atelectasis or pneumonia. No pneumothorax. HEART: Unremarkable. No cardiomegaly. MEDIASTINUM: Unremarkable. Normal mediastinal contour. BONES/JOINTS: Unremarkable. No acute fracture. OTHER FINDINGS: . IMPRESSION: Right basilar atelectasis or pneumonia.
[2024-05-18 07:43] LABS: Basophils # (auto) 0 10 ^3/uL (0-0.2); Eosinophils # (auto) 0 10 ^3/uL (0-0.8); Hematocrit 45.2 % (41.0-53.0); Hemoglobin 14.7 g/dL (13.5-17.5); Lymphocytes # (auto) 1.3 10 ^3/uL (0.4-5.4); Mean Corpuscular Hgb Conc. 32.5 g/dL (32.0-36.0); Platelet Count (auto) 510 10^3/uL (140-450)
[2024-05-18 07:49] LABS: Mean Corpuscular Hemoglobin 25.7 pg (28.0-32.0); Mean Corpuscular Volume 79.1 fL (80.0-100.0); Monocytes # (auto) 1.4 10 ^3/uL (0-1.3); Monocytes % (auto) 7.9 % (0.0-12.0); Neutrophils # (auto) 15.4 10 ^3/uL (1.6-8.6); Neutrophils % (auto) 85.1 % (37.0-80.0); Red Blood Cells 5.71 10^6/uL (4.5-5.90); Red Cell Distribution Width 17.5 % (11.8-14.3); White Blood Cell 18.1 10^3/uL (4.4-10.8)
[2024-05-18 07:58] LABS: Anion Gap 7 (5-15); BUN/Creatinine Ratio 22.8 (10.0-20.0); Bilirubin, Total 0.3 mg/dL (0.2-1.0); Calcium 9.6 mg/dL (8.7-10.4); Carbon Dioxide 26 mmol/L (20-31); Chloride 101 mmol/L (98-107); Potassium 4.7 mmol/L (3.5-5.1)
[2024-05-18 08:14] LABS: Alanine Aminotransferase 152 U/L (7-40); Alkaline Phosphatase 195 U/L (46-116); Aspartate Aminotransferase 81 U/L (13-40); Blood Urea Nitrogen 26 mg/dL (9-23); Glucose 223 mg/dL (74-106); Sodium 134 mmol/L (136-145); Total Protein 8.3 g/dL (5.7-8.2)
[2024-05-18 10:19] LABS: Hepatitis B Core Total AB Negative (Negative)
[2024-05-18 11:20] LABS: Hepatitis A Total Antibody Positive (Negative); Hepatitis B Surface Antibody Negative (Negative); Hepatitis B Surface Antigen Negative (Negative); Hepatitis C Antibody Reactive (Negative)
--- NOTE | 2024-05-18 13:41 | DVHPN2 ---
Progress Note Date Seen: May 18, 2024 Medical Necessity Reason Pt with a Central, PICC or Fol: No Subjective Patient reports: No new complaints Review of Systems: HEENT:Normal, CVS:Normal, RESPIRATORY:Normal, GI:Normal, :Normal, MSK:Normal, NEURO:Normal Objective vital signs Vital Sign Date Time Temp Pulse Resp B/P (MAP) Pulse Ox O2 Delivery O2 Flow Rate FiO2 05/18/24 09:27 88 138/98 05/18/24 09:26 17 05/18/24 09:00 97.9 92 97.9 05/18/24 08:00 Room Air* 0 21 Total Intake and Output 05/17/24 05/17/24 05/18/24 15:00 23:00 07:00 Intake Total 1500 ml 1150 ml Output Total 1100 ml 4000 ml Balance 400 ml -2850 ml medications Current Medications Medications Dose Ordered Sig/Ahsan Route Start Time Stop Time Status Last Admin Dose Admin Aspirin 81 mg DAILY PO 05/15/24 10:00 05/18/24 09:27 81 MG Sodium Chloride 10 ml Q8HR IV 05/15/24 06:00 05/18/24 06:02 10 ML Acetaminophen/ Hydrocodone Bitart 1 tab Q4HP PRN PO 05/15/24 03:00 05/18/24 04:33 1 TAB Ondansetron HCl 4 mg Q4HP PRN IV 05/15/24 03:00 05/17/24 11:31 4 MG Docusate Sodium 100 mg BIDPRN PRN PO 05/15/24 03:00 Morphine Sulfate 2 mg Q4HPRN PRN IV 05/15/24 03:00 05/18/24 09:26 2 MG Hydralazine HCl 10 mg Q6HP PRN IV 05/15/24 03:30 05/15/24 03:39 10 MG Carvedilol 3.125 mg Q12HR PO 05/15/24 10:00 05/18/24 09:27 3.125 MG Nitroglycerin 0.4 mg Q5MINP PRN SL 05/15/24 05:15 Morphine Sulfate 2 mg Q30M PRN IV 05/15/24 05:15 Famotidine 20 mg Q12HR IV 05/15/24 10:00 05/18/24 09:27 20 MG Furosemide 40 mg BIDD IV 05/15/24 18:00 05/18/24 06:02 40 MG Potassium Bicarbonate 25 meq BID PO 05/15/24 22:00 05/18/24 09:28 25 MEQ Methylprednisolone Sodium Succinate 40 mg BID IV 05/15/24 22:00 05/18/24 09:27 40 MG Levofloxacin/ Dextrose 100 ml @ 100 mls/hr DAILY IV 05/16/24 10:00 05/18/24 09:26 100 MLS/HR Sacubitril/ Valsartan 1 tab BID PO 05/15/24 22:00 05/18/24 09:27 1 TAB Empaglifozin 10 mg DAILY PO 05/16/24 10:00 05/18/24 09:28 10 MG Spironolactone 25 mg DAILY PO 05/16/24 10:00 05/18/24 09:27 25 MG Vancomycin HCl 0 ml @ 0 mls/hr UD IV 05/16/24 09:15 Vancomycin HCl 350 ml @ 200 mls/hr Q12H IV 05/16/24 11:00 05/18/24 10:49 200 MLS/HR Examination: GENERAL:Normal, HEENT:Normal, NECK:Normal, LUNGS:Normal, LUNGS:Abnormal (decrease right side), CVS:Normal, ABDOMEN:Normal, MSK:Normal, SKIN:Normal, NEURO:Normal, :Normal laboratory and microbiology Laboratory Tests 05/18/24 06:13 Test 05/18/24 06:13 Range/Units Serum Glucose 223 H 74-106 mg/dL Microbiology Date/Time Source Procedure Growth Status 05/17/24 16:45 Pleural Fluid Gram Stain - Final Resulted 05/17/24 16:45 Pleural Fluid Body Fluid Culture - Preliminary Resulted 05/15/24 22:41 Nose MRSA Screen - Final Complete 05/15/24 05:20 Blood Blood Culture - Preliminary NO GROWTH AFTER 72 HOURS OF INCUBATION. Resulted Problem List/Assessment/Plan Problem List/Assessment/Plan #1 pneumonia with ? para pneumonic effusion ;iv antibiotics, s/p thoracentesis #2 acute on chronic systolic heart failure: cont lasix #3 drug abuse with amphetamines #4 hep C positive #5 transaminitis #6 a fib #7 h/o pe #8 copd advance care planning-- full code- time spent 19mins Plan discussed with: Patient My Orders My Orders Orders - LAKESHA CASON MD Procedure Category Date Status Time Complete Blood Count LAB 05/19/24 Verified 06:00 Comprehensive LAB 05/19/24 Verified Metabolic Panel 06:00 Date of Service: May 18, 2024 Billing Provider: LAKESHA CASON MD Common Visit Codes: [id number] INP/OBS CARE(HIGH) Secondary Visit Codes: [id number] CARE PLAN 30 MINUTES LAKESHA CASON MD May 18, 2024 13:41
--- NOTE | 2024-05-18 23:43 | DVHPN2 ---
Progress Note - Dictate Date Seen: May 18, 2024 Medical Necessity Reason Pt with a Central, PICC or Fol: No Subjective Patient seen and examined at bedside. Breathing comfortably on room air. Overnight events reviewed. vital signs Vital Sign Date Time Temp Pulse Resp B/P (MAP) Pulse Ox O2 Delivery O2 Flow Rate FiO2 05/18/24 21:34 108 144/86 05/18/24 21:00 98.5 19 96 98.5 05/18/24 10:00 Room Air 0.0 05/18/24 10:00 21 Total Intake and Output 05/17/24 05/17/24 05/18/24 15:00 23:00 07:00 Intake Total 1500 ml 1150 ml Output Total 1100 ml 4000 ml Balance 400 ml -2850 ml medications Current Medications Medications Dose Ordered Sig/Ahsan Route Start Time Stop Time Status Last Admin Dose Admin Aspirin 81 mg DAILY PO 05/15/24 10:00 05/18/24 09:27 81 MG Sodium Chloride 10 ml Q8HR IV 05/15/24 06:00 05/18/24 21:34 10 ML Acetaminophen/ Hydrocodone Bitart 1 tab Q4HP PRN PO 05/15/24 03:00 05/18/24 21:41 1 TAB Ondansetron HCl 4 mg Q4HP PRN IV 05/15/24 03:00 05/17/24 11:31 4 MG Docusate Sodium 100 mg BIDPRN PRN PO 05/15/24 03:00 Hydralazine HCl 10 mg Q6HP PRN IV 05/15/24 03:30 05/15/24 03:39 10 MG Carvedilol 3.125 mg Q12HR PO 05/15/24 10:00 05/18/24 21:34 3.125 MG Nitroglycerin 0.4 mg Q5MINP PRN SL 05/15/24 05:15 Morphine Sulfate 2 mg Q30M PRN IV 05/15/24 05:15 Furosemide 40 mg BIDD IV 05/15/24 18:00 05/18/24 17:33 40 MG Potassium Bicarbonate 25 meq BID PO 05/15/24 22:00 05/18/24 21:39 25 MEQ Levofloxacin/ Dextrose 100 ml @ 100 mls/hr DAILY IV 05/16/24 10:00 05/18/24 09:26 100 MLS/HR Sacubitril/ Valsartan 1 tab BID PO 05/15/24 22:00 05/18/24 21:34 1 TAB Empaglifozin 10 mg DAILY PO 05/16/24 10:00 05/18/24 09:28 10 MG Spironolactone 25 mg DAILY PO 05/16/24 10:00 05/18/24 09:27 25 MG Vancomycin HCl 0 ml @ 0 mls/hr UD IV 05/16/24 09:15 Vancomycin HCl 350 ml @ 200 mls/hr Q12H IV 05/16/24 11:00 05/18/24 10:49 200 MLS/HR objective Gen.: Patient lying in bed in no apparent distress. Breathing on room air. Head: Normocephalic, atraumatic. Eyes: EOMI/PERRLA. Ears: Normal hearing. Normal anatomy. Neck/trachea: Trachea midline, supple. Nose: Normal external anatomy. Mouth: Moist mucous membranes. Chest: Decreased air entry bilaterally. No wheezing or rhonchi. Cardiovascular: Positive S1, positive S2. Regular rate and rhythm. Abdomen: Positive bowel sounds in all 4 quadrants. Soft, non-tender, non- distended. : Deferred. Rectal: Deferred. Skin: Warm, dry. Intact. Extremities: 2+ radial pulses bilaterally. No lower extremity edema. Neuro: Awake, alert, oriented x3. No gross motor or sensory deficits. Cranial nerves II through XII intact. Gait not assessed. laboratory and microbiology Laboratory Tests 05/18/24 06:13 Test 05/18/24 06:13 Range/Units Serum Glucose 223 H 74-106 mg/dL Assessment/Plan Impression: Acute hypoxic respiratory failure Hemoptysis Pneumonia likely gram negative, right lung Morbid obesity BMI 41.4 Loculated left pleural effusion Atelectasis Acute on chronic CHF exacerbation Acute exacerbation of COPD Mediastinal lymphadenopathy Events: Remains on room air Supplemental oxygen PRN S/p right thoracentesis on 05/17/24 -drained 1125 mL's of sero-sanguinous fluid from right pleural space See separate procedure note for details. Follow up pleural fluid cultures and cytology. Continue antibiotics Incentive spirometry Pain control Avoid oversedation S/p right thoracentesis on 05/15/24 - 1.5 Liters removed by IR Labs and imaging reviewed. Rest of plan as noted below. Plan: CT of the chest report and images reviewed. No acute pulmonary embolism. Multifocal pneumonia. Large right pleural effusion, loculated superiorly and laterally. Supplemental oxygen PRN Titrate to keep o2 sat above 92% Continue antibiotics Bronchodilators PRN IV steroids Diuresis to euvolemia. On Lasix twice daily. Monitor ins and outs. Monitor electrolytes. Supplement as necessary. Fluid restriction Salt restriction. Supplement potassium. Monitor closely. Consider Surgery consultation for decortication. If not a candidate, can consider chest tube placement with TPase course. GI Prophylaxis- Pepcid Prognosis: Poor given multiple comorbidities. Rest of plan per hospitalist and other consultants. Thank you MICHELLE Spence for allowing me to participate in this patient's care. Further recommendations will depend on patient's clinical course. Please do not hesitate to contact me if you have any questions or concerns. This medical document was created using an electronic medical record system with [employer] dictation system. Although this document has been carefully reviewed, there may still be some phonetic and typographical errors. These areas are purely typographical due to imperfections of the software programs, and do not reflect any compromise in the patient's medical care. Plan discussed with: Patient, Other (TRINO Carr) SHERI KAUFMAN MD May 18, 2024 23:43
[2024-05-19] VITALS (8 sets, daily range): BP systolic 121–132; BP diastolic 53–81; PULSE 80–90; RESP 19–20; TEMP 97.3–98.5; O2SAT 94–100
[2024-05-19 07:12] LABS: Basophils # (auto) 0 10 ^3/uL (0-0.2); Eosinophils # (auto) 0.1 10 ^3/uL (0-0.8); Monocytes # (auto) 1.7 10 ^3/uL (0-1.3); Neutrophils # (auto) 10.6 10 ^3/uL (1.6-8.6)
[2024-05-19 07:15] LABS: Basophils % (auto) 0.1 % (0.0-2.0); Eosinophils % (auto) 0.9 % (0.0-7.0); Hematocrit 43.8 % (41.0-53.0); Hemoglobin 14.4 g/dL (13.5-17.5); Lymphocytes # (auto) 2.5 10 ^3/uL (0.4-5.4); Lymphocytes % (auto) 16.5 % (10.0-50.0); Mean Corpuscular Hemoglobin 25.9 pg (28.0-32.0); Mean Corpuscular Hgb Conc. 32.9 g/dL (32.0-36.0); Mean Corpuscular Volume 78.7 fL (80.0-100.0); Monocytes % (auto) 11.5 % (0.0-12.0); Platelet Count (auto) 500 10^3/uL (140-450); Red Blood Cells 5.57 10^6/uL (4.5-5.90); Red Cell Distribution Width 17.8 % (11.8-14.3); White Blood Cell 14.9 10^3/uL (4.4-10.8)
[2024-05-19 07:28] LABS: Anion Gap 7 (5-15); BUN/Creatinine Ratio 25.7 (10.0-20.0); Calcium 9.1 mg/dL (8.7-10.4); Carbon Dioxide 25 mmol/L (20-31); Chloride 102 mmol/L (98-107); Potassium 4.7 mmol/L (3.5-5.1); Total Protein 7.4 g/dL (5.7-8.2)
[2024-05-19 07:29] LABS: Bilirubin, Total 0.4 mg/dL (0.2-1.0)
[2024-05-19 07:31] LABS: Alanine Aminotransferase 170 U/L (7-40); Alkaline Phosphatase 204 U/L (46-116); Aspartate Aminotransferase 83 U/L (13-40); Blood Urea Nitrogen 27 mg/dL (9-23); Glucose 131 mg/dL (74-106); Sodium 134 mmol/L (136-145)
[2024-05-19 07:34] LABS: Albumin 3.5 g/dL (3.2-4.8)
--- NOTE | 2024-05-19 11:19 | DVHPN2 ---
Progress Note Date Seen: May 19, 2024 Medical Necessity Reason Pt with a Central, PICC or Fol: No Subjective Patient reports: No new complaints Review of Systems: HEENT:Normal, CVS:Normal, RESPIRATORY:Normal, GI:Normal, :Normal, MSK:Normal, NEURO:Normal Objective vital signs Vital Sign Date Time Temp Pulse Resp B/P (MAP) Pulse Ox O2 Delivery O2 Flow Rate FiO2 05/19/24 10:16 81 121/75 05/19/24 09:00 97.9 20 96 97.9 05/18/24 20:00 Room Air* 0 21 Total Intake and Output 05/18/24 05/18/24 05/19/24 15:00 23:00 07:00 Intake Total 450 ml 1200 ml 1810 ml Output Total 1000 ml 2900 ml 600 ml Balance -550 ml -1700 ml 1210 ml medications Current Medications Medications Dose Ordered Sig/Ahsan Route Start Time Stop Time Status Last Admin Dose Admin Aspirin 81 mg DAILY PO 05/15/24 10:00 05/19/24 10:17 81 MG Sodium Chloride 10 ml Q8HR IV 05/15/24 06:00 05/19/24 06:35 10 ML Acetaminophen/ Hydrocodone Bitart 1 tab Q4HP PRN PO 05/15/24 03:00 05/18/24 21:41 1 TAB Ondansetron HCl 4 mg Q4HP PRN IV 05/15/24 03:00 05/17/24 11:31 4 MG Docusate Sodium 100 mg BIDPRN PRN PO 05/15/24 03:00 Hydralazine HCl 10 mg Q6HP PRN IV 05/15/24 03:30 05/15/24 03:39 10 MG Carvedilol 3.125 mg Q12HR PO 05/15/24 10:00 05/19/24 10:16 3.125 MG Nitroglycerin 0.4 mg Q5MINP PRN SL 05/15/24 05:15 Morphine Sulfate 2 mg Q30M PRN IV 05/15/24 05:15 Furosemide 40 mg BIDD IV 05/15/24 18:00 05/19/24 06:35 40 MG Potassium Bicarbonate 25 meq BID PO 05/15/24 22:00 05/19/24 10:17 25 MEQ Levofloxacin/ Dextrose 100 ml @ 100 mls/hr DAILY IV 05/16/24 10:00 05/19/24 10:16 100 MLS/HR Sacubitril/ Valsartan 1 tab BID PO 05/15/24 22:00 05/19/24 10:17 1 TAB Empaglifozin 10 mg DAILY PO 05/16/24 10:00 05/19/24 10:17 10 MG Spironolactone 25 mg DAILY PO 05/16/24 10:00 05/19/24 10:16 25 MG Vancomycin HCl 0 ml @ 0 mls/hr UD IV 05/16/24 09:15 Vancomycin HCl 350 ml @ 200 mls/hr Q12H IV 05/16/24 11:00 05/19/24 00:11 200 MLS/HR Examination: GENERAL:Normal, HEENT:Normal, NECK:Normal, LUNGS:Normal, CVS:Normal, ABDOMEN:Normal, MSK:Normal, SKIN:Normal, NEURO:Normal, :Normal laboratory and microbiology Laboratory Tests 05/19/24 06:15 Test 05/19/24 06:15 Range/Units Serum Glucose 131 H 74-106 mg/dL Microbiology Date/Time Source Procedure Growth Status 05/17/24 16:45 Pleural Fluid Gram Stain - Final Resulted 05/17/24 16:45 Pleural Fluid Body Fluid Culture - Preliminary Resulted 05/15/24 22:41 Nose MRSA Screen - Final Complete 05/15/24 05:20 Blood Blood Culture - Preliminary NO GROWTH AFTER 72 HOURS OF INCUBATION. Resulted Problem List/Assessment/Plan Problem List/Assessment/Plan #1 pneumonia with ? para pneumonic effusion ;iv antibiotics, s/p thoracentesis #2 acute on chronic systolic heart failure: cont lasix #3 drug abuse with amphetamines #4 hep C positive #5 transaminitis #6 a fib #7 h/o pe #8 copd advance care planning-- full code- time spent 19mins Plan discussed with: Patient My Orders My Orders Orders - LAKESHA CASON MD Procedure Category Date Status Time Initiate Vte HERBERTH 05/19/24 In Process Prophylaxis 00:18 Furosemide Injection PHA 05/20/24 Transmitted (Lasix Injection) 10:00 Potassium Effervesent PHA 05/20/24 Transmitted Tab (Klor-Con/Ef) 10:[address] 05/20/24 Transmitted 08:00 Complete Blood Count LAB 05/20/24 Verified 06:00 Comprehensive LAB 05/20/24 Verified Metabolic Panel 06:00 Date of Service: May 19, 2024 Billing Provider: LAKESHA CASON MD Common Visit Codes: [id number] INP/OBS CARE(HIGH) Secondary Visit Codes: [id number] CARE PLAN 30 MINUTES LAKESHA CASON MD May 19, 2024 11:19
[2024-05-19 16:07] LABS: Protein, Body Fluid 5.2 g/dL (.)
[2024-05-19 16:07] LABS: Protein, Body Fluid 4.9 g/dL (.)
[2024-05-20] VITALS (10 sets, daily range): BP systolic 89–137; BP diastolic 46–84; PULSE 45–90; RESP 16–21; TEMP 97.7–98.4; O2SAT 92–100
[2024-05-20 07:23] LABS: Basophils # (auto) 0 10 ^3/uL (0-0.2); Eosinophils # (auto) 0.3 10 ^3/uL (0-0.8); Hemoglobin 14.8 g/dL (13.5-17.5); Lymphocytes # (auto) 2.5 10 ^3/uL (0.4-5.4); Lymphocytes % (auto) 16.3 % (10.0-50.0); Neutrophils # (auto) 10.4 10 ^3/uL (1.6-8.6); Platelet Count (auto) 512 10^3/uL (140-450); Red Cell Distribution Width 17.6 % (11.8-14.3)
[2024-05-20 07:24] LABS: Albumin 3.5 g/dL (3.2-4.8); Anion Gap 8 (5-15); Aspartate Aminotransferase 34 U/L (13-40); BUN/Creatinine Ratio 28.2 (10.0-20.0); Bilirubin, Total 0.4 mg/dL (0.2-1.0); Calcium 8.8 mg/dL (8.7-10.4); Carbon Dioxide 24 mmol/L (20-31); Chloride 102 mmol/L (98-107); Potassium 4.2 mmol/L (3.5-5.1); Total Protein 7.4 g/dL (5.7-8.2)
[2024-05-20 07:25] LABS: Alanine Aminotransferase 117 U/L (7-40); Alkaline Phosphatase 173 U/L (46-116); Blood Urea Nitrogen 29 mg/dL (9-23); Glucose 158 mg/dL (74-106); Sodium 134 mmol/L (136-145)
[2024-05-20 07:26] LABS: Basophils % (auto) 0.2 % (0.0-2.0); Eosinophils % (auto) 1.9 % (0.0-7.0); Mean Corpuscular Hgb Conc. 32.9 g/dL (32.0-36.0); Mean Corpuscular Volume 78.9 fL (80.0-100.0); Monocytes # (auto) 1.8 10 ^3/uL (0-1.3); Monocytes % (auto) 12.3 % (0.0-12.0); Neutrophils % (auto) 69.3 % (37.0-80.0)
--- NOTE | 2024-05-20 08:58 | DVH ---
CT CHEST WITHOUT CONTRAST INDICATION: right effusion EXAM DATE: 05/20/2024 08:26 AM COMPARISON: 05/15/24 RADIATION DOSE: CTDIvol: 30.04 mGy, DLP: 1152.63 mGy*cm PROCEDURE: Helical CT images were obtained of the chest without intravenous contrast. Sagittal and c oronal reconstructions are provided. ADDITIONAL IMAGES / REFORMATS: None All CT scans at this medical facility are performed using dose modulation techniques as appropriate t o a performed exam including the following: Automated exposure control was utilized; adjustment of th e MA and/or KV according to patient size; and use of iterative reconstruction technique. FINDINGS: Bones: Scattered degenerative changes are noted. Visualized Abdomen: Normal. Chest Wall: Normal. Soft tissues: Normal. Mediastinum: Normal. Heart: Coronary artery calcifications are noted. Vessels: Normal. Lymph Nodes: Normal. Pleura: Loculated right pleural effusion. Airways: Normal. Lung: Right lower lobe consolidation. Other: None IMPRESSION: Right lower lobe consolidation could be pneumonia. Loculated right pleural effusion, decreased to sury or with a small locule of gas could be from prior instrumentation.
[2024-05-20] MEDS: FUROSEMIDE 20 MG/2 ML VIAL IV SCH (09:39)
[2024-05-20] MEDS: POTASSIUM EFFERVESENT TAB 25 MEQ PO SCH (09:40)
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
[2024-05-20] MEDS: MIDAZOLAM HCL 2MG/2ML 2ml VIAL (1mg/ml) ONE (11:32)
[2024-05-20] MEDS: LIDOCAINE 2%HCL (LOCAL ANESTH.) INJ 10ml MDV ONE (11:37)
--- NOTE | 2024-05-20 15:18 | DVH ---
CT CHEST WITHOUT CONTRAST, HISTORY: CHEST TUBE for pneumonia with loculated effusion. COMPARISON: CT CHEST WITHOUT CONTRAST on DOS: 05/20/24 PROCEDURE: Informed consent was obtained. The patient was placed right side up on the CT scanner. IV sedation was administered. The right pleural effusion was localized under CT scan and the overlying s kin prepped with chlorhexidine which was allowed to dry and draped in the usual sterile fashion and i nfiltrated with Xylocaine. Time out was performed. With US guidance, a 19-gauge centesis needle shauna ter was advanced via trans-pleural approach into the right effusion. Following aspiration of a small amount of fluid, a 0.035 wire was advanced into the pleural space. Placement was confirmed with CT sc an. After serial dilatation, a 8 Martiniquais multipurpose pigtail drain was placed into the collection. Ap proximately 40 cc of cloudy serosanguinous fluid was aspirated, with specimen sent for appropriate la boratory/cytology/laboratory and cytology evaluation. The drain was sutured at the skin surface and c onnected to A Pleur Evac drainage canister. No immediate complication was noted. Post procedure CT im aging through the drain site was obtained. DLP = 1510 mGy-cm. SEDATION: Dr. Theresa Alex was personally responsible for the administration of moderate sedation during the procedure performed, including the use of an independent trained observer who had no other duties during the procedure. The drugs utilized were IV fentanyl and versed (see nursing log for details). The total time of supervision by the attending physician was approximately 30 minutes. FINDINGS: Limited CT scan of through the chest demonstrates a complex pleural fluid effusion. Collect ion appears loculated. Post procedure scan shows pigtail drain within the collection . No immediate c omplication was identified. IMPRESSION: US/ CT guided placement of 8 Martiniquais pigtail drain into a loculated right pleural effusion.. PLAN: Connect to low wall suction.
[2024-05-20] MEDS: fentaNYL CITRATE 100 MCG/2 ML VL ONE (16:28)
[2024-05-20] MEDS: MORPHINE SULFATE INJ 2 MG/ml SYRG IV PRN ×2 (16:33→23:06)
[2024-05-21] VITALS (9 sets, daily range): BP systolic 103–133; BP diastolic 37–71; PULSE 46–102; RESP 16–22; TEMP 97.4–98.7; O2SAT 95–98
[2024-05-21 07:23] LABS: Anion Gap 8 (5-15); Carbon Dioxide 23 mmol/L (20-31); Chloride 102 mmol/L (98-107); Potassium 4.2 mmol/L (3.5-5.1)
[2024-05-21 07:24] LABS: Calcium 8.9 mg/dL (8.7-10.4)
[2024-05-21 07:26] LABS: Sodium 133 mmol/L (136-145)
[2024-05-21 07:29] LABS: BUN/Creatinine Ratio 27.8 (10.0-20.0)
[2024-05-21 07:32] LABS: Red Blood Cells 5.55 10^6/uL (4.5-5.90)
[2024-05-21 07:34] LABS: Blood Urea Nitrogen 27 mg/dL (9-23); Glucose 137 mg/dL (74-106)
[2024-05-21 07:36] LABS: Hematocrit 44.2 % (41.0-53.0); Hemoglobin 14.1 g/dL (13.5-17.5); Mean Corpuscular Hemoglobin 25.5 pg (28.0-32.0); Mean Corpuscular Volume 79.6 fL (80.0-100.0); Platelet Count (auto) 442 10^3/uL (140-450); Red Cell Distribution Width 17.9 % (11.8-14.3); White Blood Cell 13.4 10^3/uL (4.4-10.8)
[2024-05-21 07:45] LABS: Band Neutrophils % (manual) 0; Basophils % (manual) 0 (0.0-2.0); Blast Cells 0; Promyelocytes % 0; Reactive Lymphocytes 0
[2024-05-21] MEDS: FUROSEMIDE 40 MG TAB PO SCH (10:03)
[2024-05-21 10:35] LABS: Eosinophils % (manual) 2 (0-7); Lymphocytes % (manual) 9 (10.0-50.0); Metamyelocytes % 2; Monocytes % (manual) 12 (0-12); Myelocytes % 1; Platelet Estimate Adequate
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
[2024-05-22] VITALS (69 sets, daily range): BP systolic 78–224; BP diastolic 45–132; PULSE 45–135; RESP 10–25; TEMP 97.8–98.8; O2SAT 94–100
[2024-05-22] MEDS ORDERED: MIDAZOLAM HCL 2MG/2ML 2ml VIAL (1mg/ml) ONE ×2 (06:26→07:23)
[2024-05-22] MEDS ORDERED: fentaNYL CITRATE 100 MCG/2 ML VL ONE ×2 (06:26→07:15)
[2024-05-22] MEDS ORDERED: MORPHINE SULF PF 5 MG/10 ML VIAL ONE (06:26)
[2024-05-22 06:56] LABS: Anion Gap 7 (5-15); Carbon Dioxide 25 mmol/L (20-31); Chloride 102 mmol/L (98-107); Potassium 4.5 mmol/L (3.5-5.1)
[2024-05-22 06:57] LABS: Sodium 134 mmol/L (136-145)
[2024-05-22 06:58] LABS: Calcium 9.1 mg/dL (8.7-10.4)
[2024-05-22 06:59] LABS: INR 0.99 (0.9-1.15); Prothrombin Time 10.5 sec (9.3-11.8)
[2024-05-22 07:03] LABS: BUN/Creatinine Ratio 25.8 (10.0-20.0); Basophils # (auto) 0 10 ^3/uL (0-0.2); Basophils % (auto) 0.3 % (0.0-2.0); Eosinophils # (auto) 0.2 10 ^3/uL (0-0.8); Eosinophils % (auto) 1.6 % (0.0-7.0); Hematocrit 41.1 % (41.0-53.0); Hemoglobin 13.7 g/dL (13.5-17.5); Lymphocytes % (auto) 14.6 % (10.0-50.0); Mean Corpuscular Hemoglobin 26.1 pg (28.0-32.0); Mean Corpuscular Hgb Conc. 33.2 g/dL (32.0-36.0); Mean Corpuscular Volume 78.6 fL (80.0-100.0); Monocytes # (auto) 1.9 10 ^3/uL (0-1.3); Monocytes % (auto) 13.9 % (0.0-12.0); Neutrophils # (auto) 9.4 10 ^3/uL (1.6-8.6); Neutrophils % (auto) 69.6 % (37.0-80.0); Platelet Count (auto) 437 10^3/uL (140-450); Red Blood Cells 5.23 10^6/uL (4.5-5.90); Red Cell Distribution Width 17.8 % (11.8-14.3); White Blood Cell 13.6 10^3/uL (4.4-10.8)
[2024-05-22 07:04] LABS: Blood Urea Nitrogen 25 mg/dL (9-23); Glucose 141 mg/dL (74-106)
[2024-05-22] MEDS ORDERED: ETOMIDATE (2MG/ML) 20ML VIAL IV ONE (07:14)
[2024-05-22] MEDS: LIDOCAINE W/ EPINEPHRINE 1% 20ML VIAL ONE (09:00)
[2024-05-22] MEDS: BUPIVACAINE 0.5% P/F INJ 10 ML VIAL ONE (09:00)
[2024-05-22] MEDS: SOD CHL 0.45% WITH 20MEQ KCL 1,000 ML IV SCH (09:15)
[2024-05-22] MEDS: MORPHINE SULFATE 4 MG/ML SYR/VIAL ONE (09:16)
--- NOTE | 2024-05-22 09:22 | DVHINCON2 ---
DATE OF CONSULTATION: 05/22/2024 HISTORY OF PRESENT ILLNESS: The patient is a 43-year-old obese male, habitually uses methamphetamine. The patient has extensive medical history with atrial fibrillation, congestive heart failure, chronic obstructive pulmonary disease, hypertension, history of pulmonary embolism. The patient has ejection fraction of 20%, presenting to the Emergency Room with shortness of breath and confusion. There is a multifocal pneumonia in the right lung with a pleural effusion, which is loculated and has not been evacuated by Radiology placed catheter. REVIEW OF SYSTEMS: Has no significant contributory value in 12 systems review as outlined above. PHYSICAL EXAMINATION: GENERAL: The patient short of breath, oriented, on supplemental oxygen. HEENT: Pupils are equal, round, react to light equally. Sclerae nonicteric. Extraocular motion is intact. Uvula midline. Trachea midline. Carotids are full without bruits. Jugular veins are collapsed. HEART: Regular rate and rhythm. CHEST: The patient has visible dyspnea with use of accessory muscles. The patient is without CVA tenderness. ABDOMEN: No abdominal tenderness. No palpable masses or organomegalies. EXTREMITIES: No peripheral vascular insufficiency. LABORATORY EVALUATION: The patient has leukocytosis on admission 18.1, today 13.6. There is no left shift. His platelet count is normal. His H and H shows a degree of dehydration and has been stable. The patient's PT is 10.5 and INR is 0.99. The patient's most recent chemistry shows slight hyponatremia, dehydration evidenced by elevated BUN, normal creatinine. The patient's liver enzymes slightly elevated, latest value AST 34, ALT 117, alkaline phosphatase 173. Bilirubin is normal. The patient's imaging was done by means of multiple studies. The initial was CT angiography, which demonstrated no evidence of pulmonary embolization. The patient subsequently had a thoracentesis, which removed 1.5 liters of pleural fluid. The patient demonstrated retention of right pleural effusion, which is loculated on CT scans, not responding to Radiology placed pigtail catheters into the pleural cavity. ASSESSMENT AND PLAN: Due to the patient's shortness of breath, some of which was contributed by his pleural effusion and probable empyema, a thoracotomy is planned to evacuate the infected fluid from the right chest cavity and treat his empyema urgently. The patient is a high risk patient with multiple comorbidities. His cardiac history is as outlined above. The patient is aware of high risks. All questions were answered. Barron Cade MD PF/CHRISTOPH TID: [id number] RECEIPT: [id number]
[2024-05-22] MEDS: PROPOFOL 100 ML IV ONE (09:32)
[2024-05-22] MEDS: MIDAZOLAM DRIP 50 mg/50mL 50 ML IV SCH (09:38)
[2024-05-22] MEDS: fentaNYL Drip 2500mCg/250mlNS 250 ML IV SCH (09:39)
--- NOTE | 2024-05-22 09:45 | DVHOP ---
DATE OF SURGERY: 05/22/2024 PREOPERATIVE DIAGNOSIS: Empyema, right chest loculated effusion. SURGEON: Barron Cade MD STOVE REFINISHER: Doni Braun. ANESTHESIA: General endotracheal. ANESTHESIOLOGIST: Dr. Singh. POSTOPERATIVE DIAGNOSES: Empyema, morbid obesity. DESCRIPTION OF PROCEDURE: Right chest surgery was performed under general endotracheal anesthesia, with the patient on the operating room table with the right chest facing upward, lateral decubitus position with down axilla protected on an axillary roll, knees and elbow by pillows, body was padded and secured with a beanbag on the operating room table. The chest was prepped and draped with Betadine. A 12 cm long incision was made on the posterolateral chest. The incision was deepened with electrocautery. The operation was made quite difficult by the patient's morbid obesity. Muscle was divided with electrocautery. The chest was entered through the fifth interspace. The intercostal muscles divided with electrocautery. The pleura was incised and approximately 400 mL of fluid was evacuated. Samples sent for cultures and sensitivities. Subsequently, following thorough exploration of the cavity of the chest, the lung was palpated. There were no palpable lesions within the lung. There was no pleural peel to decorticate. Adhesions between the lung and the anterior chest wall were lysed sharply and bluntly and subsequently following thorough irrigation of the chest cavity with Betadine containing saline solution, which was aspirated at the end of the procedure, a size 40 chest tube was placed into the thoracic cavity and the chest wall was closed using pericostal [id number] #1 sutures. Muscle was approximated using #1 double stranded PDS sutures. Subcutaneous tissues approximated using 2-0 Monocryl sutures. Skin was approximated using metallic vi. The patient remained stable throughout the procedure, left the operating room following an accurate needle and sponge count. Chest x-ray was ordered and is pending at the time of this dictation. Barron Cade MD PF/CHRISTOPH TID: [id number] RECEIPT: [id number]
[2024-05-22] MEDS: MORPHINE SULFATE 4 MG/ML SYR/VIAL IV ONE (10:15)
[2024-05-22] MEDS ORDERED: METOPROLOL TARTRATE 1MG/1ML-5ML VIAL IV PRN (10:30)
[2024-05-22] MEDS: PROPOFOL 100 ML IV SCH (10:30)
--- NOTE | 2024-05-22 10:37 | DVH ---
EXAM: XY CHEST PORTABLE HISTORY: POST OR INTUBATION COMPARISON: XY CHEST PORTABLE on DOS: 05/18/24, XY CHEST XRAY 1 VIEW on DOS: 05/17/24, XY CHEST PORTABLE on DOS: 05/17/24, XY CHEST PORTABLE on DOS: 05/16/24, XY CHEST PORTABLE on DOS: 05/15/24 TECHNIQUE: Portable AP view of the chest was performed. FINDINGS: Endotracheal tube is identified with its tip 5.8 cm above the caryl, above the level of th e clavicular heads. Right subclavian central line is identified with its tip in the right atrium. The re is a right chest thoracostomy tube with its tip folded back on itself in the right upper chest. Th ere is diffuse prominence of the interstitial markings. There are bilateral mid to lower lung effusi ons and infiltrates, greater on the right. No visible residual pneumothorax. The heart is enlarged. There are skin vi overlying the right hemithorax. IMPRESSION: 1. Mechanical ventilation with endotracheal tube tip 5.8 cm above the caryl. Recommend advancing 3 cm then repeating chest x-ray. 2. Right chest thoracostomy tube identified with its tip folded back on itself, without visualization of residual pneumothorax. 3. Right subclavian central line tip is in the right atrium. 4. Cardiomegaly, diffuse interstitial prominence, and bilateral lung base infiltrates and effusions which may be due to CHF, atelectasis, and/ or pneumonia.
[2024-05-22] MEDS: SOD CHL 0.45% WITH 20MEQ KCL 1,000 ML IV ONE (11:00)
[2024-05-22 11:09] LABS: Base Excess -4.8 mmol/L (-2.0-3.0)
[2024-05-22] MEDS: NOREPINEPHRINE 8 MG/250ML KIT 250 ML IV SCH (11:45)
--- NOTE | 2024-05-22 11:47 | DVHPN2 ---
Subjective Patient chemically sedated Reviewed: Care Plan, H&P, Labs, Medications, Previous Orders, Radiology, Other Changes from previous H/P or p: No Changes General: Per HPI Respiratory: Shortness of breath Objective Vitals Vital Signs Date Time Temp Pulse Resp B/P (MAP) Pulse Ox O2 Delivery O2 Flow Rate FiO2 05/22/24 10:15 112 18 110/81 05/22/24 09:30 97 100 05/22/24 05:00 97.8 97.8 05/21/24 20:00 Room Air* 0 Intake/Output Intake and Output 05/22/24 07:00 Intake Total 1460 ml Output Total 1500 ml Balance -40 ml Intake Oral 650 ml IV Total 810 ml Output Urine Total 1500 ml General Appearance: mild distress Lungs: Other Chest/Breasts: Other (Right pleural chest tube with serosanguineous fluid) Cardiovascular: Regular rate, Normal S1, Normal S2, Other (Sinus rhythm) Abdomen: Normal bowel sounds, Soft, No tenderness Genitourinary: No Apparent Abnormalities (Sultana catheter) Musculoskeletal: Other (No motor movement) Extremities: Other Medications Current Medications Medications Dose Ordered Sig/Ahsan Route Start Time Stop Time Status Last Admin Dose Admin Aspirin 81 mg DAILY PO 05/15/24 10:00 05/21/24 10:02 81 MG Sodium Chloride 10 ml Q8HR IV 05/15/24 06:00 05/22/24 06:00 10 ML Acetaminophen/ Hydrocodone Bitart 1 tab Q4HP PRN PO 05/15/24 03:00 05/22/24 05:35 1 TAB Ondansetron HCl 4 mg Q4HP PRN IV 05/15/24 03:00 05/17/24 11:31 4 MG Docusate Sodium 100 mg BIDPRN PRN PO 05/15/24 03:00 Hydralazine HCl 10 mg Q6HP PRN IV 05/15/24 03:30 05/15/24 03:39 10 MG Carvedilol 3.125 mg Q12HR PO 05/15/24 10:00 05/21/24 21:57 3.125 MG Nitroglycerin 0.4 mg Q5MINP PRN SL 05/15/24 05:15 Morphine Sulfate 2 mg Q30M PRN IV 05/15/24 05:15 05/20/24 23:06 2 MG Levofloxacin/ Dextrose 100 ml @ 100 mls/hr DAILY IV 05/16/24 10:00 05/21/24 10:01 100 MLS/HR Sacubitril/ Valsartan 1 tab BID PO 05/15/24 22:00 05/21/24 21:56 1 TAB Empaglifozin 10 mg DAILY PO 05/16/24 10:00 05/21/24 10:02 10 MG Spironolactone 25 mg DAILY PO 05/16/24 10:00 05/21/24 10:02 25 MG Vancomycin HCl 0 ml @ 0 mls/hr UD IV 05/16/24 09:15 Vancomycin HCl 350 ml @ 200 mls/hr Q12H IV 05/16/24 11:00 05/21/24 21:58 200 MLS/HR Potassium Bicarbonate 25 meq DAILY PO 05/20/24 10:00 05/21/24 10:01 25 MEQ Furosemide 40 mg DAILY PO 05/21/24 10:00 05/21/24 10:03 40 MG Morphine Sulfate 2 mg Q4HPRN PRN IV 05/20/24 16:15 05/22/24 02:02 2 MG Midazolam HCl 50 ml @ 1 mls/hr Q24H IV 05/22/24 09:00 05/22/24 09:38 1 MLS/HR Fentanyl Citrate 250 ml @ 2.5 mls/hr Q24H IV 05/22/24 09:00 05/22/24 09:39 2.5 MLS/HR Potassium Chloride/Sodium Chloride 1,000 ml @ 100 mls/hr Q10H IV 05/22/24 09:15 05/22/24 09:15 100 MLS/HR Propofol 100 ml @ 4.266 mls/ hr [id number] IV 05/22/24 10:30 Metoprolol Tartrate 5 mg Q6HPRN PRN IV 05/22/24 10:30 Laboratory Results Laboratory Tests 05/22/24 05:36 Chemistry Test 05/22/24 05:36 Calcium Level 9.1 mg/dL (8.7-10.4) Coagulation Test 05/22/24 05:36 Prothrombin Time 10.5 sec (9.3-11.8) Prothrombin Time INR 0.99 (0.9-1.15) Activated Partial Thromboplast Time 28.0 SEC (24.5-34.5) Urinalysis Test 05/15/24 03:30 Urine Color Yellow (Yellow) Urine Clarity Clear (Clear) Urine pH 6.0 (5.0-9.0) Urine Specific [place] 1.030 (1.001-1.035) Urine Protein Trace (Negative) H Urine Ketones Negative (Negative) Urine Blood Negative /uL (Negative) Urine Nitrite Negative (Negative) Urine Bilirubin Negative (Negative) Urine Urobilinogen Normal mg/dL (Negative) Urine Leukocyte Esterase Negative /uL (Negative) Urine RBC 1 /hpf (0 - 3) Urine Microscopic WBC /HPF (0-3) Urine Squamous Epithelial Cells None seen /hpf (<5) Urine Bacteria None seen /hpf (None Seen) Urine Glucose Normal mg/dL (Normal) Blood Gas Results Test 05/22/24 11:01 Arterial Blood pH 7.260 (7.350-7.450) FiO2 % 100.0 Microbiology Microbiology Date/Time Source Procedure Growth Status 05/17/24 16:45 Pleural Fluid Gram Stain - Final Resulted 05/17/24 16:45 Pleural Fluid Body Fluid Culture - Preliminary Resulted 05/15/24 22:41 Nose MRSA Screen - Final Complete 05/15/24 05:20 Blood Blood Culture - Final NO GROWTH AFTER 5 DAYS OF INCUBATION. Complete Labs and/or images reviewed: Labs reviewed by me, Image(s) reviewed by me Assessment/Plan Assessment/Plan Impression: -acute hypoxic respiratory failure -sepsis -community-acquired pneumonia, Gram-positive/Gram-negative etiology -right parapneumonic effusion, loculated. Status post right thoracotomy -amphetamine abuse -obesity -acute on chronic decompensated systolic heart failure Plan: -continue current ventilator settings -continue sedation with propofol, Versed, fentanyl -PUD, DVT prophylaxis -hold beta-blanquita, LALIT inhibitor -start tube feeding -continue antibiotic therapy with Levaquin and vancomycin -repeat labs, chest x-ray, ABG in a.m. Critical care time spent with patient discussing and formulating plan of care: 40 minutes. This does not include time spent performing procedures. This medical document was created using an electronic medical record system with [employer] system. Although this document has been carefully reviewed, there may still be some phonetic and typographical errors. These areas are purely typographical due to imperfections of the software programs, and do not reflect any compromise in the patient's medical care. Plan discussed with: Patient, Other (RN) My Orders Orders - DANAE ANDRES NP Procedure Category Date Status Time Basic Metabolic Panel LAB 05/23/24 Verified 04:00 Complete Blood Count LAB 05/23/24 Verified 04:00 Chest Portable XY 05/23/24 Logged 04:00 Abg W/ Co-Ox RT 05/23/24 Logged 04:00 Abg W/ Co-Ox RT 05/23/24 Logged 04:00 Norepinephrine Drip PHA 05/22/24 Verified Levophed 11:45 Nutritional PHA 05/22/24 Verified Supplements (Jevity 11:45 Date of Service: May 22, 2024 Billing Provider: DANAE ANDRES NP Common Visit Codes: [id number] CARE 30-74 MIN DANAE ANDRES NP May 22, 2024 11:47
[2024-05-22] MEDS: ALBUMIN 25% 50 ML IV ONE (14:30)
[2024-05-22] MEDS: SODIUM CHLORIDE 0.9% 1,000 ML IV ONE (14:52)
--- NOTE | 2024-05-22 15:10 | ECG ---
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
--- NOTE | 2024-05-22 15:35 | ECG ---
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
[2024-05-23] VITALS (110 sets, daily range): BP systolic 87–168; BP diastolic 32–77; PULSE 64–94; RESP 10–31; TEMP 97.7–100.4; O2SAT 93–100
[2024-05-23] MEDS: Jevity 1.2 Cal/Fiber 1 Liter GT SCH (02:30)
[2024-05-23 04:05] LABS: Basophils # (auto) 0 10 ^3/uL (0-0.2); Eosinophils # (auto) 0 10 ^3/uL (0-0.8); Lymphocytes # (auto) 1.1 10 ^3/uL (0.4-5.4); Neutrophils # (auto) 13.5 10 ^3/uL (1.6-8.6)
[2024-05-23 04:09] LABS: Basophils % (auto) 0.2 % (0.0-2.0); Chloride 106 mmol/L (98-107); Hematocrit 38.2 % (41.0-53.0); Hemoglobin 12.2 g/dL (13.5-17.5); Lymphocytes % (auto) 6.8 % (10.0-50.0); Mean Corpuscular Hemoglobin 25.4 pg (28.0-32.0); Mean Corpuscular Hgb Conc. 31.9 g/dL (32.0-36.0); Mean Corpuscular Volume 79.7 fL (80.0-100.0); Monocytes # (auto) 1.3 10 ^3/uL (0-1.3); Monocytes % (auto) 8.3 % (0.0-12.0); Neutrophils % (auto) 84.7 % (37.0-80.0); Platelet Count (auto) 444 10^3/uL (140-450); Potassium 4.6 mmol/L (3.5-5.1); Red Blood Cells 4.79 10^6/uL (4.5-5.90); Red Cell Distribution Width 17.8 % (11.8-14.3)
[2024-05-23 04:10] LABS: Anion Gap 6 (5-15); Calcium 9.3 mg/dL (8.7-10.4); Carbon Dioxide 24 mmol/L (20-31)
[2024-05-23 04:15] LABS: BUN/Creatinine Ratio 30.1 (10.0-20.0)
[2024-05-23 04:18] LABS: Blood Urea Nitrogen 25 mg/dL (9-23); Glucose 153 mg/dL (74-106); Sodium 136 mmol/L (136-145)
--- NOTE | 2024-05-23 05:47 | DVH ---
CHEST RADIOGRAPH Indication: pna, tube placement Technique: Single frontal view of the chest was obtained COMPARISON: XY CHEST PORTABLE on DOS: 05/22/24, XY CHEST PORTABLE on DOS: 05/18/24, XY CHEST XRAY 1 VIE W on DOS: 05/17/24, XY CHEST PORTABLE on DOS: 05/17/24, XY CHEST PORTABLE on DOS: 05/16/24 FINDINGS: Lines and Tubes: Endotracheal tube, enteric catheter, right chest port and right chest tube in satisf actory position. Lungs: Congestion Pleura: No effusion. No pneumothorax. Cardiomediastinal contours: Cardiomegaly Bones: Unremarkable IMPRESSION: Lines and tubes in satisfactory position. No significant interval change.
[2024-05-23 07:56] LABS: Base Excess -4.4 mmol/L (-2.0-3.0)
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
[2024-05-23 11:51] LABS: Basophils # (auto) 0 10 ^3/uL (0-0.2); Basophils % (auto) 0.3 % (0.0-2.0); Eosinophils # (auto) 0 10 ^3/uL (0-0.8); Eosinophils % (auto) 0.1 % (0.0-7.0); Hematocrit 38.5 % (41.0-53.0); Hemoglobin 11.9 g/dL (13.5-17.5); Lymphocytes # (auto) 1.1 10 ^3/uL (0.4-5.4); Lymphocytes % (auto) 7.8 % (10.0-50.0); Mean Corpuscular Hgb Conc. 30.9 g/dL (32.0-36.0); Mean Corpuscular Volume 80.9 fL (80.0-100.0); Monocytes # (auto) 1.7 10 ^3/uL (0-1.3); Monocytes % (auto) 12.2 % (0.0-12.0); Neutrophils # (auto) 11.3 10 ^3/uL (1.6-8.6); Neutrophils % (auto) 79.6 % (37.0-80.0); Platelet Count (auto) 430 10^3/uL (140-450); Red Blood Cells 4.76 10^6/uL (4.5-5.90); Red Cell Distribution Width 17.7 % (11.8-14.3); White Blood Cell 14.2 10^3/uL (4.4-10.8)
--- NOTE | 2024-05-23 12:48 | DVHPN2 ---
Subjective Patient chemically sedated Reviewed: Care Plan, H&P, Labs, Medications, Previous Orders, Radiology, Other Changes from previous H/P or p: No Changes General: Per HPI Objective Vitals Vital Signs Date Time Temp Pulse Resp B/P (MAP) Pulse Ox O2 Delivery O2 Flow Rate FiO2 05/23/24 12:14 75 16 97/47 (64) 98 40 05/23/24 11:45 98.8 209.8 05/23/24 10:00 Mechanical Ventilator+ 05/21/24 20:00 0 Intake/Output Intake and Output 05/23/24 07:00 Intake Total 5658.500 ml Output Total 2950 ml Balance 2708.500 ml IV Total 5618.500 ml Tube Feeding 40 ml Output Urine Total 2900 ml Chest Tube Drainage Total 50 ml General Appearance: mild distress Lungs: Other Chest/Breasts: Other (Right pleural chest tube with serosanguineous fluid) Cardiovascular: Regular rate, Normal S1, Normal S2, Other (Sinus rhythm) Abdomen: Normal bowel sounds, Soft, No tenderness Genitourinary: No Apparent Abnormalities (Sultana catheter) Musculoskeletal: Other (No motor movement) Extremities: Other Skin: Dry, Intact Medications Current Medications Medications Dose Ordered Sig/Ahsan Route Start Time Stop Time Status Last Admin Dose Admin Sodium Chloride 10 ml Q8HR IV 05/15/24 06:00 05/23/24 05:30 10 ML Ondansetron HCl 4 mg Q4HP PRN IV 05/15/24 03:00 05/17/24 11:31 4 MG Docusate Sodium 100 mg BIDPRN PRN PO 05/15/24 03:00 Hydralazine HCl 10 mg Q6HP PRN IV 05/15/24 03:30 05/15/24 03:39 10 MG Nitroglycerin 0.4 mg Q5MINP PRN SL 05/15/24 05:15 Levofloxacin/ Dextrose 100 ml @ 100 mls/hr DAILY IV 05/16/24 10:00 05/23/24 09:57 100 MLS/HR Empaglifozin 10 mg DAILY PO 05/16/24 10:00 05/23/24 09:58 10 MG Spironolactone 25 mg DAILY PO 05/16/24 10:00 05/23/24 10:10 25 MG Vancomycin HCl 0 ml @ 0 mls/hr UD IV 05/16/24 09:15 Vancomycin HCl 350 ml @ 200 mls/hr Q12H IV 05/16/24 11:00 05/22/24 23:02 200 MLS/HR Morphine Sulfate 2 mg Q4HPRN PRN IV 05/20/24 16:15 05/22/24 02:02 2 MG Midazolam HCl 50 ml @ 1 mls/hr Q24H IV 05/22/24 09:00 05/23/24 10:03 15 MLS/HR Fentanyl Citrate 250 ml @ 2.5 mls/hr Q24H IV 05/22/24 09:00 05/23/24 02:31 27.5 MLS/HR Potassium Chloride/Sodium Chloride 1,000 ml @ 100 mls/hr Q10H IV 05/22/24 09:15 05/23/24 05:30 100 MLS/HR Propofol 100 ml @ 4.266 mls/ hr [id number] IV 05/22/24 10:30 05/23/24 12:04 38.394 MLS/HR Metoprolol Tartrate 5 mg Q6HPRN PRN IV 05/22/24 10:30 Norepinephrine Bitartrate 250 ml @ 3.75 mls/hr Q24H IV 05/22/24 11:45 05/23/24 05:29 7.5 MLS/HR Enteral Nutritional Formula 1,000 ml 30ML/HR GT 05/22/24 11:45 05/23/24 02:30 1,000 ML Albuterol 2.5 mg Q6HR NEB 05/23/24 12:00 Ipratropium [place] 0.5 mg Q6HR NEB 05/23/24 12:00 Furosemide 40 mg DAILY IV 05/24/24 10:00 Dexmedetomidine HCl 400 mcg/ Dextrose 100 ml @ 7.235 mls/ hr [id number] IV 05/23/24 12:00 Laboratory Results Laboratory Tests 05/23/24 03:37 05/23/24 11:30 Chemistry Test 05/23/24 03:37 Calcium Level 9.3 mg/dL (8.7-10.4) Urinalysis Test 05/15/24 03:30 Urine Color Yellow (Yellow) Urine Clarity Clear (Clear) Urine pH 6.0 (5.0-9.0) Urine Specific [place] 1.030 (1.001-1.035) Urine Protein Trace (Negative) H Urine Ketones Negative (Negative) Urine Blood Negative /uL (Negative) Urine Nitrite Negative (Negative) Urine Bilirubin Negative (Negative) Urine Urobilinogen Normal mg/dL (Negative) Urine Leukocyte Esterase Negative /uL (Negative) Urine RBC 1 /hpf (0 - 3) Urine Microscopic WBC /HPF (0-3) Urine Squamous Epithelial Cells None seen /hpf (<5) Urine Bacteria None seen /hpf (None Seen) Urine Glucose Normal mg/dL (Normal) Blood Gas Results Test 05/23/24 07:32 Arterial Blood pH 7.265 (7.350-7.450) FiO2 % 40.0 Microbiology Microbiology Date/Time Source Procedure Growth Status 05/17/24 16:45 Pleural Fluid Gram Stain - Final Resulted 05/17/24 16:45 Pleural Fluid Body Fluid Culture - Preliminary Resulted 05/15/24 22:41 Nose MRSA Screen - Final Complete 05/15/24 05:20 Blood Blood Culture - Final NO GROWTH AFTER 5 DAYS OF INCUBATION. Complete Labs and/or images reviewed: Labs reviewed by me, Image(s) reviewed by me Assessment/Plan Assessment/Plan Impression: -acute hypoxic respiratory failure -sepsis -community-acquired pneumonia, Gram-positive/Gram-negative etiology -right parapneumonic effusion, loculated. Status post right thoracotomy -amphetamine abuse -obesity -acute on chronic decompensated systolic heart failure Plan: Events: Patient now on vasopressor therapy. Chest x-ray with pulmonary vascular congestion. FiO2 at 40%. ABG revealing hypoventilation. -vent settings: Increase respiratory rate to 16 -add bronchodilators q.6 hours -IV diuresis -continue vasopressor therapy -spontaneous breathing trial per pulmonology -continue sedation with propofol, Versed, fentanyl -PUD, DVT prophylaxis -hold beta-blanquita, LALIT inhibitor -start tube feeding -continue antibiotic therapy with Levaquin and vancomycin -repeat labs, chest x-ray, ABG in a.m. Critical care time spent with patient discussing and formulating plan of care: 40 minutes. This does not include time spent performing procedures. This medical document was created using an electronic medical record system with [employer] system. Although this document has been carefully reviewed, there may still be some phonetic and typographical errors. These areas are purely typographical due to imperfections of the software programs, and do not reflect any compromise in the patient's medical care. Plan discussed with: Patient, Other (RN) My Orders Orders - DANAE ANDRES NP Procedure Category Date Status Time Ventilator Orders RT 05/23/24 Transmitted 08:12 Albuterol Medneb PHA 05/23/24 In Process (Ventolin Medneb) 12:00 Ipratropium Medneb PHA 05/23/24 In Process (Atrovent Medneb) 12:00 Basic Metabolic Panel LAB 05/24/24 Verified 05:00 Basic Metabolic Panel LAB 05/25/24 Verified 05:00 Basic Metabolic Panel LAB 05/26/24 Verified 05:00 Complete Blood Count LAB 05/24/24 Verified 05:00 Complete Blood Count LAB 05/25/24 Verified 05:00 Complete Blood Count LAB 05/26/24 Verified 05:00 Chest Portable XY 05/24/24 Logged 05:00 Chest Portable XY 05/25/24 Logged 05:00 Chest Portable XY 05/26/24 Logged 05:00 Abg W/ Co-Ox RT 05/24/24 Logged 04:00 Furosemide Injection PHA 05/24/24 In Process (Lasix Injection) 10:00 Date of Service: May 23, 2024 Billing Provider: DANAE ANDRES NP Common Visit Codes: 40064-[id number] CARE 30-74 MIN DANAE ANDRES NP May 23, 2024 12:48
[2024-05-23] MEDS: IPRATROPIUM BROM 0.5 MG/2.5ML INH SOL NEB SCH (14:25)
[2024-05-23] MEDS: ALBUTEROL SULF 2.5 MG/0.5ML(0.5%) NEB SOLN NEB SCH (14:25)
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
[2024-05-23] MEDS: BUPIVACAINE 0.5% MPF INJ 30ML SDV IJ ONE (23:30)
[2024-05-23] MEDS: levoFLOXacin 500MG 100 ML IV ONE (23:30)
[2024-05-23] MEDS: LIDOCAINE W/ EPINEPHRINE 1% 20ML VIAL ONE (23:30)
[2024-05-24] VITALS (108 sets, daily range): BP systolic 86–206; BP diastolic 43–120; PULSE 74–99; RESP 6–26; TEMP 99–101.3; O2SAT 89–100
[2024-05-24 03:42] LABS: Basophils # (auto) 0 10 ^3/uL (0-0.2); Basophils % (auto) 0.3 % (0.0-2.0); Eosinophils # (auto) 0.1 10 ^3/uL (0-0.8); Red Blood Cells 4.48 10^6/uL (4.5-5.90); White Blood Cell 12.7 10^3/uL (4.4-10.8)
[2024-05-24 03:44] LABS: Eosinophils % (auto) 0.5 % (0.0-7.0); Hematocrit 35.9 % (41.0-53.0); Hemoglobin 11.4 g/dL (13.5-17.5); Lymphocytes # (auto) 2.4 10 ^3/uL (0.4-5.4); Lymphocytes % (auto) 18.8 % (10.0-50.0); Mean Corpuscular Hemoglobin 25.4 pg (28.0-32.0); Mean Corpuscular Hgb Conc. 31.8 g/dL (32.0-36.0); Monocytes # (auto) 1.9 10 ^3/uL (0-1.3); Neutrophils # (auto) 8.3 10 ^3/uL (1.6-8.6); Neutrophils % (auto) 65.4 % (37.0-80.0); Nucleated Red Blood Cells % 0.1 %; Platelet Count (auto) 367 10^3/uL (140-450); Red Cell Distribution Width 17.4 % (11.8-14.3)
[2024-05-24 04:03] LABS: Chloride 104 mmol/L (98-107); Potassium 4.4 mmol/L (3.5-5.1); Sodium 136 mmol/L (136-145)
[2024-05-24 04:04] LABS: Anion Gap 7 (5-15); Carbon Dioxide 25 mmol/L (20-31)
[2024-05-24 04:10] LABS: BUN/Creatinine Ratio 24.7 (10.0-20.0)
[2024-05-24 04:12] LABS: Blood Urea Nitrogen 24 mg/dL (9-23); Glucose 115 mg/dL (74-106)
--- NOTE | 2024-05-24 05:59 | DVH ---
CHEST RADIOGRAPH Indication: pna Technique: Single frontal view of the chest was obtained Comparison: XY CHEST PORTABLE on DOS: 05/23/24, XY CHEST PORTABLE on DOS: 05/22/24, XY CHEST PORTABLE o n DOS: 05/18/24 IMPRESSION: Heart is enlarged. Moderate pulmonary vascular congestion. Small bilateral pleural effusions. Suppo rt lines and tubes appear similar in position. Postsurgical changes on the right.
--- NOTE | 2024-05-24 07:39 | DVHPN2 ---
Subjective Patient chemically sedated Reviewed: Care Plan, H&P, Labs, Medications, Previous Orders, Radiology, Other Changes from previous H/P or p: No Changes General: Per HPI Objective Vitals Vital Signs Date Time Temp Pulse Resp B/P (MAP) Pulse Ox O2 Delivery O2 Flow Rate FiO2 05/24/24 07:00 140/59 05/24/24 06:14 91 17 97 30 05/24/24 05:30 100.0 212.0 05/24/24 04:00 Mechanical Ventilator+ Intake/Output Intake and Output 05/24/24 07:00 Intake Total 3883.638 ml Output Total 2830 ml Balance 1053.638 ml Intake Oral 60 ml IV Total 3558.638 ml Tube Feeding 265 ml Output Urine Total 2750 ml Chest Tube Drainage Total 80 ml General Appearance: moderate distress, Other (Chemically sedated) HEENT: Atraumatic, PERRLA Lungs: Other Chest/Breasts: Other (Right pleural chest tube with serosanguineous fluid) Cardiovascular: Regular rate, Normal S1, Normal S2, Other (Sinus rhythm) Abdomen: Normal bowel sounds, Soft, No tenderness Genitourinary: No Apparent Abnormalities (Sultana catheter) Musculoskeletal: Other (No motor movement) Extremities: Other Skin: Dry, Intact Psych/Mental Status: Other (Unable to assess) Medications Current Medications Medications Dose Ordered Sig/Ahsan Route Start Time Stop Time Status Last Admin Dose Admin Sodium Chloride 10 ml Q8HR IV 05/15/24 06:00 05/24/24 07:01 10 ML Ondansetron HCl 4 mg Q4HP PRN IV 05/15/24 03:00 05/17/24 11:31 4 MG Docusate Sodium 100 mg BIDPRN PRN PO 05/15/24 03:00 Hydralazine HCl 10 mg Q6HP PRN IV 05/15/24 03:30 05/15/24 03:39 10 MG Nitroglycerin 0.4 mg Q5MINP PRN SL 05/15/24 05:15 Levofloxacin/ Dextrose 100 ml @ 100 mls/hr DAILY IV 05/16/24 10:00 05/23/24 09:57 100 MLS/HR Empaglifozin 10 mg DAILY PO 05/16/24 10:00 05/23/24 09:58 10 MG Spironolactone 25 mg DAILY PO 05/16/24 10:00 05/23/24 10:10 25 MG Vancomycin HCl 0 ml @ 0 mls/hr UD IV 05/16/24 09:15 Vancomycin HCl 350 ml @ 200 mls/hr Q12H IV 05/16/24 11:00 05/23/24 23:34 200 MLS/HR Morphine Sulfate 2 mg Q4HPRN PRN IV 05/20/24 16:15 05/22/24 02:02 2 MG Midazolam HCl 50 ml @ 1 mls/hr Q24H IV 05/22/24 09:00 05/24/24 04:05 13 MLS/HR Fentanyl Citrate 250 ml @ 2.5 mls/hr Q24H IV 05/22/24 09:00 05/24/24 06:18 25 MLS/HR Propofol 100 ml @ 4.266 mls/ hr [id number] IV 05/22/24 10:30 05/24/24 06:17 34.128 MLS/HR Metoprolol Tartrate 5 mg Q6HPRN PRN IV 05/22/24 10:30 Norepinephrine Bitartrate 250 ml @ 3.75 mls/hr Q24H IV 05/22/24 11:45 05/23/24 05:29 7.5 MLS/HR Albuterol 2.5 mg Q6HR NEB 05/23/24 12:00 05/24/24 06:15 2.5 MG Ipratropium [place] 0.5 mg Q6HR NEB 05/23/24 12:00 05/24/24 06:15 0.5 MG Furosemide 40 mg DAILY IV 05/24/24 10:00 Dexmedetomidine HCl 400 mcg/ Dextrose 100 ml @ 7.235 mls/ hr [id number] IV 05/23/24 12:00 Potassium Chloride/Sodium Chloride 1,000 ml @ 75 mls/hr [id number] IV 05/24/24 07:30 UNV Enteral Nutritional Formula 1,000 ml 50ML/HR GT 05/24/24 07:30 UNV Dexmedetomidine HCl 400 mcg/ Dextrose 100 ml @ 7.235 mls/ hr [id number] IV 05/24/24 07:30 UNV Laboratory Results Laboratory Tests 05/24/24 03:09 Chemistry Test 05/24/24 03:09 Calcium Level 9.0 mg/dL (8.7-10.4) Urinalysis Test 05/15/24 03:30 Urine Color Yellow (Yellow) Urine Clarity Clear (Clear) Urine pH 6.0 (5.0-9.0) Urine Specific [place] 1.030 (1.001-1.035) Urine Protein Trace (Negative) H Urine Ketones Negative (Negative) Urine Blood Negative /uL (Negative) Urine Nitrite Negative (Negative) Urine Bilirubin Negative (Negative) Urine Urobilinogen Normal mg/dL (Negative) Urine Leukocyte Esterase Negative /uL (Negative) Urine RBC 1 /hpf (0 - 3) Urine Microscopic WBC /HPF (0-3) Urine Squamous Epithelial Cells None seen /hpf (<5) Urine Bacteria None seen /hpf (None Seen) Urine Glucose Normal mg/dL (Normal) Microbiology Microbiology Date/Time Source Procedure Growth Status 05/22/24 10:26 Trachea Gram Stain - Final Resulted 05/22/24 10:26 Trachea Respiratory Culture - Preliminary Resulted 05/22/24 08:30 Pleural Fluid Gram Stain - Final Resulted 05/22/24 08:30 Pleural Fluid Anaerobic Culture - Preliminary Resulted 05/22/24 08:30 Pleural Fluid Aerobic Culture - Preliminary Resulted 05/15/24 05:20 Blood Blood Culture - Final NO GROWTH AFTER 5 DAYS OF INCUBATION. Complete Labs and/or images reviewed: Labs reviewed by me, Image(s) reviewed by me Assessment/Plan Assessment/Plan Impression: -acute hypoxic respiratory failure -sepsis -community-acquired pneumonia, Gram-positive/Gram-negative etiology -right parapneumonic effusion, loculated. Status post right thoracotomy -amphetamine abuse -obesity -acute on chronic decompensated systolic heart failure Plan: Events: Patient heavily sedated. Attempted to awaken patient with noted "Belly Breathing". -Pulmonary Consult: Vent management -bronchodilators q.6 hours -IV diuresis, decrease IVF -Levophed currently off -spontaneous breathing trial per pulmonology -Precedex for CPAP trial -PUD, DVT prophylaxis -Increase tube feeding to 50ml -Start Bowel Regimen -continue antibiotic therapy with Levaquin and vancomycin -repeat labs, chest x-ray, ABG in a.m. Critical care time spent with patient discussing and formulating plan of care: 40 minutes. This does not include time spent performing procedures. This medical document was created using an electronic medical record system with [employer] system. Although this document has been carefully reviewed, there may still be some phonetic and typographical errors. These areas are purely typographical due to imperfections of the software programs, and do not reflect any compromise in the patient's medical care. Plan discussed with: Patient, Other (RN) My Orders Orders - DANAE ANDRES NP Procedure Category Date Status Time Ventilator Orders RT 05/23/24 Transmitted 08:12 Albuterol Medneb PHA 05/23/24 In Process (Ventolin Medneb) 12:00 Ipratropium Medneb PHA 05/23/24 In Process (Atrovent Medneb) 12:00 Basic Metabolic Panel LAB 05/25/24 Verified 05:00 Basic Metabolic Panel LAB 05/26/24 Verified 05:00 Complete Blood Count LAB 05/25/24 Verified 05:00 Complete Blood Count LAB 05/26/24 Verified 05:00 Chest Portable XY 05/24/24 Resulted 05:00 Chest Portable XY 05/25/24 Logged 05:00 Chest Portable XY 05/26/24 Logged 05:00 Abg W/ Co-Ox RT 05/24/24 Logged 04:00 Furosemide Injection PHA 05/24/24 In Process (Lasix Injection) 10:00 Sod Chl 0.45% With PHA 05/24/24 Logged 20meq Kcl 07:30 Nutritional PHA 05/24/24 Logged Supplements (Jevity 07:30 D5w 5% (Dextrose 5%) PHA 05/24/24 Logged W/Dexmedetomidine 07:30 Date of Service: May 24, 2024 Billing Provider: DANAE ANDRES NP Common Visit Codes: [id number] CARE 30-74 MIN DANAE ANDRES NP May 24, 2024 07:39
[2024-05-24 07:45] LABS: Base Excess -2.7 mmol/L (-2.0-3.0)
[2024-05-24] MEDS: SOD CHL 0.45% WITH 20MEQ KCL 1,000 ML IV SCH (07:51)
[2024-05-24] MEDS: LACTULOSE 20Gm/30ML SOLN GT SCH (10:07)
[2024-05-24] MEDS: FUROSEMIDE 40 MG/4 ML VIAL IV SCH (10:07)
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
[2024-05-25] VITALS (108 sets, daily range): BP systolic 88–141; BP diastolic 36–72; PULSE 64–92; RESP 11–27; TEMP 98.4–99.7; O2SAT 91–100
[2024-05-25 03:53] LABS: Basophils # (auto) 0 10 ^3/uL (0-0.2); Eosinophils # (auto) 0.1 10 ^3/uL (0-0.8); Lymphocytes # (auto) 1.1 10 ^3/uL (0.4-5.4); Lymphocytes % (auto) 12.6 % (10.0-50.0); Monocytes # (auto) 1.3 10 ^3/uL (0-1.3)
[2024-05-25 03:55] LABS: Anion Gap 7 (5-15); Carbon Dioxide 26 mmol/L (20-31); Chloride 104 mmol/L (98-107); Potassium 3.9 mmol/L (3.5-5.1); Sodium 137 mmol/L (136-145)
[2024-05-25 03:56] LABS: Calcium 8.8 mg/dL (8.7-10.4)
[2024-05-25 03:59] LABS: Basophils % (auto) 0.3 % (0.0-2.0); Eosinophils % (auto) 1.3 % (0.0-7.0); Hematocrit 31.9 % (41.0-53.0); Hemoglobin 10.6 g/dL (13.5-17.5); Mean Corpuscular Hemoglobin 26.3 pg (28.0-32.0); Mean Corpuscular Hgb Conc. 33.1 g/dL (32.0-36.0); Mean Corpuscular Volume 79.4 fL (80.0-100.0); Monocytes % (auto) 15.6 % (0.0-12.0); Neutrophils % (auto) 70.2 % (37.0-80.0); Platelet Count (auto) 333 10^3/uL (140-450); Red Blood Cells 4.02 10^6/uL (4.5-5.90); White Blood Cell 8.6 10^3/uL (4.4-10.8)
[2024-05-25 04:01] LABS: BUN/Creatinine Ratio 21.5 (10.0-20.0); Blood Urea Nitrogen 17 mg/dL (9-23)
[2024-05-25 04:11] LABS: Glucose 116 mg/dL (74-106)
--- NOTE | 2024-05-25 05:19 | DVH ---
EXAM: XR Chest, 1 View CLINICAL INDICATION: pna TECHNIQUE: Frontal view of the chest. COMPARISON: XY CHEST PORTABLE on DOS: 05/24/24, XY CHEST PORTABLE on DOS: 05/23/24, XY CHEST PORTABLE on DOS: 05/22/24, XY CHEST PORTABLE on DOS: 05/18/24, XY CHEST XRAY 1 VIEW on DOS: 05/17/24 FINDINGS: LUNGS AND PLEURAL SPACES: Mild congestive heart failure, unchanged. Small bilateral pleural effusi ons.. No consolidation. No pneumothorax. HEART: Unremarkable. No cardiomegaly. MEDIASTINUM: Unremarkable. Normal mediastinal contour. BONES/JOINTS: Unremarkable. No acute fracture. TUBES, LINES AND DEVICES: Stable tubes and went. OTHER FINDINGS: . IMPRESSION: Mild congestive heart failure, unchanged.
[2024-05-25 08:16] LABS: Base Excess -0.8 mmol/L (-2.0-3.0)
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
[2024-05-25] MEDS: ENOXAPARIN SOD 40 MG/0.4 ML SYRINGE SC SCH (10:21)
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
[2024-05-26] VITALS (107 sets, daily range): BP systolic 99–209; BP diastolic 44–97; PULSE 66–109; RESP 14–31; TEMP 98.6–100.9; O2SAT 90–100
[2024-05-26 03:56] LABS: Basophils # (auto) 0 10 ^3/uL (0-0.2); Basophils % (auto) 0.4 % (0.0-2.0); Eosinophils # (auto) 0.2 10 ^3/uL (0-0.8); Eosinophils % (auto) 2.4 % (0.0-7.0); Hematocrit 33.4 % (41.0-53.0); Hemoglobin 10.9 g/dL (13.5-17.5); Lymphocytes % (auto) 13.2 % (10.0-50.0); Mean Corpuscular Hemoglobin 25.6 pg (28.0-32.0); Mean Corpuscular Hgb Conc. 32.7 g/dL (32.0-36.0); Mean Corpuscular Volume 78.1 fL (80.0-100.0); Monocytes # (auto) 1.1 10 ^3/uL (0-1.3); Monocytes % (auto) 15.1 % (0.0-12.0); Neutrophils % (auto) 68.9 % (37.0-80.0); Platelet Count (auto) 342 10^3/uL (140-450); Red Blood Cells 4.27 10^6/uL (4.5-5.90); White Blood Cell 7.3 10^3/uL (4.4-10.8)
[2024-05-26 04:08] LABS: Anion Gap 6 (5-15); Calcium 9.1 mg/dL (8.7-10.4); Carbon Dioxide 29 mmol/L (20-31); Chloride 105 mmol/L (98-107); Potassium 3.5 mmol/L (3.5-5.1); Sodium 140 mmol/L (136-145)
[2024-05-26 04:14] LABS: BUN/Creatinine Ratio 17.4 (10.0-20.0); Blood Urea Nitrogen 12 mg/dL (9-23); Glucose 97 mg/dL (74-106)
--- NOTE | 2024-05-26 05:21 | DVH ---
EXAM: XR Chest, 1 View CLINICAL INDICATION: PNA TECHNIQUE: Frontal view of the chest. COMPARISON: XY CHEST PORTABLE on DOS: 05/25/24, XY CHEST PORTABLE on DOS: 05/24/24, XY CHEST PORTABLE on DOS: 05/23/24, XY CHEST PORTABLE on DOS: 05/22/24, XY CHEST PORTABLE on DOS: 05/18/24 FINDINGS: LUNGS AND PLEURAL SPACES: Pulmonary congestion and edema. Pneumonia cannot be excluded. Right pleu ral effusion. No pneumothorax. HEART: Unremarkable. No cardiomegaly. MEDIASTINUM: Unremarkable. Normal mediastinal contour. BONES/JOINTS: Unremarkable. No acute fracture. TUBES, LINES AND DEVICES: Stable tubes. OTHER FINDINGS: . IMPRESSION: 1. Pulmonary congestion and edema. Pneumonia cannot be excluded. 2. Right pleural effusion. No pneumothorax.
[2024-05-26 07:40] LABS: Base Excess -0.8 mmol/L (-2.0-3.0)
[2024-05-26] MEDS: ACETAMINOPHEN 650 mg PER 20.3 mL UD PO PRN (10:03)
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
[2024-05-26] MEDS: MEROPENEM 1GM IVPB 50 ML IV ONE (15:45)
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
[2024-05-26] MEDS ORDERED: METOCLOPRAMIDE HCL 5MG/ml INJ 2ml VIAL IV PRN (18:00)
[2024-05-26] MEDS: Jevity 1.2 Cal/Fiber 1 Liter GT SCH (18:04)
[2024-05-26] MEDS: METOCLOPRAMIDE HCL 5MG/ml INJ 2ml VIAL IV ONE (18:07)
[2024-05-26] MEDS: hydrALAZINE HCL 20 MG/ML VL ONE (20:14)
[2024-05-26] MEDS: MEROPENEM 1GM IVPB 50 ML IV SCH (21:41)
[2024-05-27] VITALS (107 sets, daily range): BP systolic 85–211; BP diastolic 44–104; PULSE 72–99; RESP 12–35; TEMP 98.1–100.4; O2SAT 97–100
[2024-05-27 03:56] LABS: Basophils # (auto) 0 10 ^3/uL (0-0.2); Basophils % (auto) 0.5 % (0.0-2.0); Eosinophils # (auto) 0.1 10 ^3/uL (0-0.8); Eosinophils % (auto) 1.5 % (0.0-7.0); Hematocrit 33.3 % (41.0-53.0); Hemoglobin 10.9 g/dL (13.5-17.5); Lymphocytes % (auto) 11.4 % (10.0-50.0); Mean Corpuscular Hemoglobin 25.6 pg (28.0-32.0); Mean Corpuscular Hgb Conc. 32.8 g/dL (32.0-36.0); Mean Corpuscular Volume 78.1 fL (80.0-100.0); Monocytes # (auto) 1.2 10 ^3/uL (0-1.3); Monocytes % (auto) 13.9 % (0.0-12.0); Neutrophils # (auto) 6.3 10 ^3/uL (1.6-8.6); Neutrophils % (auto) 72.7 % (37.0-80.0); Platelet Count (auto) 366 10^3/uL (140-450); Red Blood Cells 4.27 10^6/uL (4.5-5.90); White Blood Cell 8.7 10^3/uL (4.4-10.8)
[2024-05-27 04:07] LABS: Alanine Aminotransferase 29 U/L (7-40); Anion Gap 6 (5-15); BUN/Creatinine Ratio 22.4 (10.0-20.0); Bilirubin, Total 0.6 mg/dL (0.2-1.0); Blood Urea Nitrogen 13 mg/dL (9-23); Calcium 9.1 mg/dL (8.7-10.4); Carbon Dioxide 29 mmol/L (20-31); Chloride 105 mmol/L (98-107); Glucose 99 mg/dL (74-106); Sodium 140 mmol/L (136-145); Total Protein 6.7 g/dL (5.7-8.2)
[2024-05-27 04:14] LABS: Albumin 3.1 g/dL (3.2-4.8); Alkaline Phosphatase 221 U/L (46-116); Aspartate Aminotransferase 42 U/L (13-40); Potassium 3.4 mmol/L (3.5-5.1)
--- NOTE | 2024-05-27 04:43 | DVH ---
CHEST RADIOGRAPH Indication: PNA Technique: Single frontal view of the chest was obtained Comparison: XY CHEST PORTABLE on DOS: 05/26/24, XY CHEST PORTABLE on DOS: 05/25/24, XY CHEST PORTABLE o n DOS: 05/24/24 FINDINGS: Lines and Tubes: Endotracheal, enteric tube and right chest tube are unchanged in position right cent ral venous catheter terminates in the right atrium. Lungs: Bilateral airspace disease similar to prior study. Pleura: Right pleural effusion. No pneumothorax. Cardiomediastinal contours: Stable cardiomegaly. Bones: No acute osseous abnormality. IMPRESSION: 1. No significant interval change.
[2024-05-27] MEDS: POTASSIUM CHL 20MEQ/50ML 50 ML IV SCH (06:31)
--- NOTE | 2024-05-27 07:47 | DVH ---
EXAM: XR Chest, 1 View CLINICAL INDICATION: SBO TECHNIQUE: Frontal view of the chest. COMPARISON: None FINDINGS: LUNGS AND PLEURAL SPACES: Unremarkable. No consolidation. No pneumothorax. HEART: Unremarkable. No cardiomegaly. MEDIASTINUM: Unremarkable. Normal mediastinal contour. BONES/JOINTS: Unremarkable. No acute fracture. UPPER ABDOMEN: Fecal retention in the colon consistent with constipation. OTHER FINDINGS: . IMPRESSION: Fecal retention in the colon consistent with constipation.
[2024-05-27 08:00] LABS: Base Excess 2.9 mmol/L (-2.0-3.0)
[2024-05-27] MEDS ORDERED: POTASSIUM CHL 20MEQ/100ML 100 ML IV ONE (08:00)
[2024-05-27] MEDS: POTASSIUM CHL 20MEQ/50ML 50 ML IV ONE (08:15)
[2024-05-27] MEDS ORDERED: POLYETHYLENE GLYCOL 17 GM PWDR PO PRN (09:00)
[2024-05-27] MEDS: POLYETHYLENE GLYCOL 17 GM PWDR PO ONE (10:06)
[2024-05-27] MEDS: METOCLOPRAMIDE HCL 5MG/ml INJ 2ml VIAL IV ONE (10:06)
[2024-05-27] MEDS ORDERED: VANCOMYCIN 1.75GM/350ML 350 ML IV SCH (11:45)
[2024-05-27] MEDS: CARVEDILOL 3.125 MG TAB PO ONE (16:47)
[2024-05-27] MEDS: LOSARTAN POTASSIUM 50 MG TAB PO ONE ×2 (16:48→22:25)
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
[2024-05-27] MEDS: DEXMEDETOMIDINE HCL IN D5W 100 ML IV SCH (20:00)
[2024-05-27] MEDS: LABETALOL HCL 20 MG/4 ML VL IV PRN (20:21)
[2024-05-27] MEDS: VANCOMYCIN 1.75GM/350ML 350 ML IV SCH (21:02)
[2024-05-27] MEDS: CARVEDILOL 3.125 MG TAB PO SCH (21:03)
[2024-05-27] MEDS: amLODIPine BESYLATE 5 MG TAB PO ONE (22:25)
[2024-05-27] MEDS: hydrALAZINE HCL 20 MG/ML VL IV ONE (22:30)
[2024-05-28] VITALS (106 sets, daily range): BP systolic 95–209; BP diastolic 44–111; PULSE 70–115; RESP 17–42; TEMP 98.2–99.5; O2SAT 95–100
[2024-05-28 03:59] LABS: Anion Gap 7 (5-15); Carbon Dioxide 28 mmol/L (20-31); Chloride 105 mmol/L (98-107); Sodium 140 mmol/L (136-145)
[2024-05-28 04:00] LABS: Calcium 9.1 mg/dL (8.7-10.4)
[2024-05-28 04:05] LABS: BUN/Creatinine Ratio 32.7 (10.0-20.0); Blood Urea Nitrogen 17 mg/dL (9-23); Glucose 94 mg/dL (74-106)
[2024-05-28 04:07] LABS: Potassium 3.5 mmol/L (3.5-5.1)
[2024-05-28 04:11] LABS: Basophils # (auto) 0.1 10 ^3/uL (0-0.2); Eosinophils # (auto) 0.2 10 ^3/uL (0-0.8); Monocytes # (auto) 1.2 10 ^3/uL (0-1.3); Neutrophils % (auto) 70.8 % (37.0-80.0)
[2024-05-28 04:12] LABS: Basophils % (auto) 0.6 % (0.0-2.0); Hematocrit 34.4 % (41.0-53.0); Hemoglobin 11.1 g/dL (13.5-17.5); Lymphocytes # (auto) 1.1 10 ^3/uL (0.4-5.4); Lymphocytes % (auto) 12.6 % (10.0-50.0); Mean Corpuscular Hemoglobin 25.4 pg (28.0-32.0); Mean Corpuscular Hgb Conc. 32.2 g/dL (32.0-36.0); Mean Corpuscular Volume 78.8 fL (80.0-100.0); Neutrophils # (auto) 6.1 10 ^3/uL (1.6-8.6); Platelet Count (auto) 387 10^3/uL (140-450); Red Blood Cells 4.37 10^6/uL (4.5-5.90); White Blood Cell 8.6 10^3/uL (4.4-10.8)
--- NOTE | 2024-05-28 04:48 | DVH ---
CHEST RADIOGRAPH Indication: PLEURAL EFFUSION Technique: Single frontal view of the chest was obtained Comparison: XY CHEST PORTABLE on DOS: 05/27/24 FINDINGS: Lines and Tubes: The endotracheal tube terminates 4.8 cm above the caryl right infusion catheter ter minates in the superior vena cava Lungs: Bilateral airspace disease similar to prior study. Pleura: Bilateral pleural effusions. No pneumothorax. Cardiomediastinal contours: Cardiomegaly. Bones: No acute osseous abnormality. IMPRESSION: 1. Bilateral airspace disease similar to prior study. 2. Bilateral pleural effusions. 3. Cardiomegaly.
[2024-05-28 06:34] LABS: Base Excess 2.7 mmol/L (-2.0-3.0)
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
[2024-05-28] MEDS: LOSARTAN POTASSIUM 50 MG TAB PO SCH (11:16)
--- NOTE | 2024-05-28 12:09 | DVHNC2 ---
SHERI FRAUSTO RESIDENT 05/28/24 1209: Procedure - Bronchoscopy procedure note: Indications:Atelectasis, Possible mucous plugging. Medicines: See [facility] notes. Complications: None Resident: Dr Frausto, PGY3 Attending: Dr Cason Procedure: Patient medications and allergies reviewed. The risks and benefits of the procedure and the sedation options and risk were discussed with the patient's healthcare proxy. All questions were answered and informed consent was obtained. Patient identification and proposed procedure were verified prior to the procedure by the physician, and a nurse, and the respiratory therapist in ICU room. The heart rate, respiratory rate, oxygen saturations, blood pressure, adequacy of pulmonary ventilation, and response to care were monitored throughout the procedure. The physical status of the patient was reassessed after the procedure. After obtaining informed consent, the bronchoscope was introduced through the endotracheal tube and advanced into the trachea bronchial tree of both lungs. The procedure was accomplished without difficulty. The patient tolerated the procedure well. Findings: The trachea is in normal caliber. The caryl is sharp. Moderate tracheobronchomalacia due to body habitus. The tracheobronchial tree of the right lung was examined to at least the first subsegmental level. The bronchial mucosa and anatomy in the right lung are normal. There are no endobronchial lesions. There was frothy clear secretions from right main stem bronchus onward throughout R1-R10. These were easily cleared. Right middle lobe (RML) Bronchoalveolar lavage (BAL) obtained. RML BAL sent for gram stain and culture, viral culture, fungal culture, and AFB smear and culture. The left upper lobe, lingula, and left lower lobe were examined to at least the first subsegmental level. Bronchial mucosa and anatomy in the left upper lobe and lingula are normal. There were no endobronchial lesions. There was frothy clear secretions from left main stem bronchus onward throughout L1-L10. There was no active bleeding at the completion of the procedure. Estimated blood loss: Less than 5 mL. Impression: Tracheobronchomalacia RML BAL performed Frothy clear secretions bilaterally ruled out endobronchial lesion Recommendation: Follow-up RML BAL results. Procedure codes: 79789, bronchoscopy, rigid and flexible, including fluoroscopic guidance, one performed; with bronchial endobronchial broncho-alveolar lavage, single or multiple sites LAKESHA CASON MD 05/31/24 1206: Date of Service: May 28, 2024 Billing Provider: LAKESHA CASON MD Common Visit Codes: PROCEDURE ONLY Procedure Codes: [id number] SHERI FRAUSTO May 28, 2024 12:09 LAKESHA CASON MD May 31, 2024 12:06
[2024-05-29] VITALS (102 sets, daily range): BP systolic 91–202; BP diastolic 40–101; PULSE 70–105; RESP 12–36; TEMP 98.1–99.5; O2SAT 75–100
[2024-05-29 01:44] LABS: Basophils # (auto) 0.1 10 ^3/uL (0-0.2); Lymphocytes # (auto) 1.2 10 ^3/uL (0.4-5.4); Monocytes # (auto) 1.4 10 ^3/uL (0-1.3)
[2024-05-29 01:46] LABS: Eosinophils # (auto) 0.2 10 ^3/uL (0-0.8); Eosinophils % (auto) 2.8 % (0.0-7.0); Hematocrit 35.7 % (41.0-53.0); Hemoglobin 11.9 g/dL (13.5-17.5); Lymphocytes % (auto) 14.9 % (10.0-50.0); Mean Corpuscular Hemoglobin 26.2 pg (28.0-32.0); Mean Corpuscular Hgb Conc. 33.3 g/dL (32.0-36.0); Mean Corpuscular Volume 78.7 fL (80.0-100.0); Monocytes % (auto) 17.6 % (0.0-12.0); Neutrophils # (auto) 5.1 10 ^3/uL (1.6-8.6); Neutrophils % (auto) 63.7 % (37.0-80.0); Nucleated Red Blood Cells % 0.1 %; Platelet Count (auto) 429 10^3/uL (140-450); Red Blood Cells 4.53 10^6/uL (4.5-5.90); Red Cell Distribution Width 18.3 % (11.8-14.3)
[2024-05-29 02:01] LABS: Alanine Aminotransferase 30 U/L (7-40); Albumin 3.5 g/dL (3.2-4.8); Anion Gap 6 (5-15); Aspartate Aminotransferase 38 U/L (13-40); BUN/Creatinine Ratio 31.7 (10.0-20.0); Blood Urea Nitrogen 19 mg/dL (9-23); Calcium 9.7 mg/dL (8.7-10.4); Carbon Dioxide 30 mmol/L (20-31); Chloride 104 mmol/L (98-107); Glucose 90 mg/dL (74-106); Magnesium 2.1 mg/dL (1.6-2.6); Potassium 3.8 mmol/L (3.5-5.1); Sodium 140 mmol/L (136-145); Total Protein 7.6 g/dL (5.7-8.2)
[2024-05-29 02:02] LABS: Alkaline Phosphatase 236 U/L (46-116); Bilirubin, Total 0.5 mg/dL (0.2-1.0)
--- NOTE | 2024-05-29 05:36 | DVH ---
EXAM: XR Chest, 1 View CLINICAL INDICATION: Pneumonia TECHNIQUE: Frontal view of the chest. COMPARISON: XY CHEST PORTABLE on DOS: 05/28/24, XY CHEST PORTABLE on DOS: 05/27/24, XY CHEST PORTABLE on DOS: 05/26/24, XY CHEST PORTABLE on DOS: 05/25/24, XY CHEST PORTABLE on DOS: 05/24/24 FINDINGS: LUNGS AND PLEURAL SPACES: See below. HEART: Cardiomegaly with pulmonary congestion and edema. Superimposed pneumonia cannot be excluded. MEDIASTINUM: Unremarkable. Normal mediastinal contour. BONES/JOINTS: Unremarkable. No acute fracture. TUBES, LINES AND DEVICES: Stable tubes and lines. OTHER FINDINGS: No significant change from prior exam. . IMPRESSION: 1. Cardiomegaly with pulmonary congestion and edema. Superimposed pneumonia cannot be excluded. 2. No significant change from prior exam.
[2024-05-29 06:49] LABS: Base Excess 3.2 mmol/L (-2.0-3.0)
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
[2024-05-29] MEDS: PROPOFOL 100 ML IV ONE (14:36)
[2024-05-29] MEDS: PROPOFOL 100 ML IV SCH (17:02)
[2024-05-30] VITALS (104 sets, daily range): BP systolic 87–190; BP diastolic 38–300; PULSE 70–102; RESP 13–27; TEMP 98.1–100; O2SAT 93–100
[2024-05-30 04:23] LABS: Basophils # (auto) 0.1 10 ^3/uL (0-0.2); Basophils % (auto) 1.1 % (0.0-2.0); Eosinophils # (auto) 0.2 10 ^3/uL (0-0.8); Eosinophils % (auto) 3.7 % (0.0-7.0); Hematocrit 32.7 % (41.0-53.0); Hemoglobin 10.7 g/dL (13.5-17.5); Lymphocytes # (auto) 0.9 10 ^3/uL (0.4-5.4); Lymphocytes % (auto) 14.5 % (10.0-50.0); Mean Corpuscular Hemoglobin 25.6 pg (28.0-32.0); Mean Corpuscular Hgb Conc. 32.6 g/dL (32.0-36.0); Mean Corpuscular Volume 78.5 fL (80.0-100.0); Monocytes # (auto) 1.1 10 ^3/uL (0-1.3); Neutrophils # (auto) 4.1 10 ^3/uL (1.6-8.6); Neutrophils % (auto) 63.7 % (37.0-80.0); Nucleated Red Blood Cells % 0.1 %; Platelet Count (auto) 349 10^3/uL (140-450); Red Blood Cells 4.17 10^6/uL (4.5-5.90); Red Cell Distribution Width 17.8 % (11.8-14.3); White Blood Cell 6.4 10^3/uL (4.4-10.8)
[2024-05-30 04:40] LABS: Alanine Aminotransferase 27 U/L (7-40); Anion Gap 6 (5-15); Aspartate Aminotransferase 33 U/L (13-40); Blood Urea Nitrogen 21 mg/dL (9-23); Calcium 8.7 mg/dL (8.7-10.4); Carbon Dioxide 30 mmol/L (20-31); Chloride 106 mmol/L (98-107); Glucose 92 mg/dL (74-106); Magnesium 2.1 mg/dL (1.6-2.6); Sodium 142 mmol/L (136-145); Total Protein 6.8 g/dL (5.7-8.2)
[2024-05-30 04:41] LABS: Bilirubin, Total 0.4 mg/dL (0.2-1.0)
[2024-05-30 04:46] LABS: Albumin 3.1 g/dL (3.2-4.8); Alkaline Phosphatase 212 U/L (46-116); Potassium 3.3 mmol/L (3.5-5.1)
[2024-05-30] MEDS: POTASSIUM CHL 20MEQ/50ML 50 ML IV ONE (06:00)
--- NOTE | 2024-05-30 06:06 | DVH ---
CHEST RADIOGRAPH Indication: PNA, CHF Technique: Single frontal view of the chest was obtained COMPARISON: XY CHEST PORTABLE on DOS: 05/29/24, XY CHEST PORTABLE on DOS: 05/28/24, XY CHEST PORTABLE o n DOS: 05/27/24, XY CHEST PORTABLE on DOS: 05/26/24, XY CHEST PORTABLE on DOS: 05/25/24 FINDINGS: Lines and Tubes: Lines and tubes are unchanged. Lungs: Stable appearing multifocal bilateral pulmonary airspace disease and bilateral pleural effusio ns. No pneumothorax. Cardiomediastinal contours: Stable cardiomegaly. Bones: Unremarkable IMPRESSION: 1. No evidence of interval change. Stable diffuse pulmonary airspace disease and cardiomegaly. Bila teral pleural effusions suspected.
[2024-05-30 07:33] LABS: Base Excess 1.7 mmol/L (-2.0-3.0)
[2024-05-30] MEDS: NICOTINE 14 MG/24HR TOPICAL PATCH TD SCH (10:18)
--- NOTE | 2024-05-30 12:57 | DVHPN2 ---
Assessment/Plan Assessment/Plan ICU note 43 yo M with COPD group E, afib with RVR, PE, DVT, CAD, HFrEF EF 20%, admitted for SOB, found to have worsening SOB, which later was intubated and placed on mechanical ventilation, had thoracentesis and s/p chest tube, seen by surgery for empyema decortication 05/22. seen today during rounds, off pressors, failing CPAP, plan for bronch today, difficult to titrate down sedation. possible trach Physical exam Intubated, sedated on mechanical ventilation corneal, gag and cough present PERLLA grimacing to pain mechanical breath sounds s1 s2 rrr abdomen soft trace LE edema Labs EKG imaging reviewed cultures NGTD Assessment and plan spetic shock possible mixed cardiogenic shock acute on chronic hypoxic respiratory failure acute on chornic systolic heart failure HFrEF 20% with exacerbation afib with RVR hx of PE COPD group E with exacerbation PNA gp vs gn acute metabolic enceophalopathy liver cirrhosis hep C cannot rule out hepatic ecephalopathy morbid obesity prior meth use c/w mechanical ventilation maintain spo2 >94% c/w pressors maintain MAP >65 c/w sedation maintain RAAS -2 start seroquel and klonazepam to assist with titration c/w lasix maintain net 0 c/w vanc and luzmaria c/w steroid, albuterol, ipatropium pulm consult, possible bronch c/w GDMT, hold for bronch, resume after hold AC, on dvt ppx only currently keep glucose between 150-200 keep K 4, Ph 3, Mg 2 lines ETT NGT TLC a line diet jevity dvt ppx lovenox gi ppx protonix code status full code goals of care curative critical care time 60 minutes Plan discussed with: Other Date of Service: May 30, 2024 Billing Provider: HECTOR CHAMBERS MD Common Visit Codes: [id number] CARE 30-74 MIN HECTOR CHAMBERS MD May 30, 2024 12:57
[2024-05-30] MEDS: VANCOMYCIN 1.75GM/350ML 350 ML IV SCH (12:59)
[2024-05-30] MEDS: DexAMETHasone SOD PHOS 10MG/1ML VIAL INJ IV SCH (15:36)
--- NOTE | 2024-05-30 16:39 | DVH ---
INDICATION: s/p bronchoscopy TECHNIQUE: Single frontal view of the chest was obtained COMPARISON: XY CHEST PORTABLE on DOS: 05/30/24, XY CHEST PORTABLE on DOS: 05/29/24, XY CHEST PORTABLE o n DOS: 05/28/24, XY CHEST PORTABLE on DOS: 05/27/24, XY CHEST PORTABLE on DOS: 05/26/24, XY CHEST PORTAB LE on DOS: 05/30/24 FINDINGS: Lines and Tubes: Lines and tubes are unchanged. Lungs: Stable appearing multifocal bilateral pulmonary airspace disease and bilateral pleural effusio ns. No pneumothorax. Cardiomediastinal contours: Stable cardiomegaly. Bones: Unremarkable IMPRESSION: 1. No evidence of interval change. Stable diffuse pulmonary airspace disease and cardiomegaly. Bila teral pleural effusions suspected.
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
--- NOTE | 2024-05-30 18:46 | DVHNC2 ---
Procedure - Bronchoscopy procedure note: Indications: Bilateral lower lobe atelectasis, Possible mucous plugging. Medicines: See MACHINE GUIDE BASE WINDER notes. Complications: None Procedure: Patient medications and allergies reviewed. The risks and benefits of the procedure and the sedation options and risk were discussed with the patient's healthcare proxy. All questions were answered and informed consent was obtained. Patient identification and proposed procedure were verified prior to the procedure by the physician, and a nurse, and the respiratory therapist in ICU room. The heart rate, respiratory rate, oxygen saturations, blood pressure, adequacy of pulmonary ventilation, and response to care were monitored throughout the procedure. The physical status of the patient was reassessed after the procedure. After obtaining informed consent, the bronchoscope was introduced through the endotracheal tube and advanced into the trachea bronchial tree of both lungs. The procedure was accomplished without difficulty. The patient tolerated the procedure well. Findings: The trachea is in normal caliber. The caryl is sharp. The tracheobronchial tree of the right lung was examined to at least the first subsegmental level. The bronchial mucosa and anatomy in the right lung are normal. There are no endobronchial lesions. There was copious whitish secretions from right main stem bronchus onward throughout R1-R10. Right middle lobe (RML) Bronchoalveolar lavage (BAL) obtained. RML BAL sent for gram stain and culture. The left upper lobe, lingula, and left lower lobe were examined to at least the first subsegmental level. Bronchial mucosa and anatomy in the left upper lobe and lingula are normal. There were no endobronchial lesions. There was copious whitish secretions from left main stem bronchus onward throughout L6-L10. Mucous plugging removed from L6-L10. There was no active bleeding at the completion of the procedure. There was copious secretions in oropharynx which required suctioning. Recommend oral care and HOB elevation/Aspiration precautions. Estimated blood loss: Less than 5 mL. Impression: Right and Left lower lobe atelectasis due to mucous plugging Mucous plugging from L6-L10 and R6-R10 RML BAL performed Recommendation: Follow-up RML BAL results. Pulmonary toileting. Procedure codes: 00369, bronchoscopy, rigid and flexible, including fluoroscopic guidance, one performed; with bronchial endobronchial removal of mucous plugging, single or multiple sites SHERI KAUFMAN MD May 30, 2024 18:46
[2024-05-30] MEDS: clonazePAM 0.5 MG TAB PO SCH (23:08)
[2024-05-30] MEDS: QUEtiapine FUMARATE 25 MG TAB PO SCH (23:08)
[2024-05-31] VITALS (108 sets, daily range): BP systolic 102–198; BP diastolic 45–109; PULSE 63–112; RESP 15–42; TEMP 97.3–99.5; O2SAT 92–100
[2024-05-31 03:57] LABS: Basophils # (auto) 0 10 ^3/uL (0-0.2); Eosinophils # (auto) 0 10 ^3/uL (0-0.8); Lymphocytes # (auto) 0.7 10 ^3/uL (0.4-5.4); Neutrophils % (auto) 81.5 % (37.0-80.0)
[2024-05-31 04:01] LABS: Basophils % (auto) 0.9 % (0.0-2.0); Eosinophils % (auto) 0.4 % (0.0-7.0); Hematocrit 32.2 % (41.0-53.0); Lymphocytes % (auto) 12.9 % (10.0-50.0); Mean Corpuscular Hemoglobin 26.8 pg (28.0-32.0); Mean Corpuscular Hgb Conc. 34.2 g/dL (32.0-36.0); Mean Corpuscular Volume 78.3 fL (80.0-100.0); Monocytes # (auto) 0.2 10 ^3/uL (0-1.3); Monocytes % (auto) 4.3 % (0.0-12.0); Neutrophils # (auto) 4.1 10 ^3/uL (1.6-8.6); Platelet Count (auto) 340 10^3/uL (140-450); Red Blood Cells 4.12 10^6/uL (4.5-5.90); Red Cell Distribution Width 17.9 % (11.8-14.3)
[2024-05-31 04:20] LABS: Chloride 104 mmol/L (98-107); Sodium 142 mmol/L (136-145)
[2024-05-31 04:21] LABS: Calcium 9.2 mg/dL (8.7-10.4)
[2024-05-31 04:27] LABS: BUN/Creatinine Ratio 36.2 (10.0-20.0); Blood Urea Nitrogen 21 mg/dL (9-23); Magnesium 2.3 mg/dL (1.6-2.6)
[2024-05-31 04:28] LABS: Phosphorus 4.2 mg/dL (2.4-5.1)
[2024-05-31 04:30] LABS: Glucose 127 mg/dL (74-106)
[2024-05-31 04:36] LABS: Anion Gap 10 (5-15); Carbon Dioxide 28 mmol/L (20-31)
--- NOTE | 2024-05-31 06:05 | DVH ---
CHEST RADIOGRAPH Indication: pleural effusion Technique: Single frontal view of the chest was obtained COMPARISON: XY CHEST PORTABLE on DOS: 05/30/24, XY CHEST PORTABLE on DOS: 05/30/24, XY CHEST PORTABLE o n DOS: 05/29/24, XY CHEST PORTABLE on DOS: 05/28/24, XY CHEST PORTABLE on DOS: 05/27/24 FINDINGS: Lines and Tubes: Unchanged. Lungs: Grossly stable appearing diffuse bilateral multifocal pulmonary airspace disease. Pleura: Probable bilateral pleural effusions. No pneumothorax. Cardiomediastinal contours: Cardiomegaly. Bones: Unremarkable IMPRESSION: 1. Stable appearing diffuse bilateral multifocal pulmonary airspace disease and probable bilateral pl eural effusions. 2. Cardiomegaly.
[2024-05-31 07:01] LABS: Base Excess 2.7 mmol/L (-2.0-3.0)
--- NOTE | 2024-05-31 10:58 | DVHPN2 ---
Assessment/Plan Assessment/Plan ICU note 43 yo M with COPD group E, afib with RVR, PE, DVT, CAD, HFrEF EF 20%, admitted for SOB, found to have worsening SOB, which later was intubated and placed on mechanical ventilation, had thoracentesis and s/p chest tube, seen by surgery for empyema decortication 05/22. seen today during rounds, off pressors, hypertensive. agitated off sedation but following commands. restarting sedation, adding oral meds. Physical exam Intubated, sedated on mechanical ventilation corneal, gag and cough present PERLLA grimacing to pain mechanical breath sounds s1 s2 rrr abdomen soft trace LE edema Labs EKG imaging reviewed cultures NGTD Assessment and plan spetic shock possible mixed cardiogenic shock acute on chronic hypoxic respiratory failure acute on chornic systolic heart failure HFrEF 20% with exacerbation afib with RVR hx of PE COPD group E with exacerbation PNA gp vs gn acute metabolic enceophalopathy liver cirrhosis hep C cannot rule out hepatic ecephalopathy morbid obesity prior meth use c/w mechanical ventilation maintain spo2 >94% c/w pressors maintain MAP >65 c/w sedation maintain RAAS -2 c/w lasix maintain net 0 c/w vanc and luzmaria c/w steroid, albuterol, ipatropium pulm consult, possible bronch c/w GDMT, hold for bronch, resume after hold AC, on dvt ppx only currently add methadone, up klonazepam and seroquel uptitrate htn meds keep glucose between 150-200 keep K 4, Ph 3, Mg 2 lines ETT NGT TLC a line diet jevity dvt ppx lovenox gi ppx protonix code status full code goals of care curative critical care time 80 minutes Plan discussed with: Patient, Spouse My Orders Orders - HECTOR CHAMBERS MD Procedure Category Date Status Time Quetiapine Fumarate PHA 05/30/24 In Process Tablet (Seroquel Tab 22:00 Clonazepam Tablet PHA 05/30/24 In Process (Klonopin Tablet) 22:00 Quetiapine Fumarate PHA 05/31/24 Transmitted Tablet (Seroquel Tab 22:00 Methadone Hcl Tablet PHA 05/31/24 Transmitted (Methadone Hcl Tabl 14:00 Carvedilol Tablet PHA 05/31/24 Transmitted (Coreg Tablet) 22:00 Clonazepam Tablet PHA 05/31/24 Transmitted (Klonopin Tablet) 14:00 Date of Service: May 31, 2024 Billing Provider: HECTOR CHAMBERS MD Common Visit Codes: 29886-[id number] CARE 30-74 MIN, 09103-[id number] CARE-EACH +30MIN HECTOR CHAMBERS MD May 31, 2024 10:57
[2024-05-31] MEDS: clonazePAM 0.5 MG TAB PO SCH (14:00)
[2024-05-31] MEDS: METHADONE HCL 10 MG TAB PO SCH (16:08)
[2024-05-31] MEDS: QUEtiapine FUMARATE 25 MG TAB PO SCH (21:17)
[2024-05-31] MEDS: CARVEDILOL 3.125 MG TAB PO SCH (21:18)
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
[2024-06-01] VITALS (104 sets, daily range): BP systolic 59–192; BP diastolic 43–107; PULSE 51–98; RESP 5–22; TEMP 97.7–99.1; O2SAT 89–100
[2024-06-01 04:14] LABS: Chloride 105 mmol/L (98-107); Potassium 3.7 mmol/L (3.5-5.1); Sodium 142 mmol/L (136-145)
[2024-06-01 04:15] LABS: Anion Gap 8 (5-15); Carbon Dioxide 29 mmol/L (20-31)
[2024-06-01 04:20] LABS: BUN/Creatinine Ratio 43.5 (10.0-20.0)
[2024-06-01 04:21] LABS: Magnesium 2.3 mg/dL (1.6-2.6)
[2024-06-01 04:22] LABS: Phosphorus 4.5 mg/dL (2.4-5.1)
[2024-06-01 04:26] LABS: Basophils # (auto) 0 10 ^3/uL (0-0.2); Basophils % (auto) 0.4 % (0.0-2.0); Eosinophils # (auto) 0 10 ^3/uL (0-0.8); Hemoglobin 10.5 g/dL (13.5-17.5); Neutrophils # (auto) 4.9 10 ^3/uL (1.6-8.6); Nucleated Red Blood Cells % 0.1 %
[2024-06-01 04:28] LABS: Eosinophils % (auto) 0.2 % (0.0-7.0); Lymphocytes % (auto) 14.4 % (10.0-50.0); Mean Corpuscular Hemoglobin 26.5 pg (28.0-32.0); Mean Corpuscular Hgb Conc. 33.9 g/dL (32.0-36.0); Mean Corpuscular Volume 78.2 fL (80.0-100.0); Monocytes # (auto) 0.7 10 ^3/uL (0-1.3); Monocytes % (auto) 10.9 % (0.0-12.0); Neutrophils % (auto) 74.1 % (37.0-80.0); Platelet Count (auto) 329 10^3/uL (140-450); Red Blood Cells 3.97 10^6/uL (4.5-5.90); Red Cell Distribution Width 17.7 % (11.8-14.3); White Blood Cell 6.7 10^3/uL (4.4-10.8)
[2024-06-01 04:32] LABS: Blood Urea Nitrogen 27 mg/dL (9-23); Glucose 130 mg/dL (74-106)
--- NOTE | 2024-06-01 05:06 | DVH ---
CHEST RADIOGRAPH Indication: INTUBATED Technique: Single frontal view of the chest was obtained Comparison: XY CHEST PORTABLE on DOS: 05/31/24 FINDINGS: Lines and Tubes: Endotracheal tube terminates 3.1 cm above the caryl. Right central venous catheter terminates in the right atrium. Enteric tube is not well visualized. Right chest tube unchanged. Lungs: Diffuse bilateral pulmonary opacities are similar to the prior study. Pleura: Bilateral pleural effusions. No pneumothorax. Cardiomediastinal contours: Cardiomegaly. Bones: No acute osseous abnormality. IMPRESSION: 1. No significant interval change.
[2024-06-01 07:30] LABS: Base Excess 1.4 mmol/L (-2.0-3.0)
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
--- NOTE | 2024-06-01 09:29 | DVHPN2 ---
Subjective Date Seen: Jun 01, 2024 Post op day Post op day: 10 Patient reports: No new complaints, Other (patietn intubated, sedated ) Objective Vitals Vital Sign Date Time Temp Pulse Resp B/P (MAP) Pulse Ox O2 Delivery O2 Flow Rate FiO2 06/01/24 09:08 70 20 175/82 (113) 97 30 06/01/24 07:00 98.1 208.6 06/01/24 06:25 Mechanical Ventilator+ Total Intake and Output 05/31/24 05/31/24 06/01/24 14:59 22:59 06:59 Intake Total 390.9 ml 598.13 ml 506.30 ml Output Total 2350 ml 750 ml Balance 390.9 ml -1751.87 ml -243.70 ml Medications Current Medications Medications Dose Ordered Sig/Ahsan Route Start Time Stop Time Status Last Admin Dose Admin Sodium Chloride 10 ml Q8HR IV 05/15/24 06:00 06/01/24 06:09 10 ML Ondansetron HCl 4 mg Q4HP PRN IV 05/15/24 03:00 05/17/24 11:31 4 MG Docusate Sodium 100 mg BIDPRN PRN PO 05/15/24 03:00 Hydralazine HCl 10 mg Q6HP PRN IV 05/15/24 03:30 05/31/24 20:01 10 MG Nitroglycerin 0.4 mg Q5MINP PRN SL 05/15/24 05:15 Empaglifozin 10 mg DAILY PO 05/16/24 10:00 06/01/24 09:02 10 MG Spironolactone 25 mg DAILY PO 05/16/24 10:00 06/01/24 09:02 25 MG Vancomycin HCl 0 ml @ 0 mls/hr UD IV 05/16/24 09:15 Morphine Sulfate 2 mg Q4HPRN PRN IV 05/20/24 16:15 05/29/24 12:21 2 MG Midazolam HCl 50 ml @ 1 mls/hr Q24H IV 05/22/24 09:00 05/30/24 23:38 4 MLS/HR Fentanyl Citrate 250 ml @ 2.5 mls/hr Q24H IV 05/22/24 09:00 06/01/24 07:34 20 MLS/HR Albuterol 2.5 mg Q6HR NEB 05/23/24 12:00 06/01/24 06:17 2.5 MG Ipratropium [place] 0.5 mg Q6HR NEB 05/23/24 12:00 06/01/24 06:17 0.5 MG Furosemide 40 mg DAILY IV 05/24/24 10:00 06/01/24 09:05 40 MG Enteral Nutritional Formula 1,000 ml 50ML/HR GT 05/24/24 07:30 05/30/24 17:23 1,000 ML Lactulose 30 ml BID GT 05/24/24 10:00 05/31/24 21:16 30 ML Acetaminophen 650 mg Q6HP PRN PO 05/24/24 08:00 05/26/24 21:05 650 MG Enoxaparin Sodium 40 mg DAILY SC 05/25/24 10:00 06/01/24 09:00 40 MG Labetalol HCl 10 mg Q6HP PRN IV 05/26/24 10:15 06/01/24 05:13 10 MG Meropenem 50 ml @ 17 mls/hr Q8HR IV 05/26/24 22:00 06/01/24 06:04 17 MLS/HR Metoclopramide HCl 5 mg Q8HPRN PRN IV 05/26/24 18:00 Polyethylene Glycol 17 gm DAILYPRN PRN PO 05/27/24 09:00 Losartan Potassium 50 mg DAILY PO 05/28/24 10:00 05/31/24 10:46 50 MG Nicotine 1 patch DAILY TD 05/30/24 10:00 06/01/24 09:04 1 PATCH Propofol 100 ml @ 4.14 mls/hr Q24H IV 05/29/24 15:15 06/01/24 08:30 41.4 MLS/HR Dexmedetomidine HCl 400 mcg/ Dextrose 100 ml @ 7.235 mls/ hr [id number] IV 05/29/24 16:00 05/31/24 10:51 25.323 MLS/HR Vancomycin HCl 350 ml @ 233.333 mls/hr Q12H IV 05/30/24 13:00 06/01/24 01:37 233.333 MLS/HR Dexamethasone Sodium Phosphate 6 mg Q6H IV 05/30/24 14:15 06/01/24 14:14 06/01/24 07:34 6 MG Carvedilol 12.5 mg Q12HR PO 05/31/24 22:00 06/01/24 09:01 12.5 MG Clonazepam 1 mg TID PO 05/31/24 14:00 06/01/24 06:08 1 MG Quetiapine Fumarate 100 mg BID PO 05/31/24 22:00 06/01/24 09:02 100 MG Methadone HCl 10 mg Q8HR PO 05/31/24 14:00 06/01/24 06:09 10 MG General: Obese, Other (patient intubated, sedated) Labs and Microbiology Laboratory Tests 06/01/24 03:30 Test 06/01/24 03:30 Range/Units Serum Glucose 130 H 74-106 mg/dL Ass/Plan Labs and/or images reviewed: Labs reviewed by me, Image(s) reviewed by me Problem List Assessment and plan #Neurology -metabolic encephalopathy due to acute on chronic exacerbation of COPD/pneumonia Gram-positive versus Gram-negative -on sedation -patient on mechanical ventilation -avoid dehydration and nephrotoxic drugs #Cardiovascular -sepsis likely due to pneumonia -acute decompensated systolic heart failure Acute on chronic HFrEF, -NYHA class III -Hypertensive urgency -atrial fibrillation with a rapid ventricular rate -history of DVT, pulmonary embolism -noncardiac chest pain -Previous Echo on 04/02/2024 revealed-Severely dilated left ventricle with severely decreased systolic function. EF- 20% with severe global hypokinesis.. Severely dilated right ventricle with severely decreased systolic function.. Small circumferential pericardial effusion. -continue Jardiance 10 mg p.o. daily -Lasix 40 mg IV daily -carvedilol 3.125 mg by OG tube q.12h -Losartan 50 mg daily via with G-tube -spironolactone 25 mg p.o. daily #Respiratory -acute hypoxic respiratory failure due to acute exertional COPD/CHF/pneumonia Gram-positive versus Gram-negative -acute exacerbation of COPD -pneumonia Gram-positive versus Gram-negative -loculated parapneumonic effusion -atelectasis -empyema -status post thoracotomy -status post thoracentesis -pulmonary embolism, history of DVT -tracheobronchomalacia -patient had bronchoscopy on 05/28/2024 - status post surgery consult, recommendation reviewed and appreciated -discontinued levofloxacin on 05/26/2024 -continue meropenem and vancomycin as recommended -continue nebulization as prescribed #Gastrointestinal -cirrhosis of liver -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 -hepatitis-C positive -slow transit bowel movement -transaminitis -continue lactulose as prescribed #Genitourinary/Renal -monitor intake output chart #Infectious disease Sepsis likely due to pneumonia Gram-positive versus Gram-negative -urine culture negative, respiratory culture no growth so far -pleural fluid no organisms so far -blood culture no growth so far #Hemato oncology -leukocytosis likely due to sepsis -continue current antibiotic #Metabolic/endocrinology Prediabetes -monitor blood sugar level #Morbid Obesity, BMI-46.3 # substance abuse, amphetamine, marijuana -patient was counseled about the effect of substance abuse before intubation when patient was awake and alert and oriented #Skin/elementary -monitor skin integrity Drips-fentanyl, propofol, Versed Lines-right subclavian central line, left radial arterial line-05/22/2024 ETT-intubate on 05/22/2024 Sultana's catheter Goals of care/advance care planning Code status ; discussed >15 minutes PUD prophylaxis: Lovenox DVT prophylaxis: Pantoprazole Plan discussed with Dr. Fay , nursing staff, Total time spent on patient evaluation, chart review, assessment and plan, total critical time spent including monitoring of the ventilator , CPAP trial monitoring and excluding procedures was 83 minutes Assessment/Plan s/p right thoracotomy with chest tube placement no air leak from chest tube minimal drainage from chest tube reviewed labs and notes Plan: Continue with current treatment Prognosis: Poor Plan discussed with nurse, Dr. Cade Visit Coding Surgery Date of Service if different f: Jun 01, 2024 Billing Provider: DANK CADE MD Surgery Visit Codes: [id number] INP/OBS CARE(HIGH) [facility] Jun 01, 2024 09:29
[2024-06-01] MEDS: fentaNYL Drip 2500mCg/250mlNS 250 ML IV SCH (20:58)
[2024-06-01] MEDS: diphenhdrAMINE HCL 50 MG/1 ML VL IV ONE (21:11)
[2024-06-02] VITALS (109 sets, daily range): BP systolic 97–272; BP diastolic 42–156; PULSE 53–97; RESP 9–28; TEMP 98.1–100.2; O2SAT 80–100
[2024-06-02 03:46] LABS: Basophils # (auto) 0 10 ^3/uL (0-0.2); Eosinophils # (auto) 0.1 10 ^3/uL (0-0.8); Hemoglobin 10.7 g/dL (13.5-17.5); Lymphocytes # (auto) 1.4 10 ^3/uL (0.4-5.4); Monocytes # (auto) 0.9 10 ^3/uL (0-1.3); Neutrophils # (auto) 3.1 10 ^3/uL (1.6-8.6); Neutrophils % (auto) 55.6 % (37.0-80.0); Red Cell Distribution Width 18.1 % (11.8-14.3)
[2024-06-02 03:49] LABS: Basophils % (auto) 0.8 % (0.0-2.0); Lymphocytes % (auto) 25.4 % (10.0-50.0); Mean Corpuscular Hemoglobin 25.3 pg (28.0-32.0); Mean Corpuscular Hgb Conc. 32.5 g/dL (32.0-36.0); Mean Corpuscular Volume 77.9 fL (80.0-100.0); Monocytes % (auto) 16.2 % (0.0-12.0); Nucleated Red Blood Cells % 0.2 %; Platelet Count (auto) 315 10^3/uL (140-450); Red Blood Cells 4.23 10^6/uL (4.5-5.90); White Blood Cell 5.5 10^3/uL (4.4-10.8)
[2024-06-02 04:03] LABS: Alanine Aminotransferase 25 U/L (7-40); Anion Gap 8 (5-15); Aspartate Aminotransferase 25 U/L (13-40); BUN/Creatinine Ratio 53.6 (10.0-20.0); Calcium 9.4 mg/dL (8.7-10.4); Carbon Dioxide 27 mmol/L (20-31); Chloride 107 mmol/L (98-107); Glucose 89 mg/dL (74-106); Magnesium 2.1 mg/dL (1.6-2.6); Sodium 142 mmol/L (136-145); Total Protein 6.9 g/dL (5.7-8.2)
[2024-06-02 04:04] LABS: Bilirubin, Total 0.3 mg/dL (0.2-1.0)
[2024-06-02 04:05] LABS: Albumin 3.1 g/dL (3.2-4.8); Alkaline Phosphatase 155 U/L (46-116); Blood Urea Nitrogen 30 mg/dL (9-23); Potassium 3.2 mmol/L (3.5-5.1)
--- NOTE | 2024-06-02 05:55 | DVH ---
EXAM: XR Chest, 1 View CLINICAL INDICATION: PNA TECHNIQUE: Frontal view of the chest. COMPARISON: XY CHEST PORTABLE on DOS: 06/01/24, XY CHEST PORTABLE on DOS: 05/31/24, XY CHEST PORTABLE on DOS: 05/30/24, XY CHEST PORTABLE on DOS: 05/30/24, XY CHEST PORTABLE on DOS: 05/29/24 FINDINGS: LUNGS AND PLEURAL SPACES: Improving congestive heart failure. No consolidation. No pneumothorax. HEART: Unremarkable. No cardiomegaly. MEDIASTINUM: Unremarkable. Normal mediastinal contour. BONES/JOINTS: Unremarkable. No acute fracture. TUBES, LINES AND DEVICES: Stable tubes. OTHER FINDINGS: . IMPRESSION: Improving congestive heart failure.
[2024-06-02] MEDS ORDERED: diphenhdrAMINE HCL 50 MG/1 ML VL IV PRN (06:00)
[2024-06-02 06:57] LABS: Base Excess -2.6 mmol/L (-2.0-3.0)
[2024-06-02] MEDS ORDERED: POTASSIUM CHL 20MEQ/100ML 100 ML IV SCH (08:15)
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
[2024-06-02] MEDS: LOSARTAN POTASSIUM 50 MG TAB PO SCH (09:50)
[2024-06-02] MEDS: POTASSIUM CHL 20MEQ/50ML 50 ML IV SCH (10:15)
[2024-06-02] MEDS: METOCLOPRAMIDE HCL 5MG/ml INJ 2ml VIAL IV ONE (14:34)
[2024-06-02] MEDS: POLYETHYLENE GLYCOL 17 GM PWDR PO ONE (14:34)
[2024-06-02] MEDS: LACTULOSE 20Gm/30ML SOLN GT SCH (16:19)
[2024-06-03] VITALS (98 sets, daily range): BP systolic 88–164; BP diastolic 42–82; PULSE 62–92; RESP 12–41; TEMP 98.4–99.3; O2SAT 92–100
[2024-06-03 03:45] LABS: Basophils # (auto) 0.1 10 ^3/uL (0-0.2); Basophils % (auto) 1.1 % (0.0-2.0); Eosinophils # (auto) 0.2 10 ^3/uL (0-0.8); Monocytes # (auto) 0.8 10 ^3/uL (0-1.3); Nucleated Red Blood Cells % 0.1 %
[2024-06-03 03:52] LABS: Eosinophils % (auto) 3.8 % (0.0-7.0); Hematocrit 34.2 % (41.0-53.0); Hemoglobin 11.2 g/dL (13.5-17.5); Lymphocytes # (auto) 1.2 10 ^3/uL (0.4-5.4); Lymphocytes % (auto) 23.9 % (10.0-50.0); Mean Corpuscular Hemoglobin 25.9 pg (28.0-32.0); Mean Corpuscular Hgb Conc. 32.9 g/dL (32.0-36.0); Mean Corpuscular Volume 78.7 fL (80.0-100.0); Monocytes % (auto) 16.9 % (0.0-12.0); Neutrophils # (auto) 2.7 10 ^3/uL (1.6-8.6); Neutrophils % (auto) 54.3 % (37.0-80.0); Platelet Count (auto) 295 10^3/uL (140-450); Red Blood Cells 4.34 10^6/uL (4.5-5.90)
[2024-06-03 04:04] LABS: Anion Gap 6 (5-15); BUN/Creatinine Ratio 45.2 (10.0-20.0); Calcium 8.8 mg/dL (8.7-10.4); Carbon Dioxide 29 mmol/L (20-31); Chloride 107 mmol/L (98-107); Glucose 103 mg/dL (74-106); Sodium 142 mmol/L (136-145); Total Protein 6.7 g/dL (5.7-8.2)
[2024-06-03 04:05] LABS: Bilirubin, Total 0.4 mg/dL (0.2-1.0)
[2024-06-03 04:07] LABS: Alanine Aminotransferase 42 U/L (7-40); Alkaline Phosphatase 171 U/L (46-116); Aspartate Aminotransferase 45 U/L (13-40); Blood Urea Nitrogen 28 mg/dL (9-23); Potassium 3.4 mmol/L (3.5-5.1)
--- NOTE | 2024-06-03 04:47 | DVH ---
CHEST RADIOGRAPH Indication: PNA Technique: Single frontal view of the chest was obtained Comparison: XY CHEST PORTABLE on DOS: 06/02/24 FINDINGS: Lines and Tubes: The endotracheal tube terminates above the caryl. Right central venous catheter, r ight chest tube and enteric tube are unchanged in position. Lungs: Bibasilar opacities. Pleura: Bilateral pleural effusions. No pneumothorax. Cardiomediastinal contours: Cardiomegaly. Bones: No acute osseous abnormality. IMPRESSION: 1. Cardiomegaly. 2. Bilateral pulmonary opacities which may reflect edema similar to prior study.
[2024-06-03] MEDS: POTASSIUM CHL 20MEQ/100ML 100 ML IV ONE (05:30)
[2024-06-03 07:11] LABS: INR 1.06 (0.9-1.15); Prothrombin Time 11.2 sec (9.3-11.8)
[2024-06-03 07:49] LABS: Base Excess 0.5 mmol/L (-2.0-3.0)
[2024-06-03 08:47] LABS: INR 1.05 (0.9-1.15); Partial Thromboplastin Time 27.5 SEC (24.5-34.5); Prothrombin Time 11.1 sec (9.3-11.8)
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
[2024-06-03] MEDS: BUPIVACAINE 0.25% INJ 50ML VIAL ONE (10:58)
[2024-06-03] MEDS ORDERED: ROCURONIUM 10MG/ML 10ML VIAL IV ONE (11:11)
[2024-06-03] MEDS ORDERED: fentaNYL CITRATE 100 MCG/2 ML VL ONE (11:12)
[2024-06-03] MEDS ORDERED: ePHEDrine SULFATE 50 MG/ML AMP ONE (11:41)
[2024-06-03] MEDS: BUPIVACAINE 0.5% P/F INJ 10 ML VIAL ONE (12:04)
--- NOTE | 2024-06-03 12:53 | DVHOP ---
DATE OF SURGERY: 06/03/2024 PREOPERATIVE DIAGNOSIS: Ventilator-dependent respiratory failure. POSTOPERATIVE DIAGNOSIS: Ventilator-dependent respiratory failure. SURGEON: Barron Cade MD EMBEDDED SOFTWARE MANAGER: Doni Braun. ANESTHESIA: General endotracheal. ANESTHESIOLOGIST: Dr. Campos. PROCEDURE: Tracheostomy. DESCRIPTION OF PROCEDURE: Under general endotracheal anesthesia with the patient's skin prepped and draped and infiltrated with 0.25% Marcaine with epinephrine, a vertical incision was made anterior to the trachea and above the sternal notch, deepened through abundant adipose tissue, strap muscles divided in the midline and retracted laterally. The thyroid gland mobilized and retracted superiorly. At that point, the anesthesiologist was requested to decrease the inspired gas mixture to room air to minimize the potential for inadvertent airway fire and an incision was made between the third and fourth ring of the trachea. The incision was made in an H-shaped fashion with the size of the tracheal cartilage retracted superiorly and laterally with Allis forceps. The tracheotomy was dilated to accommodate a size 8 tracheostomy tube, nonfenestrated which was then inserted as the endotracheal tube was being withdrawn by the anesthesiologist. The cuff of the tracheostomy tube was inflated with 10 mL of air and there was an immediate return of CO2 capture and return to normal gas exchange. The tracheostomy was then secured with the 2-0 Prolene sutures and a circumferential umbilical tape. The patient remained in unchanged clinical condition at the termination of the procedure, left the operating room following an accurate needle and sponge count. His Margareth was thoroughly informed at [phone]. The patient returned to the ICU with unchanged ventilator settings. MD NORIS Trejo/KVA TID: [id number] RECEIPT: [id number]
--- NOTE | 2024-06-03 13:24 | DVH ---
INDICATION: s/p tracheostomy TECHNIQUE: Single frontal view of the chest was obtained COMPARISON: XY CHEST PORTABLE on DOS: 06/03/24, XY CHEST PORTABLE on DOS: 06/02/24, XY CHEST PORTABLE o n DOS: 06/01/24, XY CHEST PORTABLE on DOS: 05/31/24, XY CHEST PORTABLE on DOS: 05/30/24, XY CHEST PORTAB LE on DOS: 06/03/24 FINDINGS: Lines and Tubes: Status post tracheostomy. Right central venous catheter, right chest tube and enter ic tube are unchanged in position. Lungs: Bibasilar opacities. Pleura: Bilateral pleural effusions. No pneumothorax. Cardiomediastinal contours: Cardiomegaly. Bones: No acute osseous abnormality. IMPRESSION: 1. Cardiomegaly. 2. Bilateral pulmonary opacities which may reflect edema similar to prior study. 3. Status post tracheostomy.
[2024-06-03] MEDS: PANTOPRAZOLE 40 MG/10 ML VIAL INJ IV ONE (15:59)
[2024-06-04] VITALS (96 sets, daily range): BP systolic 87–201; BP diastolic 59–134; PULSE 58–109; RESP 14–28; TEMP 98.4–100.1; O2SAT 90–100
[2024-06-04 03:59] LABS: Basophils # (auto) 0 10 ^3/uL (0-0.2); Eosinophils # (auto) 0.2 10 ^3/uL (0-0.8); Mean Corpuscular Hgb Conc. 32.8 g/dL (32.0-36.0); Monocytes # (auto) 0.8 10 ^3/uL (0-1.3); Neutrophils # (auto) 3.1 10 ^3/uL (1.6-8.6); Nucleated Red Blood Cells % 0.1 %
[2024-06-04 04:03] LABS: Basophils % (auto) 0.7 % (0.0-2.0); Eosinophils % (auto) 3.6 % (0.0-7.0); Hematocrit 34.6 % (41.0-53.0); Hemoglobin 11.3 g/dL (13.5-17.5); Lymphocytes # (auto) 1.7 10 ^3/uL (0.4-5.4); Lymphocytes % (auto) 29.2 % (10.0-50.0); Mean Corpuscular Hemoglobin 25.4 pg (28.0-32.0); Mean Corpuscular Volume 77.6 fL (80.0-100.0); Monocytes % (auto) 13.1 % (0.0-12.0); Neutrophils % (auto) 53.4 % (37.0-80.0); Platelet Count (auto) 290 10^3/uL (140-450); Red Blood Cells 4.46 10^6/uL (4.5-5.90); Red Cell Distribution Width 17.9 % (11.8-14.3); White Blood Cell 5.7 10^3/uL (4.4-10.8)
[2024-06-04 04:16] LABS: Anion Gap 6 (5-15); BUN/Creatinine Ratio 36.8 (10.0-20.0); Blood Urea Nitrogen 21 mg/dL (9-23); Carbon Dioxide 29 mmol/L (20-31); Potassium 3.7 mmol/L (3.5-5.1); Sodium 142 mmol/L (136-145); Total Protein 6.6 g/dL (5.7-8.2)
[2024-06-04 04:17] LABS: Bilirubin, Total 0.6 mg/dL (0.2-1.0)
[2024-06-04 04:32] LABS: Alanine Aminotransferase 69 U/L (7-40); Albumin 2.9 g/dL (3.2-4.8); Alkaline Phosphatase 230 U/L (46-116); Aspartate Aminotransferase 90 U/L (13-40); Calcium 8.6 mg/dL (8.7-10.4); Chloride 107 mmol/L (98-107); Glucose 118 mg/dL (74-106)
--- NOTE | 2024-06-04 05:40 | DVH ---
EXAM: XR Chest, 1 View CLINICAL INDICATION: PNA TECHNIQUE: Frontal view of the chest. COMPARISON: XY CHEST PORTABLE on DOS: 06/03/24, XY CHEST PORTABLE on DOS: 06/03/24, XY CHEST PORTABLE on DOS: 06/02/24, XY CHEST PORTABLE on DOS: 06/01/24, XY CHEST PORTABLE on DOS: 05/31/24 FINDINGS: LUNGS AND PLEURAL SPACES: See below. HEART: Cardiomegaly with pulmonary congestion and edema. Superimposed pneumonia cannot be excluded. MEDIASTINUM: Unremarkable. Normal mediastinal contour. BONES/JOINTS: Unremarkable. No acute fracture. TUBES, LINES AND DEVICES: Stable tubes. OTHER FINDINGS: . . . IMPRESSION: 1. Cardiomegaly with pulmonary congestion and edema. Superimposed pneumonia cannot be excluded. 2. No significant change from the prior exam.
[2024-06-04 07:13] LABS: Base Excess 2.1 mmol/L (-2.0-3.0)
[2024-06-04] MEDS: PANTOPRAZOLE 40 MG/10 ML VIAL INJ IV SCH (08:29)
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
[2024-06-04] MEDS: LIDOCAINE 1% (LOCAL ANESTH.) PF 5ml SDV ID ONE (11:00)
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
[2024-06-04] MEDS: SODIUM CHLOR 0.9% PF (SALINE LOCK) 10ML VIAL/SYR IV SCH (21:52)
[2024-06-05] VITALS (110 sets, daily range): BP systolic 99–201; BP diastolic 47–128; PULSE 60–112; RESP 14–44; TEMP 98.6–99.4; O2SAT 72–100
[2024-06-05 03:49] LABS: Basophils # (auto) 0 10 ^3/uL (0-0.2); Basophils % (auto) 0.7 % (0.0-2.0); Eosinophils # (auto) 0.2 10 ^3/uL (0-0.8); Lymphocytes # (auto) 1.6 10 ^3/uL (0.4-5.4); Monocytes # (auto) 0.7 10 ^3/uL (0-1.3); Red Cell Distribution Width 18.1 % (11.8-14.3)
[2024-06-05 03:54] LABS: Eosinophils % (auto) 3.5 % (0.0-7.0); Hematocrit 36.1 % (41.0-53.0); Hemoglobin 11.7 g/dL (13.5-17.5); Lymphocytes % (auto) 25.2 % (10.0-50.0); Mean Corpuscular Hemoglobin 25.3 pg (28.0-32.0); Mean Corpuscular Hgb Conc. 32.3 g/dL (32.0-36.0); Mean Corpuscular Volume 78.2 fL (80.0-100.0); Monocytes % (auto) 10.2 % (0.0-12.0); Neutrophils # (auto) 3.9 10 ^3/uL (1.6-8.6); Neutrophils % (auto) 60.4 % (37.0-80.0); Nucleated Red Blood Cells % 0.1 %; Platelet Count (auto) 303 10^3/uL (140-450); Red Blood Cells 4.62 10^6/uL (4.5-5.90); White Blood Cell 6.4 10^3/uL (4.4-10.8)
[2024-06-05 04:10] LABS: Anion Gap 7 (5-15); Aspartate Aminotransferase 36 U/L (13-40); BUN/Creatinine Ratio 35.7 (10.0-20.0); Bilirubin, Total 0.4 mg/dL (0.2-1.0); Blood Urea Nitrogen 20 mg/dL (9-23); Calcium 8.8 mg/dL (8.7-10.4); Carbon Dioxide 29 mmol/L (20-31); Chloride 106 mmol/L (98-107); Sodium 142 mmol/L (136-145); Total Protein 6.9 g/dL (5.7-8.2)
[2024-06-05 04:18] LABS: Alanine Aminotransferase 47 U/L (7-40); Albumin 3.1 g/dL (3.2-4.8); Alkaline Phosphatase 205 U/L (46-116); Glucose 126 mg/dL (74-106); Potassium 3.3 mmol/L (3.5-5.1)
--- NOTE | 2024-06-05 05:52 | DVH ---
EXAM: XR Chest, 1 View CLINICAL INDICATION: PNA TECHNIQUE: Frontal view of the chest. COMPARISON: XY CHEST PORTABLE on DOS: 06/04/24, XY CHEST PORTABLE on DOS: 06/03/24, XY CHEST PORTABLE on DOS: 06/03/24, XY CHEST PORTABLE on DOS: 06/02/24, XY CHEST PORTABLE on DOS: 06/01/24 FINDINGS: LUNGS AND PLEURAL SPACES: Bibasilar atelectasis or pneumonia. Pulmonary venous congestion. Pleura l effusions. No pneumothorax. HEART: Unremarkable. No cardiomegaly. MEDIASTINUM: Unremarkable. Normal mediastinal contour. BONES/JOINTS: Unremarkable. No acute fracture. TUBES, LINES AND DEVICES: Tracheostomy tube in satisfactory position. OTHER FINDINGS: . IMPRESSION: 1. Bibasilar atelectasis or pneumonia. 2. Pulmonary venous congestion.
--- NOTE | 2024-06-05 05:57 | DVH ---
Exam: US US GUIDED VASCULAR ACCESS Date: 06/04/2024 10:16 AM Clinical History: picc line placement Comparison: None Findings: Targeted sonographic evaluation of the right basilic vein was obtained utilizing grayscale and color Doppler imaging. IMPRESSION: Sonographic assistance for central line placement. Please refer to procedural report for detailed fin dings.
[2024-06-05] MEDS: POTASSIUM CHL 20MEQ/50ML 50 ML IV ONE (06:15)
[2024-06-05 07:29] LABS: Base Excess 3.6 mmol/L (-2.0-3.0)
[2024-06-05] MEDS ORDERED: LORazepam 2MG/ML-1ML VIAL IV PRN (09:00)
[2024-06-05] MEDS: LORazepam 2MG/ML-1ML VIAL IV PRN ×2 (09:08→14:55)
[2024-06-05] MEDS: LORazepam 2MG/ML-1ML VIAL IV ONE (09:27)
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
[2024-06-05] MEDS: HALOPERIDOL LACTATE 5 MG/ML INJ VIAL IM ONE (13:31)
[2024-06-05] MEDS ORDERED: HALOPERIDOL LACTATE 5 MG/ML INJ VIAL IV PRN (18:15)
[2024-06-05] MEDS: PROPOFOL 100 ML IV SCH (20:18)
[2024-06-06] VITALS (92 sets, daily range): BP systolic 97–172; BP diastolic 48–114; PULSE 65–118; RESP 13–43; TEMP 98.3–99.5; O2SAT 93–100
--- NOTE | 2024-06-06 02:01 | DVH ---
CHEST RADIOGRAPH Indication: PNA Technique: Single frontal view of the chest was obtained COMPARISON: XY CHEST PORTABLE on DOS: 06/05/24, XY CHEST PORTABLE on DOS: 06/04/24, XY CHEST PORTABLE o n DOS: 06/03/24, XY CHEST PORTABLE on DOS: 06/03/24, XY CHEST PORTABLE on DOS: 06/02/24 FINDINGS: Lines and Tubes: Unchanged Lungs: Stable appearing diffuse increased prominence of the pulmonary vasculature and bilateral pleur al effusions. No pneumothorax. Cardiomediastinal contours: Stable cardiomegaly. Bones: Unremarkable IMPRESSION: 1. Stable appearing diffuse increased prominence of the pulmonary vasculature and bilateral pleural e ffusions. 2. Cardiomegaly. 3. Lines and tubes unchanged.
[2024-06-06 04:31] LABS: Basophils # (auto) 0.1 10 ^3/uL (0-0.2); Basophils % (auto) 1.3 % (0.0-2.0); Eosinophils # (auto) 0.2 10 ^3/uL (0-0.8); Hematocrit 33.9 % (41.0-53.0); Hemoglobin 11.9 g/dL (13.5-17.5); Lymphocytes # (auto) 1.6 10 ^3/uL (0.4-5.4); Lymphocytes % (auto) 22.8 % (10.0-50.0); Mean Corpuscular Hemoglobin 27.4 pg (28.0-32.0); Mean Corpuscular Hgb Conc. 35.1 g/dL (32.0-36.0); Mean Corpuscular Volume 78.2 fL (80.0-100.0); Monocytes # (auto) 0.8 10 ^3/uL (0-1.3); Monocytes % (auto) 11.3 % (0.0-12.0); Neutrophils # (auto) 4.3 10 ^3/uL (1.6-8.6); Neutrophils % (auto) 61.6 % (37.0-80.0); Nucleated Red Blood Cells % 0.3 %; Platelet Count (auto) 299 10^3/uL (140-450); Red Blood Cells 4.34 10^6/uL (4.5-5.90); Red Cell Distribution Width 18.5 % (11.8-14.3); White Blood Cell 6.9 10^3/uL (4.4-10.8)
[2024-06-06 04:46] LABS: Albumin 3.2 g/dL (3.2-4.8); Anion Gap 9 (5-15); BUN/Creatinine Ratio 31.3 (10.0-20.0); Bilirubin, Total 0.5 mg/dL (0.2-1.0); Blood Urea Nitrogen 20 mg/dL (9-23); Carbon Dioxide 25 mmol/L (20-31); Chloride 100 mmol/L (98-107); Magnesium 2.1 mg/dL (1.6-2.6); Total Protein 6.8 g/dL (5.7-8.2)
[2024-06-06 05:03] LABS: Alanine Aminotransferase 33 U/L (7-40); Alkaline Phosphatase 171 U/L (46-116); Aspartate Aminotransferase 38 U/L (13-40); Calcium 8.5 mg/dL (8.7-10.4); Glucose 189 mg/dL (74-106); Potassium 3.3 mmol/L (3.5-5.1); Sodium 134 mmol/L (136-145)
[2024-06-06] MEDS: POTASSIUM CHL 20MEQ/50ML 50 ML IV ONE (06:46)
[2024-06-06 07:45] LABS: Base Excess 4.4 mmol/L (-2.0-3.0)
--- NOTE | 2024-06-06 10:29 | DVHPN2 ---
Reviewed: Care Plan, H&P, Labs, Medications, Previous Orders, Radiology, Other Changes from previous H/P or p: No Changes General: Per HPI Objective Vitals Vital Signs Date Time Temp Pulse Resp B/P (MAP) Pulse Ox O2 Delivery O2 Flow Rate FiO2 06/06/24 10:02 118 18 164/94 (117) 98 30 06/06/24 08:00 Mechanical Ventilator+ 06/06/24 07:31 98.3 98.3 Intake/Output Intake and Output 06/06/24 07:00 Intake Total 935.915 ml Output Total 3600 ml Balance -2664.085 ml Intake Oral 120 ml IV Total 775.915 ml Tube Feeding 40 ml Output Urine Total 3600 ml Chest Tube Drainage Total 0 ml General Appearance: moderate distress, Other (Chemically sedated) HEENT: Atraumatic, PERRLA Lungs: Other Chest/Breasts: Other (Right pleural chest tube with serosanguineous fluid) Cardiovascular: Regular rate, Normal S1, Normal S2, Other (Sinus rhythm) Abdomen: Normal bowel sounds, Soft, No tenderness Genitourinary: No Apparent Abnormalities (Sultana catheter) Musculoskeletal: Other (No motor movement) Extremities: Other Skin: Dry, Intact Psych/Mental Status: Other (Unable to assess) Medications Current Medications Medications Dose Ordered Sig/Ahsan Route Start Time Stop Time Status Last Admin Dose Admin Sodium Chloride 10 ml Q8HR IV 05/15/24 06:00 06/06/24 06:39 10 ML Ondansetron HCl 4 mg Q4HP PRN IV 05/15/24 03:00 05/17/24 11:31 4 MG Docusate Sodium 100 mg BIDPRN PRN PO 05/15/24 03:00 Hydralazine HCl 10 mg Q6HP PRN IV 05/15/24 03:30 06/05/24 17:23 10 MG Nitroglycerin 0.4 mg Q5MINP PRN SL 05/15/24 05:15 Empaglifozin 10 mg DAILY PO 05/16/24 10:00 06/05/24 10:47 10 MG Spironolactone 25 mg DAILY PO 05/16/24 10:00 06/05/24 10:47 25 MG Midazolam HCl 50 ml @ 1 mls/hr Q24H IV 05/22/24 09:00 06/03/24 07:55 2 MLS/HR Albuterol 2.5 mg Q6HR NEB 05/23/24 12:00 06/06/24 06:05 2.5 MG Ipratropium Guys 0.5 mg Q6HR NEB 05/23/24 12:00 06/06/24 06:05 0.5 MG Furosemide 40 mg DAILY IV 05/24/24 10:00 06/05/24 10:46 40 MG Enteral Nutritional Formula 1,000 ml 50ML/HR GT 05/24/24 07:30 06/05/24 22:09 1,000 ML Acetaminophen 650 mg Q6HP PRN PO 05/24/24 08:00 05/26/24 21:05 650 MG Labetalol HCl 10 mg Q6HP PRN IV 05/26/24 10:15 06/05/24 20:19 10 MG Meropenem 50 ml @ 17 mls/hr Q8HR IV 05/26/24 22:00 06/06/24 06:40 17 MLS/HR Metoclopramide HCl 5 mg Q8HPRN PRN IV 05/26/24 18:00 Polyethylene Glycol 17 gm DAILYPRN PRN PO 05/27/24 09:00 Nicotine 1 patch DAILY TD 05/30/24 10:00 06/05/24 10:48 1 PATCH Carvedilol 12.5 mg Q12HR PO 05/31/24 22:00 06/05/24 10:47 12.5 MG Losartan Potassium 100 mg DAILY PO 06/02/24 10:00 06/05/24 13:29 100 MG Diphenhydramine HCl 50 mg Q12H PRN IV 06/02/24 06:00 Fentanyl Citrate 250 ml @ 2.5 mls/hr Q24H IV 06/01/24 19:00 06/05/24 20:52 2.5 MLS/HR Potassium Chloride 100 ml @ 50 mls/hr Q2H IV 06/02/24 08:15 06/02/24 12:14 UNV Lactulose 30 ml Q6H GT 06/02/24 16:00 06/06/24 04:14 30 ML Pantoprazole Sodium 40 mg DAILY IV 06/04/24 10:00 06/05/24 10:46 40 MG Sodium Chloride 10 ml QSHIFT@10,22 IV 06/04/24 22:00 06/05/24 22:06 10 ML Lorazepam 2 mg Q6HP PRN IV 06/05/24 15:00 06/05/24 14:55 2 MG Haloperidol Lactate 5 mg Q8HP PRN IV 06/05/24 18:15 Dexmedetomidine HCl 400 mcg/ Dextrose 100 ml @ 6.865 mls/ hr [id number] IV 06/05/24 18:30 06/06/24 06:40 6.865 MLS/HR Propofol 100 ml @ 4.119 mls/ hr Q24H IV 06/05/24 20:00 06/06/24 08:09 20.595 MLS/HR Laboratory Results Laboratory Tests 06/06/24 03:37 Chemistry Test 06/06/24 03:37 Albumin 3.2 g/dL (3.2-4.8) Calcium Level 8.5 mg/dL (8.7-10.4) L Magnesium Level 2.1 mg/dL (1.6-2.6) Total Protein 6.8 g/dL (5.7-8.2) LFT Test 06/06/24 03:37 Alanine Aminotransferase (ALT) 33 U/L (7-40) Alkaline Phosphatase 171 U/L (46-116) H Aspartate Amino Transferase (AST) 38 U/L (13-40) Total Bilirubin 0.5 mg/dL (0.2-1.0) Urinalysis Test 05/15/24 03:30 Urine Color Yellow (Yellow) Urine Clarity Clear (Clear) Urine pH 6.0 (5.0-9.0) Urine Specific [place] 1.030 (1.001-1.035) Urine Protein Trace (Negative) H Urine Ketones Negative (Negative) Urine Blood Negative /uL (Negative) Urine Nitrite Negative (Negative) Urine Bilirubin Negative (Negative) Urine Urobilinogen Normal mg/dL (Negative) Urine Leukocyte Esterase Negative /uL (Negative) Urine RBC 1 /hpf (0 - 3) Urine Microscopic WBC /HPF (0-3) Urine Squamous Epithelial Cells None seen /hpf (<5) Urine Bacteria None seen /hpf (None Seen) Urine Glucose Normal mg/dL (Normal) Blood Gas Results Test 06/06/24 07:32 Arterial Blood pH 7.511 (7.350-7.450) FiO2 % 30.0 Microbiology Microbiology Date/Time Source Procedure Growth Status 05/28/24 12:40 Lung - Final Resulted 05/28/24 12:40 Lung - Final Resulted 05/28/24 12:40 Lung Pending Resulted 05/28/24 12:40 Lung Pending Resulted 05/28/24 12:40 Lung - Final See Separate Report... Resulted 05/28/24 12:40 Bronchial Washings Gram Stain - Final Complete 05/28/24 12:40 Bronchial Washings Respiratory Culture - Final Complete 05/23/24 03:30 Urine - Sultana Port Urine Culture - Final Complete 05/22/24 08:30 Pleural Fluid Gram Stain - Final Complete 05/22/24 08:30 Pleural Fluid Anaerobic Culture - Final Complete 05/22/24 08:30 Pleural Fluid Aerobic Culture - Final Complete 05/15/24 05:20 Blood Blood Culture - Final NO GROWTH AFTER 5 DAYS OF INCUBATION. Complete Labs and/or images reviewed: Labs reviewed by me, Image(s) reviewed by me Assessment/Plan Assessment/Plan Covering for resident physician Dr. Golden Failure trach collar, patient was placed back on ventilator Metabolic encephalopathy Sepsis secondary to pneumonia: Continue antibiotics Acute decompensated congestive heart failure Hypertensive urgency AFib History of pulmonary embolism and DVT Noncardiac chest pain Obesity History of substance abuse amphetamine and marijuana Time spent 70 minutes Patient is full code Advanced care planning time 20 minutes Condition poor Plan discussed with: Patient Date of Service: Jun 06, 2024 Billing Provider: LIONEL COTTRELL MD Common Visit Codes: [id number] CARE 30-74 MIN LIONEL COTTRELL MD Jun 06, 2024 10:29
[2024-06-06 13:07] LABS: Chloride 102 mmol/L (98-107); Sodium 140 mmol/L (136-145)
[2024-06-06 13:08] LABS: Anion Gap 11 (5-15); Carbon Dioxide 27 mmol/L (20-31)
[2024-06-06 13:09] LABS: Calcium 9.1 mg/dL (8.7-10.4)
[2024-06-06 13:14] LABS: BUN/Creatinine Ratio 31.3 (10.0-20.0); Blood Urea Nitrogen 20 mg/dL (9-23); Glucose 125 mg/dL (74-106)
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
== END 2024-06-06 21:27 | DRG 5 ==
LOC: EDBD 23:40 → ER 23:40 → OVERFLOW 05-15 05:05 → TELE-CENTR 05-15 18:15 → ICU WEST 05-22 09:30
PROVIDERS: ADMIT Internal Medicine Pulmonary Disease; ATTEND Internal Medicine Pulmonary Disease
PROC: 0W993ZX Drainage of Right Pleural Cavity, Percutaneous Approach, Diagnostic (ICD-10-PCS; 2024-05-15)
PROC: 0W993ZX Drainage of Right Pleural Cavity, Percutaneous Approach, Diagnostic (ICD-10-PCS; 2024-05-17)
PROC: 0W9930Z Drainage of Right Pleural Cavity with Drainage Device, Percutaneous Approach (ICD-10-PCS; 2024-05-20)
PROC: 5A1955Z Respiratory Ventilation, Greater than 96 Consecutive Hours (ICD-10-PCS; 2024-05-22)
PROC: 0W9900Z Drainage of Right Pleural Cavity with Drainage Device, Open Approach (ICD-10-PCS; 2024-05-22)
PROC: 0BH17EZ Insertion of Endotracheal Airway into Trachea, Via Natural or Artificial Opening (ICD-10-PCS; 2024-05-22)
PROC: 0B9D8ZX Drainage of Right Middle Lung Lobe, Via Natural or Artificial Opening Endoscopic, Diagnostic (ICD-10-PCS; 2024-05-28)
PROC: 0B9D8ZX Drainage of Right Middle Lung Lobe, Via Natural or Artificial Opening Endoscopic, Diagnostic (ICD-10-PCS; 2024-05-30)
PROC: 0BC78ZZ Extirpation of Matter from Left Main Bronchus, Via Natural or Artificial Opening Endoscopic (ICD-10-PCS; 2024-05-30)
PROC: 0BC38ZZ Extirpation of Matter from Right Main Bronchus, Via Natural or Artificial Opening Endoscopic (ICD-10-PCS; 2024-05-30)
PROC: 0B110F4 Bypass Trachea to Cutaneous with Tracheostomy Device, Open Approach (ICD-10-PCS; principal; 2024-06-03 11:30)
PROC: 02HV33Z Insertion of Infusion Device into Superior Vena Cava, Percutaneous Approach (ICD-10-PCS; 2024-06-04)
PROC: B548ZZA Ultrasonography of Superior Vena Cava, Guidance (ICD-10-PCS; 2024-06-04)
DX: A41.50 Gram-negative sepsis, unspecified (principal); R65.21 Severe sepsis with septic shock; J86.9 Pyothorax without fistula; G93.41 Metabolic encephalopathy; J15.69 Pneumonia due to other Gram-negative bacteria; J96.21 Acute and chronic respiratory failure with hypoxia; I31.39 Other pericardial effusion (noninflammatory); I50.23 Acute on chronic systolic (congestive) heart failure; J91.8 Pleural effusion in other conditions classified elsewhere; J44.1 Chronic obstructive pulmonary disease with (acute) exacerbation; I11.0 Hypertensive heart disease with heart failure; I48.91 Unspecified atrial fibrillation; E11.65 Type 2 diabetes mellitus with hyperglycemia; E66.01 Morbid (severe) obesity due to excess calories; Z68.41 Body mass index [BMI] 40.0-44.9, adult; R59.0 Localized enlarged lymph nodes; F15.10 Other stimulant abuse, uncomplicated; I16.0 Hypertensive urgency; B19.20 Unspecified viral hepatitis C without hepatic coma; I78.1 Nevus, non-neoplastic; J98.09 Other diseases of bronchus, not elsewhere classified; K74.60 Unspecified cirrhosis of liver; R04.2 Hemoptysis; J44.0 Chronic obstructive pulmonary disease with (acute) lower respiratory infection; F20.9 Schizophrenia, unspecified; F17.210 Nicotine dependence, cigarettes, uncomplicated; F41.9 Anxiety disorder, unspecified; J15.9 Unspecified bacterial pneumonia; Z88.1 Allergy status to other antibiotic agents; Z79.2 Long term (current) use of antibiotics; Z79.899 Other long term (current) drug therapy; Z91.199 Patient's noncompliance with other medical treatment and regimen due to unspecified reason; Z86.718 Personal history of other venous thrombosis and embolism; Z86.711 Personal history of pulmonary embolism; I25.2 Old myocardial infarction; Z99.11 Dependence on respirator [ventilator] status
CPT/HCPCS: 10005; 32555; 36415; 36569; 36600; 70450; 71045; 71250; 71275; 74018; 76705; 76937; 76942; 77012; 80048; 80053; 80202; 80307; 80320; 81001; 82565; 82805; 82962; 83036; 83605; 83615; 83735; 83880; 83986; 84100; 84132; 84484; 85007; 85025; 85027; 85610; 85730; 86704; 86706; 86708; 86803; 86850; 86900; 86901; 87040; 87070; 87075; 87081; 87086; 87205; 87340; 89051; 93005; 94003; 94640; 96361; 96365; 96367; 96375; A4223; A4565; G0378; J1100; J1956; J2003; J2185; J2250; J2405; J2470; J2543; J2704; J3480; J3490; J7060